=== PATIENT | female | born 1945 | race Caucasian/White ===

== ENCOUNTER → 2017-08-23 15:52 | Outpatient (CLI) | payer MEDICARE, OTHER, SELFPAY | PROVIDERS: Family Provider Family Medicine; PCP Family Medicine; Visit Provider Otolaryngology Otolaryngology/Facial Plastic Surgery | DX: J32.9 Chronic sinusitis, unspecified (principal) | CPT/HCPCS: 87070; 87077; 87205 ==

== ENCOUNTER 2017-10-02 17:39 | Emergency (ER) | payer MEDICARE, OTHER, SELFPAY ==
[2017-10-02 17:46] VITALS: BP 171/93; PULSE 80; RESP 12; TEMP 36.7; O2SAT 99; BMI 26.8
--- NOTE | 2017-10-02 18:01 | EKG12_ITS ---
Test Reason : DIZZINESS Blood Pressure : / mmHG Vent. Rate : 078 BPM Atrial Rate : 078 BPM P-R Int : 160 ms QRS Dur : 082 ms QT Int : 398 ms P-R-T Axes : 056 -35 041 degrees QTc Int : 453 ms Normal sinus rhythm Left axis deviation Abnormal ECG Confirmed by LUISITO MATHEW, ANUP ([id number]), metropolitan editor DEAN WHIPPLE ([id number]) on 10/05/2017 11:21:21 AM Referred By: Fuentes Zhang Confirmed By:ANUP JORGE MD
[2017-10-02 18:17] LABS: Absolute Lymphocyte Count 1.95 X10^3/ul (0.83-4.51); Absolute Neutrophil Count 3.6 X10^3/uL (2.0-7.7); Basophil# 0.05 X10^3/uL; Basophil% 0.8 % (0-1); Eosinophil# 0.18 X10^3/uL; Eosinophils% 2.9 % (0-5); Hematocrit 42.7 % (37-47); Hemoglobin 14.1 g/dl (12.0-15.0); Lymphocyte # 1.95 X10^3/ul (4.0); Lymphocyte % 31.2 % (19-41); Mean Corpuscular Hgb 30.3 pg (27.0-32.0); Mean Corpuscular Volume 91.8 fL (81-99); Mean Platelet Vol. 9.4 fl (6.2-12.0); Monocyte# 0.52 X10^3/uL; Monocyte% 8.3 % (0-10); Neutrophil # 3.55 X10^3/uL (2.7-7.7); Neutrophil % 56.6 % (47-70); Platelet Count 304 K/mm3 (150-450); RBC Distribution Width CV 14.3 % (11.6-14.6); RBC Distribution Width SD 46.8 fl (35.1-43.9); Red Blood Count 4.65 M/mm3 (4.2-5.4); White Blood Count 6.3 K/mm3 (4.4-11.0)
[2017-10-02 18:21] LABS: POSITIVE COUNT NO; POSITIVE DIFFERENTIAL NO; POSITIVE MORPHOLOGY NO
--- NOTE | 2017-10-02 18:30 | CT_ITS ---
STUDY: CT BRAIN WITHOUT CONTRAST REASON FOR EXAM: Female, 72 years old. Dizziness. RADIATION DOSAGE (If Supplied By Facility): CTDIvol = ( 44.99 ) mGy, DLP = ( 745.49 ) mGycm TECHNIQUE: Transaxial CT imaging of the brain was performed without administration of intravenous contrast material. Individualized dose optimization techniques were used for this CT. COMPARISON: MRI March 07, 2014 FINDINGS: Normal soft tissue structures. Normal calvarium. Normal size ventricles and extra-axial spaces for the patient's age. Normal white matter tracts of the cerebral hemispheres. Normal basal ganglia and thalami. Normal brainstem. Normal cerebellum. There is no intracranial hemorrhage. There are no findings of an acute ischemic infarction. Normal visualized paranasal sinuses. CT/Brain/Head without Contrast IMPRESSION: Normal unenhanced CT scan of the brain. Electronically Signed: Kenny Combs MD at 19:11 EDT , Service support ,
[2017-10-02 18:36] LABS: Anion Gap 7 (5-15); BUN 15 mg/dL (7-18); BUN/Creat Ratio 16.6 RATIO (10-20); Calcium,Total 9.6 mg/dL (8.5-10.1); Chloride 107 mmol/L (98-107); EST Glomerular Filtration Rate 65 mL/min (>60); Est Glom Filt Rate - Afr Amer 79 mL/min (>60); Estimated Creatinine Clearance 42.64 ml/min; Glucose 84 mg/dL (74-106); Potassium 3.7 mmol/L (3.5-5.1); Sodium Level 142 mmol/L (136-145)
[2017-10-02] MEDS: Meclizine 12.5 MG Tablet 25 MG PO (19:05)
[2017-10-02 19:08] VITALS: BP 142/72; PULSE 78; RESP 20; O2SAT 96
[2017-10-02 19:36] LABS: Bacteria 0 SEEN /hpf (None Seen); Mucous, Urine 0 SEEN /hpf (<or=2+); Red Blood Cells-Urine 0 SEEN /hpf (0-5); Squamous Epithelial Cells - UA 0 SEEN /hpf (5-10)
[2017-10-02 19:38] LABS: Color, Urine Yellow (Yellow); Glucose, Dipstick Normal (Normal); Ketone-Dipstick 5 mg/dl (Negative); Leukocyte Esterase-Dipstick 25 /ul (Negative); Nitrite-Dipstick Negative (Negative); Occult Blood-Urine Negative /ul (Negative); Protein-Dipstick Negative (Negative); Specific Gravity, Urine 1.015 (1.002-1.030); Urine Bilirubin Dipstick Negative (Negative); Urine Clarity Sl. Cloudy (Clear); Urine Urobilinogen Normal (Normal); Urine pH 6.5 (5.0 - 8.0)
[2017-10-02 19:46] LABS: White Blood Cells 0-5 SEEN /hpf (0-5)
--- NOTE | 2017-10-02 19:59 | ED.VISSUMM ---
- ER Visit Summary Date of Service: 10/02/17 Chief Complaint: Dizziness History of Present Illness: The patient is a 72 F who presents with dizziness that began approximately 5 hours prior to arrival. Patient states her dizziness feels like she is off balance. Patient states it is intermittent and lasts several minutes. Patient states it is worse with some movement of her head. Patient states there are times when she can move her head and feel off balance and other times she can move her head and feel normal. Patient denies any tinnitus. Patient denies any hearing changes. Patient denies any nausea or vomiting. Patient denies any fevers or chills. Patient denies any headaches. Patient denies any chest pain or shortness of breath. Physical Examination: Vital signs are stable. Patient is afebrile. Patient is in no acute distress. Pupils are equal, round, reactive to light bilateral. Extraocular muscles are intact. There is no nystagmus noted. Tympanic membranes are clear bilaterally. Oral mucosa is pink and moist. Oropharynx is clear. Neck is supple. Trachea is midline. There is no JVD or lymphadenopathy appreciated. Heart was regular rate and rhythm. Lungs are clear and equal bilaterally. There is good respiratory effort noted. Abdomen is soft. Bowel sounds are normal. There is no tenderness noted. Cranial nerves II through XII are intact. There are no focal motor or sensory deficits noted. The remaining physical exam is within normal limits. Test Results: CT scan of the brain was obtained and did not show any acute intracranial abnormality. Basic labs were within normal limits. There is no evidence of urinary tract infection. Treatment Plan: Patient felt better on reevaluation. Patient states her dizziness has resolved. Patient was given a prescription for meclizine to take as needed. She was instructed to follow-up with her primary care physician in 7-10 days. Patient understood and was agreeable with the plan. All questions were answered. Disposition: Discharge home Impression: Dizziness This note was generated with [employer] dictation software. It may contain incorrect words, spelling, and punctuation that were not noted in review of the chart prior to signing ED Disposition - Plan for ED Patient: Disposition: Home or Assisted Living Chief Complaint: Dizziness Diagnosis: Dizziness Instructions: ED Dizziness UKO Prescriptions: Meclizine HCl 25 mg PO Q8H PRN PRN #20 tab PRN Reason: Dizziness Referrals: Martínez Cruz MD [Primary Care Provider] -
[2017-10-02 20:13] VITALS: BP 160/80; PULSE 76; RESP 18; O2SAT 95
[2017-10-02 21:18] VITALS: BP 153/78; PULSE 81; RESP 16; O2SAT 96
== END 2017-10-02 21:44 | disposition home or self-care (01) ==
PROVIDERS: Emergency Provider Emergency Medicine; Family Provider Family Medicine; PCP Family Medicine
DX: R42 Dizziness and giddiness (principal); M06.9 Rheumatoid arthritis, unspecified; B15.9 Hepatitis A without hepatic coma; Z79.899 Other long term (current) drug therapy
CPT/HCPCS: 70450; 80048; 81001; 84484; 85025; 93005; 99285; A4216

== ENCOUNTER 2017-11-20 14:00 | Outpatient (RCR) | payer MEDICARE, OTHER, SELFPAY ==
--- NOTE | 2017-09-18 09:10 | HP.PTEVAL_ITS ---
Patient's Visit Information ROSALES BRAUN is a 72 year old F referred to Physical Therapy by Fuentes NEWSOME with a diagnosis of Spondylolithesis L4-L5, spndylolysis. Date of Evaluation: 09/18/17 Physical Therapist: Rebecca Ferrara - Visit Plan Frequency: 2x /Week Duration: 4 Weeks Plan: 2X/ week for 3-4 weeks to work on mat core stability and then progressing to gym exercises as pt does have Silver Sneakers. Work on tecnique with lifting , vaccumming etc. Also work on LE strengthening, stretching, posture with HEP - Subjective Subjective: Pt has been having LBP. They have DX her with spondylolithesis at L4-L5. She has back pain when she does too much (vaccumm, sweep and mop floor, up and down stairs with loas in arms and doesnt bother then but the next day, sitting too long in a chair it bothers her).. She wants to avoid sciatica. She is taking care of 99 year old dad and she is not lifting him just mostly house work and medical care. Pt has not trouble with stairs without a load. She sleeps ok.... She has occ some weakness in R leg and no N&T. In last 6-8 months she notices the weakness in the R leg. - Pain back pain Pain Intensity (Out of 10): 2 Pain Intensity Range: 10 - Objective Gait: walks with L leg out into abduction and decreased stance time on the L but otherwise normal gait pattern.. Trunk AROM: Flexion 75%, ext 25%. LE MMT: hip flex R 4-/5 and L 4/5, hip abd B 4/5, knee flex B 4/5, B knee ext 4/5. Patellar reflex R 0/3 and L 2+/3. -SLR. tight HS B and tight gastroc B with some discomfort on the L (ankle brace due to OA and synovitis of the L ankle) - Goals Goal 1:: I HEP Goal Time Frame: 4-6 Weeks Goal 2:: Decrease back pain to 1/10 with lifting and sitting in a chair. Goal Time Frame: 4-6 Weeks Goal 3:: Be able to demonstrate proper lifting techniques with ab brace with no back pain. Goal Time Frame: 4-6 Weeks Goal 4:: Be able to vaccumm without pain Goal Time Frame: 4-6 Weeks - Rehabilitation Potential Rehabilitation Potential: Good - Anticipated Interventions Patient/Client Instruction: Educate patient on: Plan of Care For the Purpose of:: To decrease pain, To decrease swelling/inflammation, To increase ROM, To improve nutrient delivery to tissue, To improve muscle performance and motor function, To improve ability to perform ADL's, To improve health of tissue, To increase flexibility/ROM Therapeutic Exercise to Include: Strength training, Postural training, Flexibilty training, Gait and locomotor training, Active ROM, Dynamic Lumbar Stabilization, Scapular Strength/Stabilization For the Purpose of:: To decrease pain, To decrease swelling/inflammation, To increase ROM, To improve nutrient delivery to tissue, To improve muscle performance and motor function, To improve ability to perform ADL's, To increase tolerance to activity/condition/position, To improve performance and independence with ADL's, To improve health of tissue, To increase flexibility/ ROM IF ES: Yes Cryotherapy (ice pack, ice massage): Yes Ultrasound (thermal/non thermal): Yes For the Purpose of:: To decrease pain, To increase ROM, To improve nutrient delivery to tissue Thank you for the opportunity to evaluate your patient. For Medicare and Medicare HMO plans, please review the plan of care and approve it. It will need to be FAXED BACK to us at [phone] for Medicare purposes. Please let me know if there are questions or concerns regarding this plan of care. Physician Signature: Date:
--- NOTE | 2017-10-19 14:18 | HP.PTEVAL_ITS ---
Patient's Visit Information ROSALES BRAUN is a 72 year old F referred to Physical Therapy by Fuentes Zhang with a diagnosis of Spondylolithesis L4-L5, spndylolysis. Date of Evaluation: 09/18/17 Physical Therapist: Rebecca Ferrara - Visit Plan Frequency: 2x /Week Duration: 4 Weeks Plan: Give gym routine next visit to be able to do during silver sneakers on her own independently. - Subjective Subjective: Pt has been having LBP. They have DX her with spondylolithesis at L4-L5. She has back pain when she does too much (vaccumm, sweep and mop floor, up and down stairs with loas in arms and doesnt bother then but the next day, sitting too long in a chair it bothers her).. She wants to avoid sciatica. She is taking care of 99 year old dad and she is not lifting him just mostly house work and medical care. Pt has not trouble with stairs without a load. She sleeps ok.... She has occ some weakness in R leg and no N&T. In last 6-8 months she notices the weakness in the R leg. - Pain back pain Pain Intensity (Out of 10): 0 Pain Intensity Range: 10 - Objective Gait: walks with L leg out into abduction and decreased stance time on the L but otherwise normal gait pattern.. Trunk AROM: Flexion 75%, ext 25%. LE MMT: hip flex R 4-/5 and L 4/5, hip abd B 4/5, knee flex B 4/5, B knee ext 4/5. Patellar reflex R 0/3 and L 2+/3. -SLR. tight HS B and tight gastroc B with some discomfort on the L (ankle brace due to OA and synovitis of the L ankle) - Goals Goal 1:: I HEP Goal Time Frame: 4-6 Weeks Goal 2:: Decrease back pain to 1/10 with lifting and sitting in a chair. Goal Time Frame: 4-6 Weeks Goal 3:: Be able to demonstrate proper lifting techniques with ab brace with no back pain. Goal Time Frame: 4-6 Weeks Goal 4:: Be able to vaccumm without pain Goal Time Frame: 4-6 Weeks - Rehabilitation Potential Rehabilitation Potential: Good - Anticipated Interventions Patient/Client Instruction: Educate patient on: Plan of Care For the Purpose of:: To decrease pain, To decrease swelling/inflammation, To increase ROM, To improve nutrient delivery to tissue, To improve muscle performance and motor function, To improve ability to perform ADL's, To improve health of tissue, To increase flexibility/ROM Therapeutic Exercise to Include: Strength training, Postural training, Flexibilty training, Gait and locomotor training, Active ROM, Dynamic Lumbar Stabilization, Scapular Strength/Stabilization For the Purpose of:: To decrease pain, To decrease swelling/inflammation, To increase ROM, To improve nutrient delivery to tissue, To improve muscle performance and motor function, To improve ability to perform ADL's, To increase tolerance to activity/condition/position, To improve performance and independence with ADL's, To improve health of tissue, To increase flexibility/ ROM IF ES: Yes Cryotherapy (ice pack, ice massage): Yes Ultrasound (thermal/non thermal): Yes For the Purpose of:: To decrease pain, To increase ROM, To improve nutrient delivery to tissue Thank you for the opportunity to evaluate your patient. For Medicare and Medicare HMO plans, please review the plan of care and approve it. It will need to be FAXED BACK to us at [phone] for Medicare purposes. Please let me know if there are questions or concerns regarding this plan of care. Physician Signature: Date:
--- NOTE | 2017-11-20 15:00 | HP.PTDCSUM ---
HP - PT D/C Summary It has been my pleasure to treat ROSALES BRAUN under orders from Fuentes Zhang, for the diagnosis of Spondylolithesis L4-L5, spndylolysis for a total of 10 visit(s). Discharge Date: 11/20/17 Please see the following information for a summary of their discharge status. - Subjective Subjective: She has not gotten much done last week as she wanted to do cause her had surgery and dad had some bad days. The previous week she was able to do 3X/ week here last week. Her back pain has been not bad... Pt feels comfortable with completeing exercises at home. - Pain back pain Pain Intensity (Out of 10): 0 - Objective Objective/Function: Pt still has some pain but is motiviated to continue with strengthening - Goals Goal 1:: I HEP Goal Progress: Goal Met Goal 2:: Decrease back pain to 1/10 with lifting and sitting in a chair. Goal Progress: Goal Met Goal 3:: Be able to demonstrate proper lifting techniques with ab brace with no back pain. Goal Progress: Goal Met Goal 4:: Be able to vaccumm without pain Goal Progress: Progressing - Plan Plan: dc pt TO hep - D/C Information Discharge Comments: dc pt If there are questions or concerns regarding this patient's physical therapy, please feel free to call me at [phone]. Thank you for the referral of this patient. Sincerely, Rebecca Ferrara
== END 2017-11-20 19:00 | disposition home or self-care (01) ==
LOC: PT 14:00
PROVIDERS: Family Provider Family Medicine; PCP Family Medicine; Visit Provider Internal Medicine Rheumatology
DX: M43.06 Spondylolysis, lumbar region (principal); R42 Dizziness and giddiness; M06.9 Rheumatoid arthritis, unspecified; B15.9 Hepatitis A without hepatic coma; Z79.899 Other long term (current) drug therapy
CPT/HCPCS: 70450; 80048; 81001; 84484; 85025; 93005; 97110; 97161; 97530; 99285; A4216

== ENCOUNTER → 2018-02-19 07:24 | Outpatient (CLI) | payer MEDICARE, OTHER, SELFPAY | PROVIDERS: Family Provider Family Medicine; PCP Family Medicine; Visit Provider Family Medicine | DX: Z12.31 Encounter for screening mammogram for malignant neoplasm of breast (principal) | CPT/HCPCS: 77063; 77067 ==

== ENCOUNTER → 2018-05-20 19:52 | Outpatient (CLI) | payer MEDICARE, OTHER, SELFPAY | PROVIDERS: Family Provider Family Medicine; PCP Family Medicine; Visit Provider Family Medicine | DX: G47.10 Hypersomnia, unspecified (principal) | CPT/HCPCS: 95810 ==

== ENCOUNTER → 2018-12-10 20:35 | Outpatient (CLI) | payer MEDICARE, OTHER, SELFPAY | PROVIDERS: Family Provider Family Medicine; PCP Family Medicine; Referring Provider Nurse Practitioner Primary Care; Visit Provider Nurse Practitioner Primary Care | DX: G47.33 Obstructive sleep apnea (adult) (pediatric) (principal) | CPT/HCPCS: 95811 ==

== ENCOUNTER → 2019-03-18 07:58 | Outpatient (CLI) | payer MEDICARE, OTHER, SELFPAY ==
--- NOTE | 2019-03-18 08:02 | BI_ITS ---
MAMMOGRAPHY - BILATERAL SCREENING REASON FOR EXAM: Female, 74 years old. Routine annual screening examination. PERTINENT HISTORY: Mother with breast cancer. Remote left stereotactic breast biopsy. TECHNIQUE: Digital bilateral breast ericka (3D mammographic acquisition) in the CC and MLO projections. 2-D mediolateral oblique (MLO) and craniocaudad (CC) views of both breasts were obtained. CAD: Full Field Digital Mammography with Computer Added Detection was performed. COMPARISON: Comparison is made with prior study dated February 19, 2018 and February 15, 2017. FINDINGS: Breast Composition: The breasts are heterogeneously dense, which may obscure small masses. There are no dominant masses or suspicious calcifications. Stable small benign-appearing bilateral axillary lymph nodes. No other significant abnormalities are identified. There has been no significant change since the prior study. BI/SCREEN MAMM (CAD) W/ERICKA BILAT IMPRESSION: Stable bilateral screening mammogram. Yearly follow-up mammogram recommended. (A) ASSESSMENT CATEGORY: BIRADS Category 2: Benign. A letter regarding these results will be sent to the patient by the facility within 30 days. Approximately 10% of breast cancers are not detected by mammography. A normal mammogram should not delay biopsy of a clinically suspicious abnormality. [id number] Electronically Signed: Fernando Mo, at 9:01 EDT , Service support ,
--- NOTE | 2019-03-18 08:20 | BD_ITS ---
STUDY: DUAL ENERGY X-RAY ABSORPTIOMETRY / DXA REASON FOR EXAM: Female, 74 years old. Early menopause. Loss of height. TECHNIQUE: Bone Mineral Density (BMD) measurements of lumbar spine and bilateral hips were obtained. COMPARISON: Comparison is made with prior examination dated March 14, 2017. FINDINGS: Lumbar Spine (L1-L4): g/cm2 (0.932) / T-score (-1.9) / Z-score (-0.2) Findings are suggestive of osteopenia with a moderate fracture risk. Left Femur Total: g/cm2 (0.846) / T-score (-1.3) / Z-score (0.4) Left Femoral Neck: g/cm2 (0.781) / T-score (-1.8) / Z-score (0.0) Right Femur Total: g/cm2 (0.845) / T-score (-1.3) / Z-score (0.4) Right Femoral Neck: g/cm2 (0.788) / T-score (-1.8) / Z-score (0.1) The T-Scores on the most recent prior examination were: Lumbar Spine (L1-L4): There has been worsening of bone density since the previous examination. Left Femur Total: which represents an improvement of 1.9%. Right Femur Total: which represents a worsening of 2%. BD/Dexa Bone Density Study IMPRESSION: The patient is considered osteopenic as outlined below according to World [place] Organization (WHO) criteria with a moderate fracture risk. There has been worsening of bone density since the previous examination. Reference Information: The T-score is the number of standard deviations above or below the standard which is normal for young adults at their peak bone mineral density. The World Health Organization (WHO) interprets the T-scores as follows: Above -1 Normal bone density Between -1 and -2.5 Osteopenia Equal to / or below -2.5 Osteoporosis As a practical clinical guideline, osteopenia may be graded as follows: Mild -1 through -1.5 Moderate -1.6 through -2.0 Severe -2.1 through -2.4 The Z-score is the number of standard deviations above or below age-matched controls. A Z-score of less than -1.5 would be considered abnormal. References: 1. NIH Osteoporosis and Related Bone Diseases http://www.osteo.org 2. International Society for Clinical Densitometry http://www.iscd.org 3. National Osteoporosis Foundation http://www.nof.org Electronically Signed: Fernando Mo, at 13:31 EDT , Service support ,
== END ==
PROVIDERS: Family Provider Family Medicine; PCP Family Medicine; Referring Provider Family Medicine; Visit Provider Family Medicine
DX: Z12.31 Encounter for screening mammogram for malignant neoplasm of breast (principal); Z80.3 Family history of malignant neoplasm of breast; M85.80 Other specified disorders of bone density and structure, unspecified site; Z78.0 Asymptomatic menopausal state
CPT/HCPCS: 77063; 77067; 77080

== ENCOUNTER 2019-05-18 19:11 | Emergency (ER) | payer MEDICARE, OTHER, SELFPAY ==
[2019-05-18 19:12] VITALS: BP 161/97; PULSE 115; RESP 16; TEMP 37.7; O2SAT 99; BMI 29.0
--- NOTE | 2019-05-18 20:52 | EKG12_ITS ---
Test Reason : GENERAL ILLNESS Blood Pressure : / mmHG Vent. Rate : 091 BPM Atrial Rate : 091 BPM P-R Int : 156 ms QRS Dur : 082 ms QT Int : 368 ms P-R-T Axes : 040 -35 032 degrees QTc Int : 452 ms Normal sinus rhythm Left axis deviation Possible Anterior infarct , age undetermined Abnormal ECG Confirmed by LUISITO MATHEW, ANUP ([id number]), website/blog editor MARTIN CANELA ([id number]) on 05/21/2019 11:33:30 AM Referred By: KAYLIN Confirmed By:ANUP JORGE MD
--- NOTE | 2019-05-18 20:59 | ED.VIS.GEN ---
History of Present Illness Chief Complaint: General Illness Informant: Patient Onset: Yesterday Context: Sudden Onset Timing: Intermittent Narrative: Patient is a 74-year-old female with a history of rheumatoid arthritis, on Rotuxin, Yeager and GERD presenting with fevers, chills and myalgias. Patient states her symptoms started yesterday and she felt like she is may be coming down with a cold. She notes she also has associated sore throat and sinus pressure. She checked her temperature tonight and it was 100.8 and an hour later it was 102. Patient did not take any medications prior to arrival. She denies any associated nausea or vomiting. She denies any abdominal pain or abnormal bowel movements. She denies any symptoms. She does she has a mild headache from the sinus pressure but denies any neck pain. She denies any rash. She denies any other complaints at this time. Past Medical History - Allergies and Home Meds Allergies/Adverse Reactions: Allergies tramadol Allergy (Mild, Verified 05/18/19 19:13) NAUSEA, VOMIT acetaminophen [From Tylenol] Adverse Reaction (Intermediate, Verified 05/18/19 19:13) LIVER ENZ UP ibuprofen Adverse Reaction (Intermediate, Verified 05/18/19 19:13) LIVER ENZ UP CORTISONE EYE DROPS Adverse Reaction (Uncoded 05/18/19 19:13) Other PUPILS DIDN'T DILATE OR CONTRACT. MIGRAINES Primary Care Physician: Martínez Cruz MD [Primary Care Provider] - Past Medical History: - - Rheumatoid arthritis, Yeager, GERD Surgical History: - - History of 3 previous colonoscopies Smoking Status: Never smoker - Family History Maternal Family History: Reports: - - Mother had colon cancer Review of Systems General: Reports: Chills, Fever, Malaise. Denies: Sweats Eyes: Denies: Visual changes - bilaterally, Diplopia ENT: Reports: Sore throat, - - Sinus pain. Denies: Rhinorrhea Cardiovascular: Denies: Chest pain, Palpitations Respiratory: Denies: Dyspnea, Cough, Dyspnea on exertion Gastrointestinal: Denies: Abdominal pain, Nausea, Vomiting, Diarrhea, Melena, Hematochezia Genitourinary: Denies: Dysuria, Hematuria, Frequency Musculoskeletal: Denies: Back pain, Extremity Pain Skin: Denies: Rash, Wounds Neurological: Reports: Headache. Denies: Weakness, Numbness Physical Exam Vital Signs/Narrative: Vital Signs Temp Pulse Resp BP Pulse Ox 05/18/19 19:12 99.8 F H 115 H 16 161/97 H 99 Inital Vital Signs reviewed: Yes General: Well nourished, Well developed, No Acute Distress Head: Normocephalic, Atraumatic Eyes: Perrl, EOMI ENT: Moist mucous membranes, No rhinorrhea, TM's clear - TM tube in left, dried blood present. Negative for: Dry mucous membranes, Nasal congestion, Sinus tenderness Neck: Supple, Nontender Cardiovascular: Regular rhythm, No murmurs, Tachycardia Respiratory: No distress, CTA bilaterally, Chest nontender Abdomen: Soft, Nontender, Nondistended, Normal bowel sounds Back: Nontender, Normal Inspection. Negative for: CVA tenderness Extremities: Nontender, No edema Skin: Normal color, No rash Neurological: Alert, Oriented x3, Cranial nerves II-XII grossly intact, Normal Strength, Normal Sensation Psychological: Normal affect, Normal Mood Diagnostic/Tx/Re-eval Chest X-Ray - ED: 2 View, Read by ED Physician, Read by Radiologist, No Acute Disease Clinical Impression(s) from Imaging Studies Chest X-Ray 05/18/19 21:50 IMPRESSION: Normal x-ray examination of the chest. Electronically Signed: Venancio Martínez MD at 22:34 EST , Service support , Laboratory Data 05/18/19 05/18/19 05/18/19 21:10 21:10 21:10 WBC 9.5 RBC 4.79 Hgb 13.6 Hct 41.6 MCV 86.8 MCH 28.4 MCHC 32.7 RDW Std Deviation 48.1 H RDW Coeff of Anthony 15.0 H Plt Count 338 MPV 8.8 Immature Gran % (Auto) 0.200 Neut % (Auto) 77.2 H Lymph % (Auto) 12.1 L [place] % (Auto) 9.7 Eos % (Auto) 0.4 Baso % (Auto) 0.4 Absolute Neuts (auto) 7.3 Absolute Lymphs (auto) 1.15 Nucleated RBC % 0 PT 13.4 INR 1.0 APTT 30.1 Sodium 140 Potassium 3.8 Chloride 108 H Carbon Dioxide 26.0 Anion Gap 6 BUN 12 Creatinine 0.88 Estim Creat Clear Calc 40.29 Est GFR (MDRD) Af Amer 80 Est GFR (MDRD) Non-Af 66 BUN/Creatinine Ratio 13.6 Glucose 125 H Lactic Acid Calcium 9.4 Total Bilirubin 0.30 AST 19 ALT 28 Alkaline Phosphatase 133 H Total Creatine Kinase 98 Troponin I < 0.015 Total Protein 6.7 Albumin 3.5 Globulin 3.2 Albumin/Globulin Ratio 1.1 Urine Color Urine Clarity Urine pH Ur Specific [place] Urine Protein Urine Glucose (UA) Urine Ketones Urine Occult Blood Urine Nitrite Urine Bilirubin Urine Urobilinogen Ur Leukocyte Esterase Urine RBC Urine WBC Ur Squamous Epith Cells Urine Bacteria Urine Mucus 05/18/19 05/18/19 21:10 21:15 WBC RBC Hgb Hct MCV MCH MCHC RDW Std Deviation RDW Coeff of Anthony Plt Count MPV Immature Gran % (Auto) Neut % (Auto) Lymph % (Auto) [place] % (Auto) Eos % (Auto) Baso % (Auto) Absolute Neuts (auto) Absolute Lymphs (auto) Nucleated RBC % PT INR APTT Sodium Potassium Chloride Carbon Dioxide Anion Gap BUN Creatinine Estim Creat Clear Calc Est GFR (MDRD) Af Amer Est GFR (MDRD) Non-Af BUN/Creatinine Ratio Glucose Lactic Acid 1.2 Calcium Total Bilirubin AST ALT Alkaline Phosphatase Total Creatine Kinase Troponin I Total Protein Albumin Globulin Albumin/Globulin Ratio Urine Color Yellow Urine Clarity Clear Urine pH 7.0 Ur Specific [place] 1.005 Urine Protein Negative Urine Glucose (UA) Normal Urine Ketones Negative Urine Occult Blood 10 H Urine Nitrite Negative Urine Bilirubin Negative Urine Urobilinogen Normal Ur Leukocyte Esterase 25 H Urine RBC 0-5 SEEN Urine WBC 0-5 SEEN Ur Squamous Epith Cells 0-5 SEEN Urine Bacteria 0 SEEN Urine Mucus 0 SEEN - Rhythm Strip Rhythm Strip: Sinus Rhythm Rate: 91 Ectopy: None - EKG Initial EKG Interpretation: Sinus Rhythm, - - Sinus rhythm at a rate of 91 Normal intervals Left axis deviation Normal ST segments Prior: Unchanged - 10/02/2017 - Medical Decision Making Patient is evaluated for fever, myalgias and sinus pressure. She appears febrile but no acute distress. Patient hemodynamically stable. She does spike a fever in the ER and is given Motrin. I suspect this is viral. Flu swab was negative. Patient does not have any meningeal signs. CBC is normal. Patient does not have signs of immunosuppression on this. Patient's last treatment of rituximab was almost 6 months ago. BMP is grossly normal. Lactate is normal. Troponin is normal. No dynamic EKG changes. I do not suspect pericarditis or myocarditis. Patient has a soft abdomen. I do not suspect an acute intra-abdominal infection at this time. Work-up is largely unremarkable. Cultures are pending. I did discuss with her PCP who states he will arrange short follow-up with her. Patient is instructed to call the office in the morning. Is feeling better with symptomatic treatment. She is agreeable to going home today. Patient is counseled on signs and symptoms requiring return to the emergency room. Patient verbalizes agreement and understand this plan. Patient discharged home in stable and improved condition. ED Disposition - Plan for ED Patient: Disposition: Home or Assisted Living Diagnosis: Febrile illness, acute Instructions: FEBRILE ILLNESS, Uncertain Cause (Adult) Referrals: Martínez Cruz MD [Primary Care Provider] - Additional Instructions: Call your doctor tomorrow morning to arrange follow-up in the next day or 2. It is safe for you to continue to take ibuprofen for your fever and pains. This will not affect your liver. Return to the emergency room if you have worsening symptoms. Drink plenty of fluids.
[2019-05-18 21:07] VITALS: TEMP 38.3
[2019-05-18] MEDS: Ibuprofen 200 MG Tablet 400 MG PO (21:11)
[2019-05-18 21:12] VITALS: O2SAT 100
[2019-05-18 21:17] VITALS: BP 118/59; PULSE 88; PULSE 92; RESP 18; TEMP 38.3; O2SAT 100; O2SAT 97
[2019-05-18 21:24] LABS: Bacteria 0 SEEN /hpf (None Seen); Mucous, Urine 0 SEEN /hpf (<or=2+)
[2019-05-18 21:24] LABS: Absolute Lymphocyte Count 1.15 X10^3/uL (0.83-4.51); Absolute Neutrophil Count 7.3 X10^3/uL (2.0-7.7); Basophil# 0.04 X10^3/uL; Basophil% 0.4 % (0-1); Eosinophil# 0.04 X10^3/uL; Eosinophils% 0.4 % (0-5); Hematocrit 41.6 % (37-47); Hemoglobin 13.6 g/dL (12.0-15.0); Lymphocyte # 1.15 X10^3/ul (4.0); Lymphocyte % 12.1 % (19-41); Mean Corp Hgb Conc 32.7 g/dL (32-36); Mean Corpuscular Hgb 28.4 pg (27.0-32.0); Mean Corpuscular Volume 86.8 fL (81-99); Mean Platelet Vol. 8.8 fl (6.2-12.0); Monocyte# 0.92 X10^3/uL; Monocyte% 9.7 % (0-10); NRBC Flagged by Analyzer 0 % (0-5); Neutrophil % 77.2 % (47-70); Platelet Count 338 K/mm3 (150-450); RBC Distribution Width SD 48.1 fl (35.1-43.9); Red Blood Count 4.79 M/mm3 (4.2-5.4); White Blood Count 9.5 K/mm3 (4.4-11.0)
[2019-05-18] MEDS: 0.9% Normal Saline 1,000 ML 999 ML IV (21:25)
[2019-05-18 21:33] LABS: Partial Thromboplast Time 30.1 Seconds (24.1-36.2); Prothrombin Time (Protime)PT. 13.4 SECONDS (11.7-14.9)
[2019-05-18 21:37] LABS: Color, Urine Yellow (Yellow); Glucose, Dipstick Normal (Normal); Ketone-Dipstick Negative (Negative); Leukocyte Esterase-Dipstick 25 /ul (Negative); Nitrite-Dipstick Negative (Negative); Occult Blood-Urine 10 /ul (Negative); Protein-Dipstick Negative (Negative); Specific Gravity, Urine 1.005 (1.002-1.030); Urine Bilirubin Dipstick Negative (Negative); Urine Clarity Clear (Clear); Urine Urobilinogen Normal (Normal)
[2019-05-18 21:43] LABS: Red Blood Cells-Urine 0-5 SEEN /hpf (0-5); Squamous Epithelial Cells - UA 0-5 SEEN /hpf (5-10); White Blood Cells 0-5 SEEN /hpf (0-5)
[2019-05-18 21:46] LABS: Lactic Acid 1.2 mmol/L (0.4-2.0)
--- NOTE | 2019-05-18 21:50 | RAD_ITS ---
STUDY: X-RAY CHEST REASON FOR EXAM: Female, 74 years old. Fever and cough TECHNIQUE: Frontal and lateral views of the chest. COMPARISON: Chest x-ray June 23, 2016 FINDINGS: The lungs are clear and expanded. There is no demonstrated pleural abnormality. Normal size heart. Normal mediastinum and gertrudis. Normal visualized pulmonary arteries. Normal visualized aortic arch and descending thoracic aorta. Normal visualized thoracic spine. Normal visualized ribs, clavicles, and shoulders. There is no demonstrated abnormality of the visualized soft tissue structures of the upper abdomen. RAD/Chest PA and Lateral IMPRESSION: Normal x-ray examination of the chest. Electronically Signed: Venancio Martínez MD at 22:34 EST , Service support ,
[2019-05-18 21:59] LABS: ALB/GLOB Ratio 1.1 RATIO (0.9-2.4); AST(SGOT) 19 U/L (15-37); Alanine Aminotransfer ALT/SGPT 28 U/L (13-56); Albumin, Serum 3.5 g/dL (3.2-5.0); Alkaline Phosphatase 133 U/L (45-117); Anion Gap 6 (5-15); BUN 12 mg/dL (7-18); BUN/Creat Ratio 13.6 RATIO (10-20); CPK Total, Creatine Kinase 98 U/L (26-192); Calcium,Total 9.4 mg/dL (8.5-10.1); Chloride 108 mmol/L (98-107); Creatinine, Serum 0.88 mg/dL (0.55-1.02); EST Glomerular Filtration Rate 66 mL/min (>60); Est Glom Filt Rate - Afr Amer 80 mL/min (>60); Estimated Creatinine Clearance 40.29 ml/min; Globulin 3.2 g/dL (2.2-4.2); Glucose 125 mg/dL (74-106); Potassium 3.8 mmol/L (3.5-5.1); Protein, Total 6.7 g/dL (6.4-8.2); Sodium Level 140 mmol/L (136-145)
[2019-05-18 22:13] VITALS: BP 101/56; PULSE 85; RESP 14; TEMP 37.6; O2SAT 95
[2019-05-18 22:56] VITALS: BP 120/54; PULSE 93; RESP 18; TEMP 36.9
== END 2019-05-18 23:24 | disposition home or self-care (01) ==
PROVIDERS: Emergency Provider Emergency Medicine; Family Provider Family Medicine; PCP Family Medicine
DX: R50.9 Fever, unspecified (principal); M06.9 Rheumatoid arthritis, unspecified; K21.9 Gastro-esophageal reflux disease without esophagitis; K75.81 Nonalcoholic steatohepatitis (NASH); Z79.899 Other long term (current) drug therapy
CPT/HCPCS: 36415; 71046; 80053; 81001; 82550; 83605; 84484; 85025; 85610; 85730; 87040; 87804; 93005; 96360; 96361; 99285; J7030; A4216

== ENCOUNTER → 2020-03-22 17:35 | Outpatient (CLI) | payer MEDICARE, OTHER, SELFPAY | PROVIDERS: PCP Family Medicine; Referring Provider Family Medicine; Visit Provider Family Medicine | DX: Z20.828 Contact with and (suspected) exposure to other viral communicable diseases (principal) | CPT/HCPCS: 87635; C9803; U0003 ==

== ENCOUNTER → 2020-04-09 07:10 | Outpatient (CLI) | payer MEDICARE, OTHER, SELFPAY ==
--- NOTE | 2020-04-09 07:16 | BI_ITS ---
MAMMOGRAPHY - BILATERAL SCREENING REASON FOR EXAM: Female, 75 years old. Routine annual screening examination. PERTINENT HISTORY: Mother with breast cancer. Remote left stereotactic breast biopsy. TECHNIQUE: Digital bilateral breast ericka (3D mammographic acquisition) in the CC and MLO projections. 2-D mediolateral oblique (MLO) and craniocaudad (CC) views of both breasts were obtained. CAD: Full Field Digital Mammography with Computer Added Detection was performed. COMPARISON: Comparison is made with prior examination is 03/18/2019 and 02/19/2018. FINDINGS: Breast Composition: The breasts are heterogeneously dense, which may obscure small masses. There are no dominant masses or suspicious calcifications. Stable small benign appearing bilateral axillary lymph nodes. No other significant abnormalities are identified. There has been no significant change since the prior study. BI/SCREEN MAMM (CAD) W/ERICKA BILAT IMPRESSION: Stable bilateral screening mammogram. Yearly follow-up mammogram recommended. (A) ASSESSMENT CATEGORY: BIRADS Category 2: Benign. A letter regarding these results will be sent to the patient by the facility within 30 days. Approximately 10% of breast cancers are not detected by mammography. A normal mammogram should not delay biopsy of a clinically suspicious abnormality. [id number] Electronically Signed: Fernando Mo, at 10:10 EDT , Service support ,
== END ==
PROVIDERS: PCP Family Medicine; Referring Provider Family Medicine; Visit Provider Family Medicine
DX: Z12.31 Encounter for screening mammogram for malignant neoplasm of breast (principal); Z80.3 Family history of malignant neoplasm of breast
CPT/HCPCS: 77063; 77067

== ENCOUNTER → 2021-04-12 15:15 | Outpatient (CLI) | payer MEDICARE, OTHER, SELFPAY ==
--- NOTE | 2021-04-12 15:19 | BI_ITS ---
MAMMOGRAPHY - BILATERAL SCREENING REASON FOR EXAM: Female, 76 years old. Routine annual screening examination. PERTINENT HISTORY: Mother with breast cancer. TECHNIQUE: Digital bilateral breast ericka (3D mammographic acquisition) in the CC and MLO projections. 2-D mediolateral oblique (MLO) and craniocaudad (CC) views of both breasts were obtained. CAD: Full Field Digital Mammography with Computer Added Detection was performed. COMPARISON: Comparison is made with prior study near 04/09/2020 03/18/2019. FINDINGS: Breast Composition: There are scattered areas of fibroglandular density. There are no dominant masses or suspicious calcifications. Stable small benign-appearing bilateral extremities. No other significant abnormalities are identified. There has been no significant change since the prior study. BI/SCRN MAMM (CAD)W/ERICKA BILAT IMPRESSION: Stable bilateral screening mammogram. Yearly follow-up mammogram recommended. (A) ASSESSMENT CATEGORY: BIRADS Category 2: Benign. A letter regarding these results will be sent to the patient by the facility within 30 days. Approximately 10% of breast cancers are not detected by mammography. A normal mammogram should not delay biopsy of a clinically suspicious abnormality. [id number] Electronically Signed: Fernando Mo MD at 8:32 EDT , Service support ,
--- NOTE | 2021-04-12 15:24 | BD_ITS ---
STUDY: DUAL ENERGY X-RAY ABSORPTIOMETRY / DXA REASON FOR EXAM: Female, 76 years old. [id number]. The patient is postmenopausal. TECHNIQUE: Bone Mineral Density (BMD) measurements of lumbar spine and bilateral hips were obtained. COMPARISON: Comparison is made with prior study 03/18/2019. FINDINGS: Lumbar Spine (L1-L4): g/cm2 (0.826) / T-score (-1.4) / Z-score (0.9) Findings are suggestive of osteopenia with a low fracture risk. Left Femur Total: g/cm2 (0.775) / T-score (-1.4) / Z-score (0.5) Left Femoral Neck: g/cm2 (0.614) / T-score (-2.1) / Z-score (0.0) Right Femur Total: g/cm2 (0.818) / T-score (-1.0) / Z-score (0.8) Right Femoral Neck: g/cm2 (0.6-2) / T-score (-2.0) / Z-score (0.1) The T-Scores on the most recent prior examination were: Lumbar Spine (L1-L4): There has been improvement of bone density since the previous examination. Left Femur Total: which represents a worsening of 1.3%. Right Femur Total: which represents an improvement of 4.5%. BD/Dexa Bone Density Study IMPRESSION: The patient is considered osteopenic as outlined below according to World [place] Organization (WHO) criteria with a moderate fracture risk. There has been improvement of bone density since the previous examination. Reference Information: The T-score is the number of standard deviations above or below the standard which is normal for young adults at their peak bone mineral density. The World Health Organization (WHO) interprets the T-scores as follows: Above -1 Normal bone density Between -1 and -2.5 Osteopenia Equal to / or below -2.5 Osteoporosis As a practical clinical guideline, osteopenia may be graded as follows: Mild -1 through -1.5 Moderate -1.6 through -2.0 Severe -2.1 through -2.4 The Z-score is the number of standard deviations above or below age-matched controls. A Z-score of less than -1.5 would be considered abnormal. References: 1. NIH Osteoporosis and Related Bone Diseases www osteo.org 2. International Society for Clinical Densitometry www iscd.org 3. National Osteoporosis Foundation www nof.org Electronically Signed: Fernando Mo MD at 14:36 EDT , Service support ,
== END ==
PROVIDERS: PCP Family Medicine; Referring Provider Family Medicine; Visit Provider Family Medicine
DX: Z13.820 Encounter for screening for osteoporosis (principal); Z78.0 Asymptomatic menopausal state; Z12.31 Encounter for screening mammogram for malignant neoplasm of breast; Z80.3 Family history of malignant neoplasm of breast
CPT/HCPCS: 77063; 77067; 77080

== ENCOUNTER 2021-10-03 10:02 | Emergency (ER) | payer MEDICARE, OTHER, SELFPAY ==
[2021-10-03] VITALS (12 sets, daily range): BP systolic 129–156; BP diastolic 70–78; PULSE 77–116; RESP 6–26; TEMP 36.2–38.2; O2SAT 84–98; BMI 27.1
--- NOTE | 2021-10-03 10:53 | EKG12_ITS ---
Test Reason : WEAKNESS Blood Pressure : / mmHG Vent. Rate : 088 BPM Atrial Rate : 088 BPM P-R Int : 146 ms QRS Dur : 086 ms QT Int : 382 ms P-R-T Axes : 036 -39 018 degrees QTc Int : 462 ms Normal sinus rhythm Left axis deviation Abnormal ECG Confirmed by YNES MATHEW, LAURIE ([id number]), design editor MARTIN CANELA ([id number]) on 10/05/2021 11:37:17 AM Referred By: AUDREY Confirmed By:LAURIE QUICK MD
--- NOTE | 2021-10-03 10:54 | EDS_ITS ---
HPI HPI - URI History of Present Illness Chief Complaint: Weakness Narrative Narrative: 76-year-old female presenting with history of fever, cough, shortness of breath since 20 September. Patient reports that she started to get body aches and chills as well as low-grade fevers on 20 September. She was tested for COVID-19 on the and tested positive. Since that time she continues to have intermittent fevers. Her last high fever was 103 2 days ago. She reports 100.66 temperature prior to coming into the ER. She states that her fever seemed to spike at night. She does have body aches. She reports generalized fatigue. She was watching her pulse oximeter and states that it was down to 95. She does have dyspnea with exertion. Patient does not have any lung disease that she knows of. No history of DVT/PE. No cardiac history that she reports. Patient states that she was initially placed on doxycycline and after full course of this was on a Z-Hector. She has already done dexamethasone 6 mg and had a full course of this. The patient reports previous on Rituxan in June. She has not had any since. ROS ROS ED Constitutional Constitutional ED: Reports chills and fever(s) Eyes Eyes: Denies blurry vision or diplopia ENT ENT ED: Denies rhinorrhea or sore throat Respiratory/Chest Respiratory/Chest: Reports cough, dyspnea and dyspnea on exertion Gastrointestinal Gastrointestinal: Denies abdominal pain, nausea or vomiting Genitourinary Genitourinary ED: Denies dysuria or hematuria Musculoskeletal Musculoskeletal: Reports myalgias; Denies arthralgias, back pain or neck pain Integumentary Denies abscess or rash Neurologic Neurologic: Denies headache(s) or weakness Psychiatric Psychiatric: Denies anxiety or depression [facility] Medical History (Updated 10/03/21 @ 12:20 by Janell Roy) History of concussion History of hepatitis A History of malaria History of rheumatic fever as a child Hyperlipidemia Rheumatoid arthritis Home Medications Fish Oil 1 ea PO BID 08/05/13 [History Last Taken Unknown] cholecalciferol (vitamin D3) [Vitamin D3] 2,000 unit PO DAILY 08/05/13 [History Last Taken Unknown] imipramine HCl [Tofranil] 10 mg PO QHS 08/05/13 [History Last Taken Unknown] pantoprazole 40 mg PO DAILY 08/05/13 [History Last Taken 05/08/17 06:00] calcium carbonate [Caltrate-600] 1,200 mg PO BIDCM 03/07/14 [History Last Taken Unknown] Rotuxin IV QMONTH 01/21/16 [History Last Taken Unknown] atorvastatin 5 mg PO QHS 01/21/16 [History Last Taken Unknown] biotin 5,000 mcg PO DAILY 05/07/17 [History Last Taken Unknown] zinc 50 mg PO DAILY 05/07/17 [History Last Taken Unknown] ferrous sulfate [iron] 325 mg PO DAILY 10/03/21 [History Last Taken Unknown] latanoprost 1 drp EACH EYE DAILY 10/03/21 [History Last Taken Unknown] Allergy/AdvReac Type Severity Reaction Status Date / Time tramadol Allergy Mild NAUSEA, Verified 10/03/21 10:06 VOMIT acetaminophen [From Tylenol] AdvReac Intermediate LIVER ENZ Verified 10/03/21 10:06 UP ibuprofen AdvReac Intermediate LIVER ENZ Verified 10/03/21 10:06 UP CORTISONE EYE DROPS AdvReac Other Uncoded 10/03/21 10:06 Social History Smoking Status: Never smoker EXAM Physical Exam Const Vital Signs: 10/03/21 10:03 10/03/21 10:53 10/03/21 11:39 Temperature 97.1 F L 98.3 F Temperature Source Temporal Oral Pulse Rate 100 90 Respiratory Rate 18 20 H Respiratory Effort Short of Breath Respiratory Pattern Normal Blood Pressure 140/70 H Blood Pressure Mean 93 Pulse Ox 97 96 Oxygen Delivery Method Room Air Room Air Oxygen Flow Rate (L/min) 10/03/21 12:08 10/03/21 12:09 10/03/21 12:17 Temperature 98.8 F Temperature Source Oral Pulse Rate 78 77 Respiratory Rate 6 L 18 Respiratory Effort Respiratory Pattern Blood Pressure 130/78 H 156/76 H Blood Pressure Mean 95 102 Pulse Ox 97 98 Oxygen Delivery Method Room Air Room Air Oxygen Flow Rate (L/min) 10/03/21 13:00 10/03/21 13:35 10/03/21 13:41 Temperature 99.9 F H Temperature Source Oral Pulse Rate 110 H 116 H Respiratory Rate 24 H 26 H Respiratory Effort Respiratory Pattern Blood Pressure Blood Pressure Mean Pulse Ox 84 95 Oxygen Delivery Method Nasal Cannula Room Air Oxygen Flow Rate (L/min) 2 10/03/21 14:19 10/03/21 15:42 Temperature 100.8 F H Temperature Source Oral Pulse Rate 110 H Respiratory Rate 20 H Respiratory Effort Respiratory Pattern Blood Pressure 129/78 H Blood Pressure Mean 95 Pulse Ox 94 Oxygen Delivery Method Nasal Cannula Oxygen Flow Rate (L/min) 2 Positive well nourished General Appearance ED: NAD; Negative for pallor HEENT normocephalic and atraumatic Eyes PERRL Neck no lymphadenopathy, supple and no meningeal signs Resp normal respiratory effort Auscultation: rales right base and mid Cardio Rate: regular rate Rhythm: regular rhythm Back/Spine no CVA tenderness Neuro oriented x3, CN's II-XII intact bilaterally and no sensory deficits noted Sensorium / Orientation: alert Motor Exam: strength 5/5 throughout Skin General Skin Exam: Negative for jaundice or pallor Rashes: no rashes MDM MDM MDM Narrative Medical decision making narrative: Patient day 14 after having Covid. She is having shortness of breath and hypoxia at home. She complains of continued fevers as well. Her fever prior to arrival was 100.6. Due to hypoxia and fever sepsis work-up was started. Patient had EKG which on my interpretation shows a normal sinus rhythm ventricular rate of 88 bpm without sign of ischemic change. Chest x-ray on my interpretation shows bilateral infiltrates in the radiologist agree. The radiologist does read these as early. I did obtain a CTA of the chest due to her history of Covid and the hypoxia. CTA chest is interpreted by radiologist does seem to be consistent with multifocal pneumonia such as COVID- 19. No PE or dissection. CBC within normal limits. PT/INR normal limits. Renal function electrolytes are normal. Slight bump in AST at 61 and ALT at 67 otherwise normal. High-sensitivity troponin is 3. Lactic acid normal at 1.3. Urinalysis normal. Given her relatively normal work-up I did ambulate her and she did drop to 86% with ambulation but with 2 L she maintains 93%. She feels comfortable going home with oxygen if it set up. She is already had dexamethasone. I do not believe she needs a third antibiotic. I discussed with her PCP Dr. Cruz and he will follow up with her. She was set up for home O2. Return precautions discussed. Impression: 1 hypoxic respiratory failure 2. COVID-19 pneumonitis 3. Generalized weakness Lab Data Attestation: I reviewed the patient's lab results. Labs: Laboratory Results - last 24 hr 10/03/21 10/03/21 10/03/21 11:50 11:50 11:50 WBC 8.4 RBC 4.86 Hgb 14.9 Hct 43.2 MCV 88.9 MCH 30.7 MCHC 34.5 RDW Std Deviation 44.2 H RDW Coeff of Anthony 13.4 Plt Count 303 MPV 8.7 Immature Gran % (Auto) 1.400 H Neut % (Auto) 80.1 H Lymph % (Auto) 12.9 L [place] % (Auto) 5.2 Eos % (Auto) 0.0 Baso % (Auto) 0.4 Absolute Neuts (auto) 6.7 Absolute Lymphs (auto) 1.08 Nucleated RBC % 0 PT 13.8 INR 1.1 APTT 27.5 Sodium 139 Potassium 3.5 Chloride 110 H Carbon Dioxide 26.0 Anion Gap 3 L BUN 15 Creatinine 0.76 Estim Creat Clear Calc 34.38 Est GFR (MDRD) Af Amer 94 Est GFR (MDRD) Non-Af 78 BUN/Creatinine Ratio 19.6 Glucose 95 Lactic Acid Calcium 8.3 L Total Bilirubin 0.40 AST 61 H ALT 67 H Alkaline Phosphatase 109 Troponin I High Sens < 3 L Total Protein 6.0 L Albumin 2.7 L Globulin 3.3 Albumin/Globulin Ratio 0.8 L Urine Color Urine Clarity Urine pH Ur Specific [place] Urine Protein Urine Glucose (UA) Urine Ketones Urine Occult Blood Urine Nitrite Urine Bilirubin Urine Urobilinogen Ur Leukocyte Esterase Urine RBC Urine WBC Ur Squamous Epith Cells Urine Bacteria Urine Mucus 10/03/21 10/03/21 11:50 13:20 WBC RBC Hgb Hct MCV MCH MCHC RDW Std Deviation RDW Coeff of Anthony Plt Count MPV Immature Gran % (Auto) Neut % (Auto) Lymph % (Auto) [place] % (Auto) Eos % (Auto) Baso % (Auto) Absolute Neuts (auto) Absolute Lymphs (auto) Nucleated RBC % PT INR APTT Sodium Potassium Chloride Carbon Dioxide Anion Gap BUN Creatinine Estim Creat Clear Calc Est GFR (MDRD) Af Amer Est GFR (MDRD) Non-Af BUN/Creatinine Ratio Glucose Lactic Acid 1.3 Calcium Total Bilirubin AST ALT Alkaline Phosphatase Troponin I High Sens Total Protein Albumin Globulin Albumin/Globulin Ratio Urine Color Yellow Urine Clarity Clear Urine pH 6.5 Ur Specific [place] 1.010 Urine Protein 15 H Urine Glucose (UA) Normal Urine Ketones Negative Urine Occult Blood 10 H Urine Nitrite Negative Urine Bilirubin Negative Urine Urobilinogen Normal Ur Leukocyte Esterase Negative Urine RBC 0 SEEN Urine WBC 0-5 SEEN Ur Squamous Epith Cells 0-5 SEEN Urine Bacteria 0 SEEN Urine Mucus 0 SEEN Radiography Diagnostic Testing: Clinical Impression(s) from Imaging Studies Chest X-Ray 10/03/21 11:20 IMPRESSION: Findings suggestive of early bilateral upper lobe infiltrates. Electronically Signed: Fernando Mo MD at 12:08 EDT , Chest CTA 10/03/21 12:40 IMPRESSION: Bilateral airspace disease in the left breast show peripheral distribution as described. Findings suggestive of pneumonitis associated with Covid. Electronically Signed: Fernando Mo MD at 13:38 EDT , Discharge Plan Triage Chief Complaint: Weakness ED Provider: Kobe Alston Dx/Rx/DC Orders Instructions: Coronavirus Disease 2019 (COVID-19): Caring for Yourself or Others Prescriptions: No Action pantoprazole 40 MG tablet 40 mg PO DAILY RF: 0 cholecalciferol (vitamin D3) [Vitamin D3] 1,000 UNIT capsule 2,000 unit PO DAILY RF: 0 Fish Oil 1 EACH capsule 1 ea PO BID RF: 0 imipramine HCl [Tofranil] 10 MG tablet 10 mg PO QHS RF: 0 calcium carbonate [Caltrate 600] 600 MG tablet 1,200 mg PO BIDCM RF: 0 atorvastatin 10 MG tablet 5 mg PO QHS RF: 0 Rotuxin IV QMONTH RF: 0 zinc 50 MG tablet 50 mg PO DAILY RF: 0 biotin 5,000 MCG tablet,disintegrating 5,000 mcg PO DAILY RF: 0 latanoprost 0.005 % Drops 1 drp EACH EYE DAILY RF: 0 ferrous sulfate [iron] 325 mg (65 mg iron) Tablet 325 mg PO DAILY RF: 0 Primary Care Provider: Martínez Cruz Referrals: Martínez Cruz MD [Primary Care Provider] - Disposition Disposition: Home, Self Care
--- NOTE | 2021-10-03 11:20 | RAD_ITS ---
STUDY: X-RAY CHEST REASON FOR EXAM: Female, 76 years old. Dyspnea. Recent diagnosis of Covid TECHNIQUE: Single AP portable view of the chest. COMPARISON: Comparison is made with prior study dated 05/18/2019. FINDINGS: EKG electrodes are seen. I suspect an early right upper lobe infiltrate as well as in the left upper lobe infiltrate. There is no demonstrated pleural abnormality. Normal size heart. Normal mediastinum and gertrudis. Normal visualized pulmonary arteries. Normal visualized aortic arch and descending thoracic aorta. Normal visualized thoracic spine. Normal visualized ribs, clavicles, and shoulders. There is no demonstrated abnormality of the visualized soft tissue structures of the upper abdomen. RAD/Chest 1 View (Portable) IMPRESSION: Findings suggestive of early bilateral upper lobe infiltrates. Electronically Signed: Fernando Mo MD at 12:08 EDT ,
[2021-10-03 12:12] LABS: Absolute Lymphocyte Count 1.08 X10^3/uL (0.83-4.51); Absolute Neutrophil Count 6.7 X10^3/uL (2.0-7.7); Basophil# 0.03 X10^3/uL; Basophil% 0.4 % (0-1); Hematocrit 43.2 % (37-47); Hemoglobin 14.9 g/dL (12.0-15.0); Lymphocyte # 1.08 X10^3/ul (0.83-4.51); Lymphocyte % 12.9 % (19-41); Mean Corp Hgb Conc 34.5 g/dL (32-36); Mean Corpuscular Hgb 30.7 pg (27.0-32.0); Mean Corpuscular Volume 88.9 fL (81-99); Mean Platelet Vol. 8.7 fl (6.2-12.0); Monocyte# 0.44 X10^3/uL; Monocyte% 5.2 % (0-10); NRBC Flagged by Analyzer 0 % (0-5); Neutrophil # 6.73 X10^3/uL (2.7-7.7); Neutrophil % 80.1 % (47-70); Platelet Count 303 K/mm3 (150-450); RBC Distribution Width CV 13.4 % (11.6-14.6); RBC Distribution Width SD 44.2 fl (35.1-43.9); Red Blood Count 4.86 M/mm3 (4.2-5.4); White Blood Count 8.4 K/mm3 (4.4-11.0)
[2021-10-03 12:20] LABS: International Normalized Ratio 1.1; Prothrombin Time (Protime)PT. 13.8 SECONDS (11.7-14.9)
[2021-10-03 12:26] LABS: ALB/GLOB Ratio 0.8 RATIO (0.9-2.4); AST(SGOT) 61 U/L (15-37); Alanine Aminotransfer ALT/SGPT 67 U/L (13-56); Albumin, Serum 2.7 g/dL (3.2-5.0); Alkaline Phosphatase 109 U/L (45-117); Anion Gap 3 (5-15); BUN 15 mg/dL (7-18); BUN/Creat Ratio 19.6 RATIO (10-20); Calcium,Total 8.3 mg/dL (8.5-10.1); Chloride 110 mmol/L (98-107); Creatinine, Serum 0.76 mg/dL (0.55-1.02); EST Glomerular Filtration Rate 78 mL/min (>60); Est Glom Filt Rate - Afr Amer 94 mL/min (>60); Estimated Creatinine Clearance 34.38 ml/min; Globulin 3.3 g/dL (2.2-4.2); Glucose 95 mg/dL (74-106); Potassium 3.5 mmol/L (3.5-5.1); Sodium Level 139 mmol/L (136-145); Troponin-I HS < 3 pg/mL (3.0-54.0)
[2021-10-03 12:29] LABS: Partial Thromboplast Time 27.5 Seconds (24.1-36.2)
[2021-10-03 12:32] LABS: Lactic Acid 1.3 mmol/L (0.4-1.9)
--- NOTE | 2021-10-03 12:40 | CT_ITS ---
STUDY: CTA CHEST REASON FOR EXAM: Female, 76 years old. Dyspnea RADIATION DOSAGE (If Supplied By Facility): CTDIvol = ( 6.36 ) mGy, DLP = ( 210.04 ) mGycm TECHNIQUE: The examination was performed with the intravenous administration of IV 100mL Isovue-370. Post-processing of the angiographic images was performed, with multiplanar reformation and 3D reconstruction. Individualized dose optimization techniques were used for this CT. COMPARISON: Comparison is made with prior chest radiograph done earlier today. FINDINGS: Normal enhancement of the main pulmonary artery and right and left pulmonary arteries. Normal enhancement of the bilateral peripheral pulmonary arteries. There is no demonstrated pulmonary embolism. There is atherosclerotic calcification of the aortic arch with tortuosity. There is no demonstrated aortic dissection. There are calcifications of the coronary arteries. Normal mediastinum. Normal hilar regions. Normal visualized trachea and bronchi. The lungs are well expanded. Diffuse bilateral patchy alveolar infiltrates in both upper and lower lobes in a preferential peripheral distribution. This may represent pneumonitis associated with Covid. Normal pleura. Normal chest wall structures. Normal osseous structures. Findings suggest lumbar sludge in the gallbladder lumen. CT/CTA Chest W/WO Contrast IMPRESSION: Bilateral airspace disease in the left breast show peripheral distribution as described. Findings suggestive of pneumonitis associated with Covid. Electronically Signed: Fernando Mo MD at 13:38 EDT ,
[2021-10-03 13:26] LABS: Bacteria 0 SEEN /hpf (None Seen); Mucous, Urine 0 SEEN /hpf (<or=2+); Red Blood Cells-Urine 0 SEEN /hpf (0-5)
[2021-10-03 13:43] LABS: Color, Urine Yellow (Yellow); Glucose, Dipstick Normal (Normal); Ketone-Dipstick Negative (Negative); Leukocyte Esterase-Dipstick Negative /ul (Negative); Nitrite-Dipstick Negative (Negative); Occult Blood-Urine 10 /ul (Negative); Protein-Dipstick 15 mg/dl (Negative); Urine Bilirubin Dipstick Negative (Negative); Urine Clarity Clear (Clear); Urine Urobilinogen Normal (Normal); Urine pH 6.5 (5.0 - 8.0)
[2021-10-03] MEDS: Ondansetron 4 MG/2 ML Vial IV (13:44)
[2021-10-03] MEDS: Acetaminophen 500 MG Tablet 1000 MG PO (13:45)
[2021-10-03 13:54] LABS: Squamous Epithelial Cells - UA 0-5 SEEN /hpf (5-10); White Blood Cells 0-5 SEEN /hpf (0-5)
--- NOTE | 2021-10-03 14:35 | CM.ED ---
Social Work Consult: Home Oxygen Referral source: Dr. Alston Met with patient in room. Introduced self and social sciences professor role. Patient agreeable to speak with this social sciences professor. Patient aware of recommendation for home oxygen. Patient agreeable to home oxygen being set up through [employer]. Patient with Medicare as insurance. Patient denies any further needs/concerns. This social sciences professor communicating that a portable tank will be provided to patient for going home, when patient gets home patient will need to call [facility] [place], number can be found on oxygen tank. Patient and patient spouse voiced understanding. Telephone call to Idania Meredith. This social sciences professor updated Idania that patient is being discharged to home with oxygen. Order faxed. Medical team updated. PLAN: Home with oxygen. Don TRAN, WENDIE-S
--- NOTE | 2021-10-05 15:45 | CASEMGMT ---
COVID F/U call: Pt dx'd with COVID 09/22/21 and presented to [facility] ED on 10/03/21, for increased weakness, SOB w/ exertion. Pt d/c'd home from ED on 2L continuous home oxygen. Pt states her sats have been staying 92-93% but is still having fevers/malaise. Pt speaks in full sentences on phone in no distress. Pt states had f/u with Dr. Cruz today and he ordered another CXR today, which she just had completed at [facility]. Pt aware that Dr. Cruz should f/u with her regarding same. Pt is aware of neg blood cultures and to call Dr. Collado for any worsening of sx's. SStrizwana WALTERS CM
== END 2021-10-03 16:09 | disposition home or self-care (01) ==
PROVIDERS: Emergency Provider Student in an Organized Health Care Education/Training Program; PCP Family Medicine; Visit Provider Student in an Organized Health Care Education/Training Program
DX: U07.1 COVID-19 (principal); M06.9 Rheumatoid arthritis, unspecified; J12.82 Pneumonia due to coronavirus disease 2019; R06.02 Shortness of breath; R09.02 Hypoxemia; E78.5 Hyperlipidemia, unspecified; Z79.899 Other long term (current) drug therapy
CPT/HCPCS: 99285; 96374; 96361; 71045; 71275; 80053; 81001; 83605; 84484; 85025; 85610; 85730; 87040; 87086; 87088; 93005; J7040; Q9967; A4216; J2405

== ENCOUNTER 2021-10-06 14:45 | Inpatient (IN) | payer MEDICARE, OTHER, SELFPAY ==
[2021-10-06] VITALS (9 sets, daily range): BP systolic 108–168; BP diastolic 69–76; PULSE 72–93; RESP 16–22; TEMP 36.8–37.1; O2SAT 90–99; BMI 27.1; BMI 27.6
--- NOTE | 2021-10-06 15:07 | EX.ED.DYSGE1 ---
HPI <AVI Barfield - Last Filed: 10/06/21 18:40> History of Present Illness Chief Complaint: Shortness of Breath Narrative Narrative: 76-year-old female with history of rheumatoid arthritis that gets Rituxan injections monthly, hyperlipidemia presents to the emergency department for worsening shortness of breath. Patient was diagnosed with COVID-19 on September 22, she had symptoms beginning 2 days earlier. Patient was recently seen here 4 days ago, given oxygen around 2 L. Patient states that overall she has been feeling generally worse, she is having more oxygen demands, states that her pulse oxygenation is dropping into the mid to low 80s with any sort of physical exertion. Patient states continued to have fevers over 103 and is needing to take Tylenol every 6 hours. Patient states that she cannot care for self at home and is here for evaluation. PFS <AVI Barfield - Last Filed: 10/06/21 18:40> [facility] Medical History (Updated 10/06/21 @ 19:[address] Levar Miller MD) CPAP (continuous positive airway pressure) dependence GERD (gastroesophageal reflux disease) History of concussion History of hepatitis A History of malaria History of rheumatic fever as a child Hyperlipidemia Rheumatoid arthritis Sleep apnea Home Medications Fish Oil 1 ea PO BID 08/05/13 [History Last Taken Unknown] cholecalciferol (vitamin D3) [Vitamin D3] 2,000 unit PO DAILY 08/05/13 [History Last Taken Unknown] imipramine HCl [Tofranil] 10 mg PO QHS 08/05/13 [History Last Taken 10/05/21] pantoprazole 40 mg PO DAILY 08/05/13 [History Last Taken 10/06/21] calcium carbonate [Caltrate-600] 1,200 mg PO BIDCM 03/07/14 [History Last Taken Unknown] Rotuxin IV .[id number] 01/21/16 [History Last Taken 07/21/21] atorvastatin 5 mg PO QHS 01/21/16 [History Last Taken 10/05/21] biotin 5,000 mcg PO DAILY 05/07/17 [History Last Taken Unknown] zinc 50 mg PO DAILY 05/07/17 [History Last Taken Unknown] ferrous sulfate [iron] 325 mg PO DAILY 10/03/21 [History Last Taken Unknown] latanoprost 1 drp EACH EYE DAILY 10/03/21 [History Last Taken 10/05/21] ipratropium bromide [Atrovent] 2 spray INTRANASAL BID 10/06/21 [History Last Taken 10/05/21] Allergy/AdvReac Type Severity Reaction Status Date / Time tramadol Allergy Mild NAUSEA, Verified 10/06/21 14:49 VOMIT acetaminophen [From Tylenol] AdvReac Intermediate LIVER ENZ Verified 10/06/21 14:49 UP ibuprofen AdvReac Intermediate LIVER ENZ Verified 10/06/21 14:49 UP CORTISONE EYE DROPS AdvReac Other Uncoded 10/06/21 14:49 Family History (Updated 10/06/21 @ 18:[address] Isai Caruso MD) Other Cancer Heart disease Surgical History Status post spigelian hernia repair, follow-up exam Social History Smoking Status: Never smoker ROS <AVI Barfield - Last Filed: 10/06/21 18:40> ROS ED ROS Narrative Constitutional: Negative for weight loss. Positive fever and chills, positive for weakness Eyes: Negative for vision loss, vision change, double vision ENT: Negative for any sore throat, ear pain, congestion Cardiovascular: Negative for any chest pain, tightness, palpitations, racing heartbeat Respiratory: Negative for any sputum production, hemoptysis, orthopnea. Positive for cough, shortness of breath, shortness of breath on exertion Gastrointestinal: Negative for any abdominal pain, nausea, vomiting, diarrhea, constipation, blood in stool, blood in vomit : Negative for any urinary frequency, incontinence, dysuria, retention, blood in urine Muscle skeletal: Negative for any muscle joint pain, stiffness, myalgias, arthralgias, neck pain, back pain Neurological: Negative for any headache, dizziness, syncope, numbness or tingling Skin: Negative for any rashes, lumps, itching, abrasions, lacerations Psychiatric: Negative for any depression, anxiety, stress, suicidal ideation, homicidal ideation Hematologic: Negative for any easy bruising, excessive bruising, easy bleeding Allergies: Negative for any eczema, hives, rash EXAM <AVI Barfield - Last Filed: 10/06/21 18:40> Physical Exam Narrative Exam Narrative: Vital signs reviewed. Patient is 94% on 3 L nasal cannula. HEET: Head normocephalic atraumatic, TMs clear bilaterally. Posterior pharynx is clear, moist mucous membranes. Nares clear bilaterally. Neck: Supple with no lymphadenopathy or tenderness. No signs of meningismus, negative jolt sign. Cardiac: Regular rate and rhythm no murmurs gallops or rubs, equal peripheral pulses bilaterally. Respiratory: Patient has crackles to the right and left upper lobes, diminished lung sounds in the bases. No chest tenderness. Abdomen: Soft, nontender, nondistended. No abdominal bruit or pulsatile masses. No hepatosplenomegaly Extremities: No peripheral edema, no signs of gross trauma or deformity. Active full range of motion of all extremities. Neuro: Cranial nerves II through XII intact, no focal neurological deficits. Skin: Clean dry and intact with no rash, purpura, petechiae, vesicles or pustules. Backslash flank: No CVA tenderness, no midline spinal tenderness, no deformity. Psych: Normal mood and affect. No SI, HI or acute psychosis. Const Vital Signs: 10/06/21 14:45 10/06/21 14:57 10/06/21 17:45 Temperature 98.4 F 98.4 F 98.2 F Temperature Source Oral Oral Oral Pulse Rate 93 93 76 Respiratory Rate 22 H 22 H 16 Respiratory Effort Short of Breath Respiratory Depth Normal Respiratory Pattern Normal Blood Pressure 159/75 H 159/75 H 108/69 Blood Pressure Mean 103 103 82 Pulse Ox 90 90 99 Oxygen Delivery Method Nasal Cannula Nasal Cannula Room Air Oxygen Flow Rate (L/min) 2 2 10/06/21 17:49 Temperature 98.2 F Temperature Source Oral Pulse Rate 76 Respiratory Rate 16 Respiratory Effort Respiratory Depth Respiratory Pattern Blood Pressure 108/69 Blood Pressure Mean 82 Pulse Ox 99 Oxygen Delivery Method Nasal Cannula Oxygen Flow Rate (L/min) 2 Positive well nourished and well developed General Appearance ED: well developed <Dr. Levar Miller MD - Last Filed: 10/06/21 19:10> Physical Exam Const Vital Signs: 10/06/21 14:45 10/06/21 14:57 10/06/21 17:45 Temperature 98.4 F 98.4 F 98.2 F Temperature Source Oral Oral Oral Pulse Rate 93 93 76 Respiratory Rate 22 H 22 H 16 Respiratory Effort Short of Breath Respiratory Depth Normal Respiratory Pattern Normal Blood Pressure 159/75 H 159/75 H 108/69 Blood Pressure Mean 103 103 82 Pulse Ox 90 90 99 Oxygen Delivery Method Nasal Cannula Nasal Cannula Room Air Oxygen Flow Rate (L/min) 2 2 10/06/21 17:49 Temperature 98.2 F Temperature Source Oral Pulse Rate 76 Respiratory Rate 16 Respiratory Effort Respiratory Depth Respiratory Pattern Blood Pressure 108/69 Blood Pressure Mean 82 Pulse Ox 99 Oxygen Delivery Method Nasal Cannula Oxygen Flow Rate (L/min) 2 [facility] <Alex Morris NP-C - Last Filed: 10/06/21 18:40> [facility] Narrative Medical decision making narrative: Patient appears to be in mild distress secondary lethargy, feeling of shortness of breath however vital signs are stable on 4 L nasal cannula. Patient presents the emergency department with continued COVID, fever, chills since September 22. Patient did receive a full work-up, patient CBC was unremarkable, patient's chemistries were unremarkable, patient's procalcitonin was elevated 0.44. Patient who has been on oxygen since 4 days ago, was ambulated around the department, she did drop to 92% on 4 L, she originally was only on 2. Patient's chest x-ray shows continued infiltrates. Due to the elevated procalcitonin, consistent infiltrates, consistent fever and chills, patient was started on Levaquin IV. I did speak with the hospitalist about admitting the patient, we did discuss the fact that the patient might need to go to a group home for rehab, patient was given Decadron here. Patient has already finished a Decadron, azithromycin course in early September. Patient did receive a D-dimer which was elevated 2.99, this requires a CTA of the chest. Patient will be admitted to the hospital for bilateral pneumonia. Lab Data Attestation: I reviewed the patient's lab results. Labs: Laboratory Results - last 24 hr 10/06/21 10/06/21 10/06/21 15:15 15:15 15:15 WBC 8.3 RBC 4.74 Hgb 14.6 Hct 43.9 MCV 92.6 MCH 30.8 MCHC 33.3 RDW Std Deviation 48.2 H RDW Coeff of Anthony 14.1 Plt Count 301 MPV 8.6 Immature Gran % (Auto) 1.100 H Neut % (Auto) 81.9 H Lymph % (Auto) 13.3 L Sawyer % (Auto) 3.6 Eos % (Auto) 0.0 Baso % (Auto) 0.1 Absolute Neuts (auto) 6.8 Absolute Lymphs (auto) 1.11 Nucleated RBC % 0 D-Dimer Quant (PE/DVT) Sodium 141 Potassium 3.4 L Chloride 109 H Carbon Dioxide 26.0 Anion Gap 6 BUN 12 Creatinine 0.77 Estim Creat Clear Calc 34.38 Est GFR (MDRD) Af Amer 93 Est GFR (MDRD) Non-Af 77 BUN/Creatinine Ratio 15.5 Glucose 121 H Calcium 9.0 Procalcitonin 0.44 H 10/06/21 15:15 WBC RBC Hgb Hct MCV MCH MCHC RDW Std Deviation RDW Coeff of Anthony Plt Count MPV Immature Gran % (Auto) Neut % (Auto) Lymph % (Auto) Sawyer % (Auto) Eos % (Auto) Baso % (Auto) Absolute Neuts (auto) Absolute Lymphs (auto) Nucleated RBC % D-Dimer Quant (PE/DVT) 2.99 H* Sodium Potassium Chloride Carbon Dioxide Anion Gap BUN Creatinine Estim Creat Clear Calc Est GFR (MDRD) Af Amer Est GFR (MDRD) Non-Af BUN/Creatinine Ratio Glucose Calcium Procalcitonin Radiography Diagnostic Testing: Clinical Impression(s) from Imaging Studies Chest X-Ray 10/06/21 15:22 IMPRESSION: Persistent bilateral pulmonary infiltrates. Further follow-up recommended. Electronically Signed: Fernando Mo MD at 15:36 EDT , <Dr. Levar Miller MD - Last Filed: 10/06/21 19:10> [facility] Narrative Medical decision making narrative: I have personally performed a face to face assessment of the patient and have reviewed the BRENDAN Note. I performed a substantive portion of the visit including all aspects of the following. My tarango findings include: History is is remarkable for COVID-19 infection. Symptoms started on September 19. Test was September 21. She was recently seen and discharged home on oxygen. She presents because she cannot walk across the room becomes dyspneic with labored breathing and rapid heart rate and feels as if she is going to collapse. She has had persistent fevers documented to as high as 103.0 ?F. She denies vomiting or diarrhea. She did denies dysuria or hematuria. She does report increased urination. She denies rash. She complains of aches. She complains of intermittent headache. She denies visual, ocular auditory symptoms. She denies swelling of any of your joints. Exam is remarkable for patient appearing ill. At rest she is not hypoxic. She is not tachycardic at rest either. H EENT exam is unremarkable. Trachea is midline. There is no inspiratory stridor. Heart is regular without murmur, gallop or rub. Lungs reveal by lateral lower lobe rales. There is questionable egophony on the right. There is increased vocal fremitus bilaterally. Abdomen is soft nontender. Is no palp pulsatile mass or abdominal bruit. There is no CVA tenderness noted. There is no rash noted. Neuro exam is nonfocal. Medical Decision Making with persistent rales and greater than 2 weeks since onset need to consider bacterial infection. This could be long COVID as well. Work-up included chest x-ray, blood work and ambulatory pulse ox. The chest x-ray was independently reviewed and interpreted by me as positive for bilateral interstitial infiltrates that were noted on prior. There may be slight improvement. Other additions or changes: [None] Lab Data Labs: Laboratory Results - last 24 hr 10/06/21 10/06/21 10/06/21 15:15 15:15 15:15 WBC 8.3 RBC 4.74 Hgb 14.6 Hct 43.9 MCV 92.6 MCH 30.8 MCHC 33.3 RDW Std Deviation 48.2 H RDW Coeff of Anthony 14.1 Plt Count 301 MPV 8.6 Immature Gran % (Auto) 1.100 H Neut % (Auto) 81.9 H Lymph % (Auto) 13.3 L Sawyer % (Auto) 3.6 Eos % (Auto) 0.0 Baso % (Auto) 0.1 Absolute Neuts (auto) 6.8 Absolute Lymphs (auto) 1.11 Nucleated RBC % 0 D-Dimer Quant (PE/DVT) Sodium 141 Potassium 3.4 L Chloride 109 H Carbon Dioxide 26.0 Anion Gap 6 BUN 12 Creatinine 0.77 Estim Creat Clear Calc 34.38 Est GFR (MDRD) Af Amer 93 Est GFR (MDRD) Non-Af 77 BUN/Creatinine Ratio 15.5 Glucose 121 H Calcium 9.0 Procalcitonin 0.44 H 10/06/21 15:15 WBC RBC Hgb Hct MCV MCH MCHC RDW Std Deviation RDW Coeff of Anthony Plt Count MPV Immature Gran % (Auto) Neut % (Auto) Lymph % (Auto) Sawyer % (Auto) Eos % (Auto) Baso % (Auto) Absolute Neuts (auto) Absolute Lymphs (auto) Nucleated RBC % D-Dimer Quant (PE/DVT) 2.99 H* Sodium Potassium Chloride Carbon Dioxide Anion Gap BUN Creatinine Estim Creat Clear Calc Est GFR (MDRD) Af Amer Est GFR (MDRD) Non-Af BUN/Creatinine Ratio Glucose Calcium Procalcitonin Radiography Chest X-Ray - ED: 1 View and Read by ED Physician (View chest x-ray reveals bilateral interstitial peripheral infiltrates that were noted on prior. X-ray was interpreted by me at 1531. Cardiac silhouette and size normal. Mediastinum unremarkable. Osseous structures are unremarkable.) Diagnostic Testing: Clinical Impression(s) from Imaging Studies Chest X-Ray 10/06/21 15:22 IMPRESSION: Persistent bilateral pulmonary infiltrates. Further follow-up recommended. Electronically Signed: Fernando Mo MD at 15:36 EDT Reading Location ID and State: [facility] / [place] , Service support , Discharge Plan Dx/Rx/DC Orders Clinical Impression: Bilateral pneumonia, Acute on chronic respiratory failure with hypoxia Disposition Disposition: Acute Care Hospital [facility] Discharge Date/Time: 10/06/21 19:03
--- NOTE | 2021-10-06 15:22 | RAD_ITS ---
STUDY: X-RAY CHEST REASON FOR EXAM: Female, 76 years old. Shortness of breath TECHNIQUE: Single AP portable view of the chest. COMPARISON: Comparison is made with prior study dated 10/03/2021. FINDINGS: EKG electrodes are seen. Persistent bilateral mild increased markings in the upper lobes slightly worse on the left side. Further follow-up is recommended. There is no demonstrated pleural abnormality. Normal size heart. Normal mediastinum and gertrudis. Normal visualized pulmonary arteries. Normal visualized aortic arch and descending thoracic aorta. Normal visualized thoracic spine. Normal visualized ribs, clavicles, and shoulders. There is no demonstrated abnormality of the visualized soft tissue structures of the upper abdomen. RAD/Chest 1 View (Portable) IMPRESSION: Persistent bilateral pulmonary infiltrates. Further follow-up recommended. Electronically Signed: Fernando Mo MD at 15:36 EDT ,
[2021-10-06] MEDS: dexAMETHasone 4 MG Tablet 6 MG PO (15:24)
[2021-10-06] MEDS: 0.9% Normal Saline 1,000 ML 1000 ML IV (15:24)
[2021-10-06 15:25] LABS: Absolute Lymphocyte Count 1.11 X10^3/uL (0.83-4.51); Absolute Neutrophil Count 6.8 X10^3/uL (2.0-7.7); Basophil# 0.01 X10^3/uL; Basophil% 0.1 % (0-1); Hematocrit 43.9 % (37-47); Hemoglobin 14.6 g/dL (12.0-15.0); Lymphocyte # 1.11 X10^3/ul (0.83-4.51); Lymphocyte % 13.3 % (19-41); Mean Corp Hgb Conc 33.3 g/dL (32-36); Mean Corpuscular Hgb 30.8 pg (27.0-32.0); Mean Corpuscular Volume 92.6 fL (81-99); Mean Platelet Vol. 8.6 fl (6.2-12.0); Monocyte% 3.6 % (0-10); NRBC Flagged by Analyzer 0 % (0-5); Neutrophil # 6.82 X10^3/uL (2.7-7.7); Neutrophil % 81.9 % (47-70); Platelet Count 301 K/mm3 (150-450); RBC Distribution Width CV 14.1 % (11.6-14.6); RBC Distribution Width SD 48.2 fl (35.1-43.9); Red Blood Count 4.74 M/mm3 (4.2-5.4); White Blood Count 8.3 K/mm3 (4.4-11.0)
[2021-10-06 15:38] LABS: Anion Gap 6 (5-15); BUN 12 mg/dL (7-18); BUN/Creat Ratio 15.5 RATIO (10-20); Chloride 109 mmol/L (98-107); Creatinine, Serum 0.77 mg/dL (0.55-1.02); EST Glomerular Filtration Rate 77 mL/min (>60); Est Glom Filt Rate - Afr Amer 93 mL/min (>60); Estimated Creatinine Clearance 34.38 ml/min; Glucose 121 mg/dL (74-106); Potassium 3.4 mmol/L (3.5-5.1); Sodium Level 141 mmol/L (136-145)
[2021-10-06 16:02] LABS: Procalcitonin 0.44 ng/mL (0.00-0.09)
--- NOTE | 2021-10-06 16:18 | ED.RN ---
PT UP TO AMB TO [facility] THEN TO AMB IN [facility]. O2 TANK FROM HOME USED ON 2L. AT START WAS 95% ON 2.5L THEN ONLY DROPPED TO 92 WITH HR STAYING IN THE 70'S WHEN UP. INCREASED SOB NOTED AND REPORTED AND PT REMAINED STEADY WITH SBA. UPON RETURN WHILE SAT ON EDGE OF BED WENT TO 88% BUT FOR LESS THAN 30SEC NEEDED TO RECOVER .
[2021-10-06] MEDS: levoFLOXacin IV 750 MG/150 ML BAG 100 MG IV (16:36)
[2021-10-06 17:46] LABS: D-Dimer Quantitative (DVT/PE) 2.99 FEU/ug/m (0.27-0.49)
--- NOTE | 2021-10-06 17:55 | HP.PCM.HOS_ITS ---
HPI - General HPI Narrative ROSALES BRAUN, is a 76 F who presents to the hospital with increasing oxygen requirements and weakness and fatigue. She started coming down with shortness of breath on the or 20 September and on 22 September she tested positive for Covid. She has been vaccinated and boosted however she does take Rituxan for rheumatoid arthritis. On the she was in the hospital secondary to shortness of breath, at that time a CT of the chest was negative for PEs but did show typical Covid findings. At that time she was also found to be hypoxic so she was started on oxygen and discharged home. At that time she was not started on any Decadron. She presents now with increased weakness and fatigue and whenever she gets up and ambulates on her 2 L of oxygen at home she was dropping down into the 84 to 87% oxygen range on her pulse oximetry. Here in the ER repeat D-dimer was elevated 2.99 so CTA is currently pending. [facility] Medical History (Updated 10/06/21 @ 18:[address] Isai Caruso MD) History of concussion History of hepatitis A History of malaria History of rheumatic fever as a child Hyperlipidemia Rheumatoid arthritis Home Medications Fish Oil 1 ea PO BID 08/05/13 [History Last Taken Unknown] cholecalciferol (vitamin D3) [Vitamin D3] 2,000 unit PO DAILY 08/05/13 [History Last Taken Unknown] imipramine HCl [Tofranil] 10 mg PO QHS 08/05/13 [History Last Taken 10/05/21] pantoprazole 40 mg PO DAILY 08/05/13 [History Last Taken 10/06/21] calcium carbonate [Caltrate-600] 1,200 mg PO BIDCM 03/07/14 [History Last Taken Unknown] Rotuxin IV .[id number] 01/21/16 [History Last Taken 07/21/21] atorvastatin 5 mg PO QHS 01/21/16 [History Last Taken 10/05/21] biotin 5,000 mcg PO DAILY 05/07/17 [History Last Taken Unknown] zinc 50 mg PO DAILY 05/07/17 [History Last Taken Unknown] ferrous sulfate [iron] 325 mg PO DAILY 10/03/21 [History Last Taken Unknown] latanoprost 1 drp EACH EYE DAILY 10/03/21 [History Last Taken 10/05/21] ipratropium bromide [Atrovent] 2 spray INTRANASAL BID 10/06/21 [History Last Taken 10/05/21] Allergy/AdvReac Type Severity Reaction Status Date / Time tramadol Allergy Mild NAUSEA, Verified 10/06/21 14:49 VOMIT acetaminophen [From Tylenol] AdvReac Intermediate LIVER ENZ Verified 10/06/21 14:49 UP ibuprofen AdvReac Intermediate LIVER ENZ Verified 10/06/21 14:49 UP CORTISONE EYE DROPS AdvReac Other Uncoded 10/06/21 14:49 Family History (Updated 10/06/21 @ 18:[address] Isia Caruso MD) Other Cancer Heart disease Surgical History (Updated 10/06/21 @ 18:[address] Isai Caruso MD) Status post spigelian hernia repair, follow-up exam Social History Smoking Status: Never smoker ROS Constitutional Constitutional: Reports fatigue and fever(s); Denies chills or malaise Eyes Eyes: Denies blurry vision ENT HEENT: Denies headache(s) or nasal discharge Cardiovascular Cardiovascular: Denies chest pain, dyspnea on exertion or syncope Respiratory/Chest Respiratory/Chest: Reports cough, shortness of breath at rest and shortness of breath with exertion Gastrointestinal Gastrointestinal: Denies constipation, diarrhea, nausea or vomiting Genitourinary Genitourinary: Denies dysuria Neurologic Neurologic: Denies focal weakness, numbness or tremor(s) Psychiatric Psychiatric: Denies anxiety or depression Vital Signs Vital Signs Vital Signs: 10/06/21 14:45 10/06/21 14:57 10/06/21 17:45 Temperature 98.4 F 98.4 F 98.2 F Temperature Source Oral Oral Oral Pulse Rate 93 93 76 Respiratory Rate 22 H 22 H 16 Respiratory Effort Short of Breath Respiratory Depth Normal Respiratory Pattern Normal Blood Pressure 159/75 H 159/75 H 108/69 Blood Pressure Mean 103 103 82 Pulse Ox 90 90 99 Oxygen Delivery Method Nasal Cannula Nasal Cannula Room Air Oxygen Flow Rate (L/min) 2 2 10/06/21 17:49 Temperature 98.2 F Temperature Source Oral Pulse Rate 76 Respiratory Rate 16 Respiratory Effort Respiratory Depth Respiratory Pattern Blood Pressure 108/69 Blood Pressure Mean 82 Pulse Ox 99 Oxygen Delivery Method Nasal Cannula Oxygen Flow Rate (L/min) 2 Weight Weight: 139 lb Body Mass Index (BMI) 27.1 Physical Exam Const alert and oriented x3 General Appearance: cooperative HEENT normocephalic and moist oral mucous membranes Eyes PERRL, EOMs intact bilaterally and conjunctivae normal Neck supple and no JVD Resp normal respiratory effort, no retractions and no use of accessory muscles Auscultation: crackles bilateral; Negative for rales, rhonchi or wheezes Cardio regular rate, regular rhythm, S1 normal heart sound, S2 normal heart sound and no murmurs GI soft to palpation, non-tender and non-distended; Negative for hepatosplenomegaly Extremity no clubbing, cyanosis or edema Skin no rashes or lesions noted Neuro no focal motor deficits and no sensory deficits noted Psych affect normal Appearance: appropriate Results Lab / Micro Data Result Diagrams: 10/06/21 15:15 10/06/21 15:15 Labs: Laboratory Results - last 24 hr 10/06/21 15:15: WBC 8.3, RBC 4.74, Hgb 14.6, Hct 43.9, MCV 92.6, MCH 30.8, MCHC 33.3, RDW Std Deviation 48.2 H, RDW Coeff of Anthony 14.1, Plt Count 301, MPV 8.6, Immature Gran % (Auto) 1.100 H, Neut % (Auto) 81.9 H, Lymph % (Auto) 13.3 L, [place] % (Auto) 3.6, Eos % (Auto) 0.0, Baso % (Auto) 0.1, Absolute Neuts (auto) 6.8, Absolute Lymphs (auto) 1.11, Nucleated RBC % 0 10/06/21 15:15: Sodium 141, Potassium 3.4 L, Chloride 109 H, Carbon Dioxide 26.0, Anion Gap 6, BUN 12, Creatinine 0.77, Estim Creat Clear Calc 34.38, Est GFR (MDRD) Af Amer 93, Est GFR (MDRD) Non-Af 77, BUN/Creatinine Ratio 15.5, Glucose 121 H, Calcium 9.0 10/06/21 15:15: Procalcitonin 0.44 H 10/06/21 15:15: D-Dimer Quant (PE/DVT) 2.99 H* Radiology Impression Chest X-Ray 10/06/21 15:22 IMPRESSION: Persistent bilateral pulmonary infiltrates. Further follow-up recommended. Electronically Signed: Fernando Mo MD at 15:36 EDT , Assessment & Plan Assessment/Plan (1) Acute respiratory failure with hypoxia: (2) COVID-19: PLAN: 1. Acute hypoxic respiratory failure secondary to COVID-19 pneumonia ?Tested positive on 22 September and symptoms started 2 to 3 days prior to the positive test, she is outside of the window for isolation and remdesivir ?Continue with p.o. Decadron for 10 days, she did receive her first dose today ?Given her fevers and crackles on exam we will also start her on empiric Levaquin and obtain a sputum culture ?She did receive a CTA on 10/03/21 and she is getting another CTA of her chest today secondary to elevated D-dimer so hold off on any Lasix at this time ?PT/OT for evaluation, she is okay with SNF placement if necessary ?She is fully vaccinated and boosted ?Given how high her D-dimer is we will also put her on twice daily Lovenox dosing 2. HLD ?Blood pressure stable ?Continue with home Lipitor 3. GERD ?Stable ?Continue with PPI 4. RFA ?Stable ?She is on Rituxan every 6 months DVT: Lovenox Charges/Coding Visit Charges Inpatient E&M: 96168 Init Hosp L3
--- NOTE | 2021-10-06 19:18 | ED.RN ---
PT HAD ALREADY BEEN ADMITTED WITH SPOUSE BROUGHT C-PAP BACK. SCREENER EXPLAINED THAT VISITING HOURS WERE OVER. PT INSISTED ON TAKING CPAP TO PT. THIS RN ATTEMPTED TO EXPLAIN THAT WE ARE NOT TRYING TO BE DIFFICULT BUT THOSE ARE THE RULES AND WE DO TRY TO FOLLOW THEM. THE PTS SPOUSE STATED IM SURE YOU HAVE NO PROBLEM BREAKING THE RULES. THIS RN SAID EXCUSE ME, SPOUSE STATED I SAID I'M SURE YOU HAVE NO PROBLEM BREAKING THE RULES. AT THAT POINT SECURITY WAS WALKING THROUGH, (THIS RN DID NOT CALL SECURITY HE WAS JUST WALKING THROUGH). SPOUSE UPON SEEING SECURITY STATED THAT HE WAS JUST TRYING TO MAKE A JOKE, THIS RN APOLOGIZED STATED THAT THIS HAS BEEN A DIFFICULT WEEK AND DID NOT REALIZE THAT HE WAS JOKING.
[2021-10-06] MEDS: Enoxaparin 40 MG/0.4 ML Syringe SC (21:21)
[2021-10-06] MEDS: Atorvastatin Calcium 10 MG Tablet 5 MG PO (21:21)
[2021-10-06] MEDS: Latanoprost 0.005% 1 Bottle 1 DRP EACH EYE (21:24)
[2021-10-07] VITALS (9 sets, daily range): BP systolic 117–145; BP diastolic 64–86; PULSE 84–103; RESP 18–20; TEMP 37.2–37.7; O2SAT 2–97
--- NOTE | 2021-10-07 03:30 | NURSING ---
pt states that she has been taking tylenol regardless of the adverse reaction listed on allergy summary at home
[2021-10-07] MEDS: Acetaminophen 325 MG Tablet 650 MG PO (03:36)
[2021-10-07 06:37] LABS: Absolute Lymphocyte Count 1.23 X10^3/uL (0.83-4.51); Basophil# 0.01 X10^3/uL; Basophil% 0.1 % (0-1); Hematocrit 36.7 % (37-47); Hemoglobin 12.5 g/dL (12.0-15.0); Lymphocyte # 1.23 X10^3/ul (0.83-4.51); Lymphocyte % 16.1 % (19-41); Mean Corp Hgb Conc 34.1 g/dL (32-36); Mean Corpuscular Hgb 30.6 pg (27.0-32.0); Mean Platelet Vol. 8.5 fl (6.2-12.0); Monocyte# 0.38 X10^3/uL; NRBC Flagged by Analyzer 0 % (0-5); Neutrophil # 5.97 X10^3/uL (2.7-7.7); Platelet Count 262 K/mm3 (150-450); RBC Distribution Width CV 14.2 % (11.6-14.6); RBC Distribution Width SD 47.3 fl (35.1-43.9); Red Blood Count 4.08 M/mm3 (4.2-5.4); White Blood Count 7.7 K/mm3 (4.4-11.0)
[2021-10-07 07:03] LABS: Anion Gap 7 (5-15); BUN 10 mg/dL (7-18); BUN/Creat Ratio 16.1 RATIO (10-20); Chloride 110 mmol/L (98-107); Creatinine, Serum 0.62 mg/dL (0.55-1.02); EST Glomerular Filtration Rate 99 mL/min (>60); Est Glom Filt Rate - Afr Amer 120 mL/min (>60); Estimated Creatinine Clearance 34.38 ml/min; Glucose 104 mg/dL (74-106); Potassium 3.6 mmol/L (3.5-5.1); Sodium Level 140 mmol/L (136-145)
[2021-10-07] MEDS: Enoxaparin 40 MG/0.4 ML Syringe SC ×2 (09:04→21:38)
[2021-10-07] MEDS: Pantoprazole Sodium 40 MG Tablet PO (09:05)
[2021-10-07] MEDS: dexAMETHasone 4 MG Tablet 6 MG PO (09:05)
--- NOTE | 2021-10-07 12:07 | CHAPLAIN ---
Type of Pastoral Visit _x__ Initial Visit ___ Follow-up Visit ___ On-call Visit ___ General Patient Visit ___ Spiritual Assessment ___ Family Conference ___ Bereavement ___ Rapid Response ___ Code Blue ___ Other (describe below) Pastoral Care Referral From _x__ Patient ___ Family ___ Nurse ___ Physician ___ Printed Circuit Board Reworker ___ Certified Caregiver ___ Other (describe below) Sacrament/Intervention _x__ Active listening ___ Anointing ___ Restorationist ___ Bereavement ___ Communion ___ Gavi exploration ___ ___ Life review _x__ Prayer ___ Reconciliation ___ Sacrament of Sick _x__ Supportive presence ___ Wedding ___ Other (describe below) Pastoral Comments patient identifies as believer and welcomes spiritual care support; gave presence and prayer; pt given opportunity to talk briefly; noticed how pt was weak so let pt rest
--- NOTE | 2021-10-07 13:45 | CASEMGMT ---
Addendum entered by Anabel Ma 10/07/21 16:05: Walker from [employer] has been delivered to pt's room. Original Note: SELENA PEGUERO NOTE: PT/OT evals have been reviewed. Pt ambulated 200 ft w/CGA. SELENA CM to room to talk w/pt. Pt states she wishes to return home and would like WW. Pt given list of local DME companies, has no preference, and okay w/[employer]. Pt states is also interested in RTS. She was made aware this is not covered by insurance and made aware of local companies that sell these or on-line/[employer]. She voices understanding. Script for FWW obtained from Dr Joaquin and faxed to [employer]. Per Dr Joaquin, pt will stay overnight for further pain mgmt and anticipates d/c home tomorrow. Pt states her friend can take her home tomorrow, but will not be available until 5 PM. SELENA PEGUERO informed this is okay. Pt denies need for HHC and no needs identified. Pt aware to ask for CM if any further home-going/discharge needs arise. Ila FARRN SELENA PEGUERO
--- NOTE | 2021-10-07 16:07 | CASEMGMT ---
Addendum entered by Anabel Ma 10/07/21 16:21: Portable O2 tank is not @ [facility], but pt states her would be able to bring in @ d/c. Pt will need home amb pulse ox testing done, starting w/2 l/m O2 (pt's baseline). If pt requires more than 2l/m O2 @ rest or w/exertion, new O2 script will need faxed to [facility] [place]. Green sheet placed on chart w/instructions for HHC and O2. Original Note: RN CM SUMMER ANALYST CM to room to meet with patient for initial transition planning/care coordination assessment. RN MARIELENA introduced self and role at [facility]. Pt voices understanding and consents to assessment at this time. Pt sitting up in chair in no distress at this time. Pt is A/O at this time and answers all questions appropriately. Care providers, pharmacy, and demographics verified/updated at this time. PCP: Dr Cruz Specialists: [facility] in [place] for RA Preferred Pharmacy: [facility] Insurance: [facility], MMO Prescription Benefit: Yes, [employer] Living Will/HPOA: Does not have LW or HPOA. Has paperwork @ home but they have not been completed. Denies wishing to talk w/SW to complete while @ [facility]. Aware can call SW as an OP, if so desires at a later time. Has Support Assistant Rac card w/contact info. LNOK: [place] Living Arrangements: Lives w/ in one-story home w/2 steps to enter. Was independent w/ADL's and IADL's prior to getting COVID @ end of August. Has been having weakness since then. able to assist. Transportation: Pt and . DME: States has the following DME: O2 @ 2l/m continuous through [employer] and bleeds into CPAP @ [facility]. CPAP from [facility]. Has grab bars in shower and has pulse ox. Has/but does not use: cane, walker, rollator. Pt states no need for further DME at this time. HHC/SNF: No hx of either. Pt states would like HHC. Pt was provided with list of HHC providers including quality and resource use data and consistent with the patient's preferred geographic region, medical needs, and insurance network. The pt's preferred provider is [facility]. Pt states would like an aide also. Made aware aides come in 2-3 x's/week for bathing and dressing only--they do not stay for household tasks, meals, etc. Pt voices understanding. Call placed to Aditi @ [facility] and referral made. Made aware anticipate discharge Sat or Sun. They are able to accept pt. Pt made aware. SOC slated for 10/10. Pt wishes to return home and states has no concerns with going home at time of discharge. CM to follow for home oxygen needs and any further discharge planning/needs. Pt voices no further concerns/needs at this time. Advised pt to ask for CM if any further questions/concerns/needs arise. Voices understanding. [facility], PT/OT, and aide. Ila GARCÍA RN CM
[2021-10-07] MEDS: Atorvastatin Calcium 10 MG Tablet 5 MG PO (21:37)
[2021-10-07] MEDS: Latanoprost 0.005% 1 Bottle 1 DRP EACH EYE (21:38)
[2021-10-08] VITALS (10 sets, daily range): BP systolic 114–144; BP diastolic 57–74; PULSE 74–104; RESP 18–20; TEMP 36.6–38.9; O2SAT 88–98
[2021-10-08] MEDS: Enoxaparin 40 MG/0.4 ML Syringe SC ×2 (09:08→21:39)
[2021-10-08] MEDS: dexAMETHasone 4 MG Tablet 6 MG PO (09:09)
[2021-10-08] MEDS: Pantoprazole Sodium 40 MG Tablet PO (09:10)
[2021-10-08] MEDS: 0.9% Saline Lock 10 ML Syringe IV ×2 (09:18→11:48)
[2021-10-08] MEDS: levoFLOXacin IV 750 MG/150 ML BAG 100 MG IV (11:48)
[2021-10-08] MEDS: Acetaminophen 325 MG Tablet 650 MG PO ×2 (11:53→17:59)
--- NOTE | 2021-10-08 12:08 | PCM.PN.HOSP ---
Subjective Subjective Patient states that she is overall feeling better today however she is still fairly fatigued and low on energy. No fevers overnight however after I saw her this morning she developed a temperature of 102. Objective Data Objective Data Vital Signs: Vital Signs Temp Pulse Resp BP Pulse Ox 102.0 F H 104 H 20 H 135/72 H 94 10/08/21 11:30 10/08/21 11:30 10/08/21 11:30 10/08/21 11:30 10/08/21 11:30 Oxygen Flow Rate (L/min) [ 2 AMBULATING with Oxygen #1] Oxygen Flow Rate (L/min) [At 92 REST with Oxygen] Oxygen Flow Rate (L/min) 2 Oxygen Delivery Method Nasal Cannula Weight: 64.1 kg Body Mass Index (BMI) 27.6 Intake & Output: Intake and Output for Last 24 Hours 10/06/21 10/07/21 10/08/21 23:59 23:59 23:59 Intake Total 1150 / 1150 220 / 220 250 / 250 Output Total 300 / 300 300 / 300 Balance 1150 / 1150 -80 / -80 -50 / -50 Medical Nutrition Assessment Dietitian: Malnutrition Criteria Met Start: 10/07/21 15:25 Freq: Status: Active Protocol: Document 10/07/21 15:25 RMA (Rec: 10/07/21 15:31 RMA [id number]) Nutrition Malnutrition Evidence of Malnutrition Exists Yes Malnutrition (severe): Acute Illness/Injury Evidenced By Suboptimal Energy Intake ( Severe),Weight Loss (Severe) Clinical Problem Acute Disease or Injury Related Malnutrition Etiology Severe protein-calorie malnutrition in the context of acute illness related to inadequate oral intake Signs/Symptoms as evidenced by unintentional weight loss ~4% decrease x past 2 weeks, ongoing poor appetite and inadequate oral intake meeting less than 50% estimated nutrition needs x 2 weeks prior to admission Status Active Problem Recommendation Dietitian Recommendations/Changes Will continue liberalized regular diet; strongly encouraged improved PO as able at meals especially since patient is refusing all oral nutrition supplements. Will d/c ensure compact with medpass due to patient refusal . Will monitor PO and weight closely. Suggest considering a possible appetite stimulant in light of refusing all PO nutrition supplements. Lab / Micro Data Result Diagrams: 10/07/21 06:20 10/07/21 06:20 Micro: Microbiology 10/08/21 06:43 Urine, Clean Catch Legionella Antigen - Final 10/08/21 06:43 Urine, Clean Catch Streptococcus pneumoniae Antigen (M - Final Physical Exam Const alert, oriented x3 and no apparent distress Constitutional Narrative: Older white female sitting up in a chair at the bedside, remains on supplemental oxygen, appears less tired today however energy still appears to be limited, nontoxic, very pleasant General Appearance: cooperative HEENT normocephalic, head/scalp atraumatic and moist oral mucous membranes HEENT Narrative: Mallampati 2, no thrush Head and Scalp: normocephalic Resp normal respiratory effort, no retractions, no use of accessory muscles and clear to auscultation bilaterally Resp Narrative: No crackles noted on exam today and lungs were clear bilaterally Auscultation: Negative for crackles, rales, rhonchi or wheezes Cardio regular rate, regular rhythm, S1 normal heart sound, S2 normal heart sound, no murmurs, no rub, no gallops, no clicks and no JVD GI normal to inspection, nondistended, normoactive bowel sounds, soft to palpation, non-tender and non-distended; Negative for hepatosplenomegaly Extremity no clubbing, cyanosis or edema Peripheral Pulses: Yes pulses 2+ throughout Neuro oriented x3, moves all extremities and no focal motor deficits Sensorium / Orientation: awake and alert Speech: speech normal Psych affect normal Appearance: appropriate Assessment & Plan Assessment/Plan (1) Acute respiratory failure with hypoxia: (2) COVID-19: PLAN: Acute hypoxic respiratory failure secondary to COVID-19 pneumonia/? Superimposed bacterial pneumonia -Symptoms started on September 19, 2021 -Positive tests September 22, 2021 -Currently out of the window for needing isolation -Patient is fully vaccinated and boosted however is on Rituxan for rheumatoid arthritis and therefore is immunosuppressed -CT on 10/03/2021 - for PE however did show mild typical Covid findings -Patient remains on 2 L of nasal cannula at this time -Strep pneumo and Legionella antigens negative -Decadron day 3 of -Patient was out of the window for remdesivir -SpO2 on 2 L is 94 to 98% and wean oxygen as able -Continue incentive spirometer/Acapella -Encourage out of bed and mobility D-dimer elevation -Patient had negative CTA of her chest on 10/03/2021 -Low suspicion for PE even with representation -Patient did have increasing shortness of breath with a CT that was performed on the secondary to the contrast -Continue to monitor clinically -Continue Lovenox 30 mg subcu twice daily Mild transaminitis -Suspect related to viral illness -Will reassess tomorrow -She does have history of acute hep a remotely Fevers -I would anticipate her to have ongoing fevers as high as she has been this far out from her initial Covid diagnosis -Blood cultures are negative at 48 hours -Urine culture is negative and UA was unimpressive -Patient has been unable to produce a sputum however has been covered with empiric antibiotics -Continue empiric Levaquin -We will check for influenza she could have concomitant influenza -No white count elevation -Check a.m. procalcitonin -As needed Tylenol Hyperlipidemia -Continue home atorvastatin GERD -Continue Protonix Rheumatoid arthritis -Patient on Rituxan every 6 months -Refer for outpatient follow-up after discharge DVT prophylaxis -SCDs -Lovenox 30 mg subcu twice daily CODE STATUS -Full code Charges/Coding Visit Charges Inpatient E&M: 29940 Subs Hosp L2
[2021-10-08] MEDS: Furosemide 40 MG/4 ML Vial IV (13:42)
[2021-10-08] MEDS: Vancomycin IV 1,000 MG/200 ML BAG 200 MG IV (13:43)
--- NOTE | 2021-10-08 15:41 | PCM.RX.CS ---
Consult Pharmacy has been consulted to manage selected antiobiotic: Vancomycin Type of Consult: New start Suspected Infection: Pneumonia, Other Labs: Sodium 140 mmol/L (136-145) 10/07/21 06:20 Potassium 3.6 mmol/L (3.5-5.1) 10/07/21 06:20 Chloride 110 mmol/L (98-107) H 10/07/21 06:20 Carbon Dioxide 23.0 mmol/L (21.0-32.0) 10/07/21 06:20 Anion Gap 7 (5-15) 10/07/21 06:20 BUN 10 mg/dL (7-18) 10/07/21 06:20 Creatinine 0.62 mg/dL (0.55-1.02) 10/07/21 06:20 Est GFR (MDRD) Af Amer 120 mL/min (>60) 10/07/21 06:20 Est GFR (MDRD) Non-Af 99 mL/min (>60) 10/07/21 06:20 BUN/Creatinine Ratio 16.1 RATIO (10-20) 10/07/21 06:20 Glucose 104 mg/dL (74-106) 10/07/21 06:20 Microbiology: Microbiology 10/08/21 12:20 Mucosa - Nasopharyngeal Influenza Types A,B Direct FA (IMELDA) - Final 10/08/21 06:43 Urine, Clean Catch Legionella Antigen - Final 10/08/21 06:43 Urine, Clean Catch Streptococcus pneumoniae Antigen (M - Final Goal Trough: 15-20 mcg/mL Pharmacy Plan for Drug Dosing: NEW START IV VANCOMYCIN Consulting Physician: Dr. Jessica Marx Indication: Pneumonia/ fevers Goal Trough: 15-20 SrCr: 0.62 CrCl: 34 mL/min Comments: Initial dose of vancomycin 1g IV x1 ordered and administered 10/08/21 @1343 Vancomcyin Dose: 750mg IV Q24hr to start 10/09/21 @1300 Pending Level: 10/10/21 @1230, prior to 3rd total dose per protocol Pharmacy Service will continue to monitor and adjust dosing as required.
[2021-10-08] MEDS: Atorvastatin Calcium 10 MG Tablet 5 MG PO (21:39)
[2021-10-08] MEDS: Latanoprost 0.005% 1 Bottle 1 DRP EACH EYE (21:40)
[2021-10-09] VITALS (8 sets, daily range): BP systolic 118–149; BP diastolic 54–83; PULSE 72–92; RESP 18–20; TEMP 36.4–37.2; O2SAT 89–97
[2021-10-09 06:19] LABS: Absolute Lymphocyte Count 1.12 X10^3/uL (0.83-4.51); Absolute Neutrophil Count 4.7 X10^3/uL (2.0-7.7); Basophil# 0.01 X10^3/uL; Basophil% 0.2 % (0-1); Hematocrit 40.9 % (37-47); Hemoglobin 13.7 g/dL (12.0-15.0); Lymphocyte # 1.12 X10^3/ul (0.83-4.51); Lymphocyte % 17.9 % (19-41); Mean Corp Hgb Conc 33.5 g/dL (32-36); Mean Corpuscular Hgb 30.2 pg (27.0-32.0); Mean Corpuscular Volume 90.1 fL (81-99); Mean Platelet Vol. 8.3 fl (6.2-12.0); Monocyte# 0.43 X10^3/uL; Monocyte% 6.9 % (0-10); NRBC Flagged by Analyzer 0 % (0-5); Neutrophil # 4.66 X10^3/uL (2.7-7.7); Neutrophil % 74.2 % (47-70); Platelet Count 277 K/mm3 (150-450); RBC Distribution Width CV 14.3 % (11.6-14.6); Red Blood Count 4.54 M/mm3 (4.2-5.4); White Blood Count 6.3 K/mm3 (4.4-11.0)
[2021-10-09 06:50] LABS: ALB/GLOB Ratio 0.6 RATIO (0.9-2.4); AST(SGOT) 58 U/L (15-37); Alanine Aminotransfer ALT/SGPT 60 U/L (13-56); Albumin, Serum 2.1 g/dL (3.2-5.0); Alkaline Phosphatase 92 U/L (45-117); Anion Gap 6 (5-15); BUN 18 mg/dL (7-18); BUN/Creat Ratio 23.9 RATIO (10-20); Calcium,Total 8.4 mg/dL (8.5-10.1); Chloride 108 mmol/L (98-107); Creatinine, Serum 0.75 mg/dL (0.55-1.02); EST Glomerular Filtration Rate 80 mL/min (>60); Est Glom Filt Rate - Afr Amer 96 mL/min (>60); Estimated Creatinine Clearance 34.38 ml/min; Globulin 3.7 g/dL (2.2-4.2); Glucose 104 mg/dL (74-106); Potassium 3.8 mmol/L (3.5-5.1); Protein, Total 5.8 g/dL (6.4-8.2); Sodium Level 138 mmol/L (136-145)
[2021-10-09 08:06] LABS: Procalcitonin 0.21 ng/mL (0.00-0.09)
[2021-10-09] MEDS: Pantoprazole Sodium 40 MG Tablet PO (08:37)
[2021-10-09] MEDS: dexAMETHasone 4 MG Tablet 6 MG PO (08:37)
[2021-10-09] MEDS: Enoxaparin 40 MG/0.4 ML Syringe SC ×2 (10:37→21:22)
[2021-10-09] MEDS: Furosemide 40 MG/4 ML Vial IV (10:44)
--- NOTE | 2021-10-09 11:25 | PCM.PN.HOSP ---
Subjective Subjective Afebrile overnight with last temperature being at 1240 yesterday afternoon. T-max in last 24 hours was 102. She states she still fairly fatigued. Cough seems to be better. Still requiring 2 L of oxygen however oxygen saturations are currently at 97 to 98% on 2 L and therefore I decreased her to 1 L nasal cannula. She is not on oxygen at baseline however presented to the emergency department and was placed on 2 L on 10/03/2021. Objective Data Objective Data Vital Signs: Vital Signs Temp Pulse Resp BP Pulse Ox 97.8 F 91 20 H 138/54 H 92 10/09/21 10:32 10/09/21 10:32 10/09/21 10:32 10/09/21 10:32 10/09/21 10:32 Oxygen Flow Rate (L/min) [ 2 AMBULATING with Oxygen #1] Oxygen Flow Rate (L/min) [At 92 REST with Oxygen] Oxygen Flow Rate (L/min) 1 Oxygen Delivery Method Nasal Cannula Weight: 64.1 kg Body Mass Index (BMI) 27.6 Intake & Output: Intake and Output for Last 24 Hours 10/07/21 10/08/21 10/09/21 23:59 23:59 23:59 Intake Total 220 / 220 1000 / 1000 100 / 100 Output Total 300 / 300 2150 / 2150 Balance -80 / -80 -1150 / -1150 100 / 100 Medical Nutrition Assessment Dietitian: Malnutrition Criteria Met Start: 10/07/21 15:25 Freq: Status: Active Protocol: Document 10/07/21 15:25 RMA (Rec: 10/07/21 15:31 RMA [id number]) Nutrition Malnutrition Evidence of Malnutrition Exists Yes Malnutrition (severe): Acute Illness/Injury Evidenced By Suboptimal Energy Intake ( Severe),Weight Loss (Severe) Clinical Problem Acute Disease or Injury Related Malnutrition Etiology Severe protein-calorie malnutrition in the context of acute illness related to inadequate oral intake Signs/Symptoms as evidenced by unintentional weight loss ~4% decrease x past 2 weeks, ongoing poor appetite and inadequate oral intake meeting less than 50% estimated nutrition needs x 2 weeks prior to admission Status Active Problem Recommendation Dietitian Recommendations/Changes Will continue liberalized regular diet; strongly encouraged improved PO as able at meals especially since patient is refusing all oral nutrition supplements. Will d/c ensure compact with medpass due to patient refusal . Will monitor PO and weight closely. Suggest considering a possible appetite stimulant in light of refusing all PO nutrition supplements. Lab / Micro Data Result Diagrams: 10/09/21 06:11 10/09/21 06:11 Labs: Laboratory Results - last 24 hr 10/09/21 06:11: WBC 6.3, RBC 4.54, Hgb 13.7, Hct 40.9, MCV 90.1, MCH 30.2, MCHC 33.5, RDW Std Deviation 47.0 H, RDW Coeff of Anthony 14.3, Plt Count 277, MPV 8.3, Immature Gran % (Auto) 0.800, Neut % (Auto) 74.2 H, Lymph % (Auto) 17.9 L, [place] % (Auto) 6.9, Eos % (Auto) 0.0, Baso % (Auto) 0.2, Absolute Neuts (auto) 4.7, Absolute Lymphs (auto) 1.12, Nucleated RBC % 0 10/09/21 06:11: Sodium 138, Potassium 3.8, Chloride 108 H, Carbon Dioxide 24.0, Anion Gap 6, BUN 18, Creatinine 0.75, Estim Creat Clear Calc 34.38, Est GFR (MDRD) Af Amer 96, Est GFR (MDRD) Non-Af 80, BUN/Creatinine Ratio 23.9 H, Glucose 104, Calcium 8.4 L, Total Bilirubin 0.50, AST 58 H, ALT 60 H, Alkaline Phosphatase 92, Total Protein 5.8 L, Albumin 2.1 L, Globulin 3.7, Albumin/Globulin Ratio 0.6 L 10/09/21 06:11: Procalcitonin 0.21 H Micro: Microbiology 10/09/21 07:53 Mucosa - Nasopharyngeal Respiratory Panel (PCR) - Final 10/08/21 12:20 Mucosa - Nasopharyngeal Influenza Types A,B Direct FA (IMELDA) - Final 10/08/21 06:43 Urine, Clean Catch Legionella Antigen - Final 10/08/21 06:43 Urine, Clean Catch Streptococcus pneumoniae Antigen (M - Final Physical Exam Const alert, oriented x3, no apparent distress, average body habitus and well nourished Constitutional Narrative: Older white female sitting up in a chair at the bedside, remains on supplemental oxygen, still remains to appear fatigued, nontoxic General Appearance: cooperative Exam Limitations: no limitations HEENT normocephalic, head/scalp atraumatic and moist oral mucous membranes HEENT Narrative: Mallampati 2, dentures in place, no thrush Head and Scalp: normocephalic Resp normal respiratory effort, no retractions, no use of accessory muscles and clear to auscultation bilaterally Resp Narrative: Scattered bilateral crackles worse at the bases Auscultation: Negative for crackles, rales, rhonchi or wheezes Cardio regular rate, regular rhythm, S1 normal heart sound, S2 normal heart sound, no murmurs, no rub, no gallops, no clicks and no JVD GI normal to inspection, nondistended, normoactive bowel sounds, soft to palpation, non-tender and non-distended; Negative for hepatosplenomegaly Extremity no clubbing, cyanosis or edema Peripheral Pulses: Yes pulses 2+ throughout Neuro oriented x3, moves all extremities and no focal motor deficits Sensorium / Orientation: awake and alert Speech: speech normal Psych affect normal Appearance: appropriate Assessment & Plan Assessment/Plan (1) Acute respiratory failure with hypoxia: (2) COVID-19: PLAN: Acute hypoxic respiratory failure secondary to COVID-19 pneumonia/? Superimposed bacterial pneumonia -Symptoms started on September 19, 2021 -Positive tests September 22, 2021 -Currently out of the window for needing isolation -Patient is fully vaccinated and boosted however is on Rituxan for rheumatoid arthritis and therefore is immunosuppressed -CT on 10/03/2021 - for PE however did show mild typical Covid findings -Strep pneumo and Legionella antigens negative -Rapid flu negative -Viral PCR is negative and this was tested secondary to persistent fevers -Decadron day 4 of 10 -Lasix 40 mg IV push daily -Diuresed well yesterday being -1150 -Is fairly euvolemic for the hospitalization with the balance that +20 -Repeat BMP in a.m. -Patient was out of the window for remdesivir -SpO2 on 1 L is 92% and wean oxygen as able -Continue incentive spirometer/Acapella -Encourage out of bed and mobility D-dimer elevation -Patient had negative CTA of her chest on 10/03/2021 -Low suspicion for PE even with representation -Patient did have increasing shortness of breath with a CT that was performed on the secondary to the contrast -Continue to monitor clinically -Continue Lovenox 30 mg subcu twice daily Mild transaminitis -Suspect related to viral illness -Slowly trending down -She does have history of acute hep A remotely Fevers -I would anticipate her to have ongoing fevers as high as she has been this far out from her initial Covid diagnosis -No fevers in about 24 hours now -Blood cultures are negative at 48 hours -Urine culture is negative and UA was unimpressive -Patient has been unable to produce a sputum however has been covered with empiric antibiotics -Continue empiric vanc/zosyn -Influenza rapid and PCR negative -Viral panel is negative -White count remains normal -Procalcitonin admission was 0.44 with repeat procalcitonin on 10/09/2021 at 0.21 -As needed Tylenol Hyperlipidemia -Continue home atorvastatin GERD -Continue Protonix Rheumatoid arthritis -Patient on Rituxan every 6 months -Refer for outpatient follow-up after discharge DVT prophylaxis -SCDs -Lovenox 30 mg subcu twice daily CODE STATUS -Full code *If patient remains afebrile and stable with regards to her oxygen in the next 24 hours would consider discharge home on 10/10/2021 patient has set up for 2 L oxygen at rest and exertion at home already anticipate home health care services will be needed at discharge* Charges/Coding Visit Charges Inpatient E&M: 11945 Subs Hosp L2
[2021-10-09] MEDS: Calcium (Elemental) 500 MG Tablet 1000 MG PO (17:57)
[2021-10-09] MEDS: Atorvastatin Calcium 10 MG Tablet 5 MG PO (21:21)
[2021-10-09] MEDS: Latanoprost 0.005% 1 Bottle 1 DRP EACH EYE (21:22)
[2021-10-10 05:55] LABS: Absolute Neutrophil Count 6.9 X10^3/uL (2.0-7.7); Hematocrit 39.6 % (37-47); Hemoglobin 13.4 g/dL (12.0-15.0); Lymphocyte % 16.6 % (19-41); Mean Corp Hgb Conc 33.8 g/dL (32-36); Mean Corpuscular Hgb 30.5 pg (27.0-32.0); Mean Corpuscular Volume 90.2 fL (81-99); Mean Platelet Vol. 8.5 fl (6.2-12.0); Monocyte# 0.61 X10^3/uL; Monocyte% 6.8 % (0-10); NRBC Flagged by Analyzer 0 % (0-5); Neutrophil # 6.87 X10^3/uL (2.7-7.7); Platelet Count 299 K/mm3 (150-450); RBC Distribution Width CV 14.4 % (11.6-14.6); RBC Distribution Width SD 47.4 fl (35.1-43.9); Red Blood Count 4.39 M/mm3 (4.2-5.4)
[2021-10-10 06:19] LABS: Anion Gap 7 (5-15); BUN 23 mg/dL (7-18); BUN/Creat Ratio 25.6 RATIO (10-20); Chloride 108 mmol/L (98-107); EST Glomerular Filtration Rate 65 mL/min (>60); Est Glom Filt Rate - Afr Amer 79 mL/min (>60); Glucose 88 mg/dL (74-106); Potassium 3.6 mmol/L (3.5-5.1); Sodium Level 142 mmol/L (136-145)
--- NOTE | 2021-10-10 07:34 | PCM.PN.HOSP ---
Subjective Subjective Patient is a 76-year-old lady on Rituxan for rheumatoid arthritis who presented with shortness of breath. Patient symptoms had apparently started on 320 02/11/2022. Patient tested positive for COVID on admission she was however outside the window for isolation. Chest x-ray obtained on admission demonstrated persistent bilateral pulmonary infiltrates admitted to regular nursing floor for further management Objective Data Objective Data Vital Signs: Vital Signs Temp Pulse Resp BP Pulse Ox 97.8 F 73 18 147/83 H 95 10/09/21 21:09 10/09/21 21:09 10/09/21 21:09 10/09/21 21:09 10/09/21 21:09 Oxygen Flow Rate (L/min) [ 2 AMBULATING with Oxygen #1] Oxygen Flow Rate (L/min) [At 92 REST with Oxygen] Oxygen Flow Rate (L/min) 2 Oxygen Delivery Method Nasal Cannula Weight: 64.1 kg Body Mass Index (BMI) 27.6 Intake & Output: Intake and Output for Last 24 Hours 10/08/21 10/09/21 10/10/21 23:59 23:59 23:59 Intake Total 1000 / 1000 1415 / 1415 50 / 50 Output Total 2150 / 2150 850 / 850 Balance -1150 / -1150 565 / 565 50 / 50 Medical Nutrition Assessment Dietitian: Malnutrition Criteria Met Start: 10/07/21 15:25 Freq: Status: Active Protocol: Document 10/07/21 15:25 RMA (Rec: 10/07/21 15:31 RMA [id number]) Nutrition Malnutrition Evidence of Malnutrition Exists Yes Malnutrition (severe): Acute Illness/Injury Evidenced By Suboptimal Energy Intake ( Severe),Weight Loss (Severe) Clinical Problem Acute Disease or Injury Related Malnutrition Etiology Severe protein-calorie malnutrition in the context of acute illness related to inadequate oral intake Signs/Symptoms as evidenced by unintentional weight loss ~4% decrease x past 2 weeks, ongoing poor appetite and inadequate oral intake meeting less than 50% estimated nutrition needs x 2 weeks prior to admission Status Active Problem Recommendation Dietitian Recommendations/Changes Will continue liberalized regular diet; strongly encouraged improved PO as able at meals especially since patient is refusing all oral nutrition supplements. Will d/c ensure compact with medpass due to patient refusal . Will monitor PO and weight closely. Suggest considering a possible appetite stimulant in light of refusing all PO nutrition supplements. Lab / Micro Data Result Diagrams: 10/10/21 05:20 10/10/21 05:20 Labs: Laboratory Results - last 24 hr 10/09/21 06:11: Procalcitonin 0.21 H 10/10/21 05:20: WBC 9.0, RBC 4.39, Hgb 13.4, Hct 39.6, MCV 90.2, MCH 30.5, MCHC 33.8, RDW Std Deviation 47.4 H, RDW Coeff of Anthony 14.4, Plt Count 299, MPV 8.5, Immature Gran % (Auto) 0.600, Neut % (Auto) 76.0 H, Lymph % (Auto) 16.6 L, [place] % (Auto) 6.8, Eos % (Auto) 0.0, Baso % (Auto) 0.0, Absolute Neuts (auto) 6.9, Absolute Lymphs (auto) 1.50, Nucleated RBC % 0 10/10/21 05:20: Sodium 142, Potassium 3.6, Chloride 108 H, Carbon Dioxide 27.0, Anion Gap 7, BUN 23 H, Creatinine 0.90, Estim Creat Clear Calc 38.20, Est GFR (MDRD) Af Amer 79, Est GFR (MDRD) Non-Af 65, BUN/Creatinine Ratio 25.6 H, Glucose 88, Calcium 9.0 Micro: Microbiology 10/09/21 07:53 Mucosa - Nasopharyngeal Respiratory Panel (PCR) - Final 10/08/21 12:20 Mucosa - Nasopharyngeal Influenza Types A,B Direct FA (IMELDA) - Final 10/08/21 06:43 Urine, Clean Catch Legionella Antigen - Final 10/08/21 06:43 Urine, Clean Catch Streptococcus pneumoniae Antigen (M - Final Physical Exam Narrative GENERAL: cooperative but slightly dyspneic at rest HEENT: Atraumatic; EYES; Anicteric, Normal Conjunctiva NECK; supple, normal thyroid, RESPIRATORY: Diminished to auscultation CARDIOVASCULAR: Regular S1 S2, GI: soft, normoactive bowel sounds, : No Renal angle tenderness; EXTREMITIES: No edema, no clubbing, MUSCULOSKELETAL: no muscle wasting NEURO: Awake; no lateralizing signs. SKIN: No Rash PSYCH; Flat affect Assessment & Plan Assessment/Plan (1) Acute respiratory failure with hypoxia: (2) COVID-19: PLAN: Patient is a 76-year-old lady on Rituxan for rheumatoid arthritis who presented with shortness of breath. Patient symptoms had apparently started on 320 02/11/2022. Patient tested positive for COVID on admission she was however outside the window for isolation. Chest x-ray obtained on admission demonstrated persistent bilateral pulmonary infiltrates admitted to regular nursing floor for further management 1. Acute hypoxic respiratory failure ? Secondary to COVID-19 pneumonia with suspected superimposed bacterial pneumonia admitted to regular nursing floor where patient is currently being managed per protocol in addition to supplemental oxygen. 2. COVID-19 pneumonia ? Patient started on Decadron and was deemed to be outside the window for remdesivir 3. Suspected superimposed bacterial pneumonia ? Culture sent, patient placed on Zosyn as well as oxygen titrated to keep saturation greater than 90 4. Acute congestive heart failure with preserved ejection fraction ? Patient managed with Lasix. Patient has no recent echo on file echo was therefore ordered. Currently on fluid restriction strict input and output in addition to daily with 5. Acute transaminitis ? Attributed to patient COVID-19 infection 6. Dyslipidemia -Patient is on statin therapy, continued at home dose 7. Rheumatoid arthritis ? Patient is on Rituxan every 6 months 8. Severe protein calorie malnutrition -as evidenced by weight loss and suboptimal energy level this is due to patient acute illness. Consult was placed to dietitian for dietary recommendations 9. GERD ? On PPI 10. DVT prophylaxis ? Enoxaparin 40 mg SC twice daily Charges/Coding Visit Charges Inpatient E&M: 47065 Subs Hosp L2
--- NOTE | 2021-10-10 09:10 | ECHOCS_ITS ---
Reason For Study: CHF Procedure This was a 2D Doppler, Color Flow transthoracic echocardiogram. The study was technically difficult. Contrast injection was performed. Exam performed portable in patient room. Left Ventricle Normal LV size. Left ventricular systolic function is normal. The estimated ejection fraction is 65 %. Diastolic function is indeterminate. No regional wall motion abnormalities noted. Right Ventricle Normal RV size. Normal systolic function. Atria Normal left atrium. Normal right atrium. No doppler evidence for ASD. Mitral Valve There is no mitral annular calcification. Normal mitral valve. Trivial mitral valve insufficiency. Tricuspid Valve Normal tricuspid valve. Trivial tricuspid valve insufficiency. Unable to estimate RV systolic pressure/pulmonary artery pressure due to technically difficult study. Aortic Valve Trisinus/trileaflet aortic valve. Normal aortic valve. Pulmonic Valve The pulmonic valve is not well visualized. Great Vessels Normal sized aortic root. Pericardium/Pleural No pericardial effusion. Medication 22 gauge I.V. with prn adaptor inserted into left arm. Diluted definity 4ml given slow IV push to enhance endocardial definition. MMode/2D Measurements & Calculations LVIDd: 2.9 cm IVSd: 1.4 cm Ao root diam: 3.1 cm LVIDs: 1.6 cm LVPWd: 0.94 cm FS: 44.4 % LVAd ap4: 22.5 cm2 LVAd ap2: 18.7 cm2 SV(MOD-sp4): 35.7 ml LVLd ap4: 6.7 cm LVLd ap2: 6.8 cm EDV(MOD-sp4): 60.1 ml EDV(MOD-sp2): 41.7 ml EDV(sp4-el): 63.5 ml EDV(sp2-el): 43.5 ml LVAs ap4: 13.0 cm2 LVAs ap2: 10.0 cm2 LVLs ap4: 5.7 cm LVLs ap2: 5.7 cm ESV(MOD-sp4): 24.5 ml ESV(MOD-sp2): 14.8 ml ESV(sp4-el): 25.2 ml ESV(sp2-el): 14.9 ml EF(MOD-sp4): 59.3 % EF(MOD-sp2): 64.5 % EF(sp4-el): 60.3 % SV(MOD-sp2): 26.9 ml SV(sp4-el): 38.3 ml LA dimension(2D): 2.7 cm Doppler Measurements & Calculations MV E max ray: 75.3 cm/sec Lat Peak E' Ray: 6.1 cm/sec Med Peak E' Ray: 8.2 cm/sec MV A max ray: 121.1 cm/sec E/E' lat: 12.3 E/E' med: 9.2 MV E/A: 0.62 Ao V2 max: 131.8 cm/sec LV V1 max: 122.4 cm/sec PA V2 max: 94.2 cm/sec Ao max P.9 mmHg LV V1 max P.0 mmHg ECHO/Echo Complete W/ Contrast Interpretation Summary The study was technically difficult. Contrast injection was performed. Left ventricular systolic function is normal. The estimated ejection fraction is 65 %. Trivial mitral valve insufficiency. Trivial tricuspid valve insufficiency. Unable to estimate RV systolic pressure/pulmonary artery pressure due to techni chucky difficult study. Diastolic function is indeterminate. Ordering Physician: Fuentes Cortez Performed By: Virginia Arguello RCS
[2021-10-10 09:11] VITALS: BP 135/67; PULSE 88; RESP 18; TEMP 36.3; O2SAT 97
[2021-10-10] MEDS: 0.9% Saline Lock 10 ML Syringe IV (09:22)
[2021-10-10] MEDS: dexAMETHasone 4 MG Tablet 6 MG PO (09:23)
[2021-10-10] MEDS: Pantoprazole Sodium 40 MG Tablet PO (09:23)
[2021-10-10] MEDS: Enoxaparin 40 MG/0.4 ML Syringe SC ×2 (09:23→21:52)
[2021-10-10] MEDS: Calcium (Elemental) 500 MG Tablet 1000 MG PO ×2 (09:23→17:12)
[2021-10-10] MEDS: Furosemide 40 MG/4 ML Vial IV (09:23)
[2021-10-10 09:30] VITALS: O2SAT 92
[2021-10-10 13:54] VITALS: O2SAT 91; O2SAT 96
[2021-10-10 14:41] VITALS: BP 113/61; PULSE 86; RESP 18; TEMP 36.8; O2SAT 98
--- NOTE | 2021-10-10 15:14 | CHAPLAIN ---
Type of Pastoral Visit ___ Initial Visit _x__ Follow-up Visit ___ On-call Visit ___ General Patient Visit ___ Spiritual Assessment ___ Family Conference ___ Bereavement ___ Rapid Response ___ Code Blue ___ Other (describe below) Pastoral Care Referral From _x__ Patient _x__ Family ___ Nurse ___ Physician ___ [employer] ___ Apparatus Repair Mechanic ___ Other (describe below) Sacrament/Intervention _x__ Active listening ___ Anointing ___ Anglican ___ Bereavement ___ Communion _x__ Gavi exploration ___ ___ Life review _x__ Prayer ___ Reconciliation ___ Sacrament of Sick _x__ Supportive presence ___ Wedding ___ Other (describe below) Pastoral Comments patient and spouse request spiritual care and prayer; presence and prayer given for both
[2021-10-10 15:47] VITALS: O2SAT 96
[2021-10-10 20:02] VITALS: BP 116/70; PULSE 89; RESP 18; TEMP 36.6; O2SAT 95
[2021-10-10] MEDS: Latanoprost 0.005% 1 Bottle 1 DRP EACH EYE (21:52)
[2021-10-10] MEDS: Atorvastatin Calcium 10 MG Tablet 5 MG PO (21:52)
[2021-10-11 02:28] VITALS: BP 124/67; PULSE 77; RESP 18; TEMP 36.6; O2SAT 98
[2021-10-11 06:08] LABS: Basophil# 0.01 X10^3/uL; Basophil% 0.1 % (0-1); Hematocrit 41.3 % (37-47); Hemoglobin 13.8 g/dL (12.0-15.0); Lymphocyte % 17.6 % (19-41); Mean Corp Hgb Conc 33.4 g/dL (32-36); Mean Corpuscular Hgb 30.1 pg (27.0-32.0); Mean Platelet Vol. 8.8 fl (6.2-12.0); Monocyte% 6.3 % (0-10); NRBC Flagged by Analyzer 0 % (0-5); Neutrophil # 6.02 X10^3/uL (2.7-7.7); Neutrophil % 75.5 % (47-70); Platelet Count 340 K/mm3 (150-450); RBC Distribution Width SD 46.3 fl (35.1-43.9); Red Blood Count 4.59 M/mm3 (4.2-5.4)
[2021-10-11 06:40] LABS: ALB/GLOB Ratio 0.6 RATIO (0.9-2.4); AST(SGOT) 66 U/L (15-37); Alanine Aminotransfer ALT/SGPT 95 U/L (13-56); Albumin, Serum 2.2 g/dL (3.2-5.0); Alkaline Phosphatase 101 U/L (45-117); Anion Gap 8 (5-15); BUN 25 mg/dL (7-18); BUN/Creat Ratio 27.7 RATIO (10-20); Bilirubin, Direct 0.18 mg/dL (0.00-0.30); Calcium,Total 8.8 mg/dL (8.5-10.1); Chloride 103 mmol/L (98-107); EST Glomerular Filtration Rate 65 mL/min (>60); Est Glom Filt Rate - Afr Amer 78 mL/min (>60); Globulin 3.5 g/dL (2.2-4.2); Glucose 88 mg/dL (74-106); Potassium 3.2 mmol/L (3.5-5.1); Protein, Total 5.7 g/dL (6.4-8.2); Sodium Level 139 mmol/L (136-145)
--- NOTE | 2021-10-11 08:22 | DS.PCM_ITS ---
Providers Date of Admission: 10/06/21 Primary Care Physician: Dr. Martínez Cruz MD Reason For Visit: COVID WITH HYPOXIA Diagnosis Discharge Diagnosis (1) Acute respiratory failure with hypoxia: Status: Acute Code(s): J96.01 - Acute respiratory failure with hypoxia (2) COVID-19: Status: Acute Code(s): U07.1 - COVID-19 Medications at Discharge Home Medications Fish Oil 1 ea PO BID 08/05/13 cholecalciferol (vitamin D3) [Vitamin D3] 2,000 unit PO DAILY 08/05/13 imipramine HCl [Tofranil] 10 mg PO QHS 08/05/13 pantoprazole 40 mg PO DAILY 08/05/13 calcium carbonate [Caltrate 600] 1,200 mg PO BIDCM 03/07/14 Rotuxin IV .[id number] 01/21/16 atorvastatin 5 mg PO QHS 01/21/16 biotin 5,000 mcg PO DAILY 05/07/17 zinc 50 mg PO DAILY 05/07/17 ferrous sulfate [iron] 325 mg PO DAILY 10/03/21 latanoprost 1 drp EACH EYE DAILY 10/03/21 ipratropium bromide 2 spray INTRANASAL BID 10/06/21 cefdinir 300 mg PO BID #10 cap 10/11/21 dexamethasone 6 mg PO DAILY #5 tab 10/11/21 furosemide [Lasix] 20 mg PO DAILY #60 tab 10/11/21 guaifenesin [Mucinex] 1,200 mg PO BID #14 tab 10/11/21 potassium chloride [Klor-Con M20] 20 meq PO BIDCM #14 tab 10/11/21 Hospital Course Procedures 2-D Echocardiogram Summary of Care Provided Minutes Spent on Discharge: 40 Hospital Course: Patient is a 76-year-old lady on Rituxan for rheumatoid arthritis who presented with shortness of breath. Patient symptoms had apparently started on 320 02/11/2022. Patient tested positive for COVID on admission she was however outside the window for isolation. Chest x-ray obtained on admission demonstrated persistent bilateral pulmonary infiltrates admitted to regular nursing floor for further management 1. Acute hypoxic respiratory failure ? Secondary to COVID-19 pneumonia with suspected superimposed bacterial pneumonia admitted to regular nursing floor where patient is currently being managed per protocol in addition to supplemental oxygen. 2. COVID-19 pneumonia ? Patient started on Decadron and was deemed to be outside the window for remdesivir - Discharged home with decafrom 3. Suspected superimposed bacterial pneumonia ? Culture sent, patient placed on Zosyn as well as oxygen titrated to keep saturation greater than 90 - discharged on cefdinir 4. Acute congestive heart failure with preserved ejection fraction ? Patient managed with Lasix. Patient has no recent echo on file echo was therefore ordered. Currently on fluid restriction strict input and output in addition to daily with - Echo results as below 5. Acute transaminitis ? Attributed to patient COVID-19 infection 6. Dyslipidemia -Patient is on statin therapy, continued at home dose 7. Rheumatoid arthritis ? Patient is on Rituxan every 6 months 8. Severe protein calorie malnutrition -as evidenced by weight loss and suboptimal energy level this is due to patient acute illness. Consult was placed to dietitian for dietary recommendations 9. GERD ? On PPI 10. DVT prophylaxis ? Enoxaparin 40 mg SC twice daily Physical Exam Narrative GENERAL: cooperative HEENT: Atraumatic; EYES; Anicteric, Normal Conjunctiva NECK; supple, normal thyroid, RESPIRATORY: Diminished to auscultation CARDIOVASCULAR: Regular S1 S2, GI: soft, normoactive bowel sounds, : No Renal angle tenderness; EXTREMITIES: No edema, no clubbing, MUSCULOSKELETAL: no muscle wasting NEURO: Awake; no lateralizing signs. SKIN: No Rash PSYCH; Flat affect Medical Records Data Medical Nutrition Assessment Dietitian: Malnutrition Criteria Met Start: 10/07/21 15: 25 Freq: Status: Active Protocol: Document 10/07/21 15:25 RMA (Rec: 10/07/21 15:31 RMA [id number]) Nutrition Malnutrition Evidence of Malnutrition Exists Yes Malnutrition (severe): Acute Illness/Injury Evidenced By Suboptimal Energy Intake ( Severe),Weight Loss (Severe) Clinical Problem Acute Disease or Injury Related Malnutrition Etiology Severe protein-calorie malnutrition in the context of acute illness related to inadequate oral intake Signs/Symptoms as evidenced by unintentional weight loss ~4% decrease x past 2 weeks, ongoing poor appetite and inadequate oral intake meeting less than 50% estimated nutrition needs x 2 weeks prior to admission Status Active Problem Recommendation Dietitian Recommendations/Changes Will continue liberalized regular diet; strongly encouraged improved PO as able at meals especially since patient is refusing all oral nutrition supplements. Will d/c ensure compact with medpass due to patient refusal . Will monitor PO and weight closely. Suggest considering a possible appetite stimulant in light of refusing all PO nutrition supplements. Weight / BMI Weight Weight: 64.1 kg Body Mass Index (BMI) 27.6 ABG / Lab / Microbiology Data Result Diagrams: 10/11/21 05:22 10/11/21 05:22 Laboratory: Laboratory Results - last 24 hr 10/11/21 05:22: WBC 8.0, RBC 4.59, Hgb 13.8, Hct 41.3, MCV 90.0, MCH 30.1, MCHC 33.4, RDW Std Deviation 46.3 H, RDW Coeff of Anthony 14.0, Plt Count 340, MPV 8.8, Immature Gran % (Auto) 0.500, Neut % (Auto) 75.5 H, Lymph % (Auto) 17.6 L, [place] % (Auto) 6.3, Eos % (Auto) 0.0, Baso % (Auto) 0.1, Absolute Neuts (auto) 6.0, Absolute Lymphs (auto) 1.40, Nucleated RBC % 0 10/11/21 05:22: Sodium 139, Potassium 3.2 L, Chloride 103, Carbon Dioxide 28.0, Anion Gap 8, BUN 25 H, Creatinine 0.90, Estim Creat Clear Calc 38.20, Est GFR (MDRD) Af Amer 78, Est GFR (MDRD) Non-Af 65, BUN/Creatinine Ratio 27.7 H, Glucose 88, Calcium 8.8, Total Bilirubin 0.50, Direct Bilirubin 0.18, AST 66 H, ALT 95 H, Alkaline Phosphatase 101, Total Protein 5.7 L, Albumin 2.2 L, Globulin 3.5, Albumin/Globulin Ratio 0.6 L Microbiology: Microbiology 10/09/21 07:53 Mucosa - Nasopharyngeal Respiratory Panel (PCR) - Final 10/08/21 12:20 Mucosa - Nasopharyngeal Influenza Types A,B Direct FA (IMELDA) - Final 10/08/21 06:43 Urine, Clean Catch Legionella Antigen - Final 10/08/21 06:43 Urine, Clean Catch Streptococcus pneumoniae Antigen (M - Final Radiography Diagnostic Testing: Radiology Impression Echocardiogram 10/10/21 09:10 Interpretation Summary The study was technically difficult. Contrast injection was performed. Left ventricular systolic function is normal. The estimated ejection fraction is 65 %. Trivial mitral valve insufficiency. Trivial tricuspid valve insufficiency. Unable to estimate RV systolic pressure/pulmonary artery pressure due to technically difficult study. Diastolic function is indeterminate. Ordering Physician: Fuentes Cortez Performed By: Virginia Arguello RCS D/C Instructions Discharge Diet: No restrictions Discharge Activity: Return to Normal Activity Call your doctor if you observe: Fever of 101 or Higher, Shortness of breath, Fainting spells and Chest pain Meaningful Use Info Meaningful Use Diagnoses (Choose all that apply): CHF CHF SABA/ARB ordered at discharge?: No Reason SABA/ARB not ordered?: Not indicated Documented LVEF (%): 60 Discharge Plan Admission Admit Date/Time: 10/06/21 17:55 Attending Provider: Fuentes Cortez Primary Care Provider: Martínez Cruz Discharge Orders/Prescriptions Prescriptions: New potassium chloride [Klor-Con M20] 20 mEq Tablet,Er Particles/Crystals 20 meq PO BIDCM Qty: 14 RF: 0 dexamethasone 4 mg Tablet 6 mg PO DAILY Qty: 5 RF: 0 furosemide [Lasix] 20 mg tablet 20 mg PO DAILY Qty: 60 RF: 0 cefdinir 300 mg capsule 300 mg PO BID Qty: 10 RF: 0 Mucinex 1,200 mg tablet extended release 12hr 1,200 mg PO BID Qty: 14 RF: 0 Continued pantoprazole 40 MG tablet 40 mg PO DAILY RF: 0 cholecalciferol (vitamin D3) [Vitamin D3] 1,000 UNIT capsule 2,000 unit PO DAILY RF: 0 Fish Oil 1 EACH capsule 1 ea PO BID RF: 0 imipramine HCl [Tofranil] 10 MG tablet 10 mg PO QHS RF: 0 calcium carbonate [Caltrate 600] 600 MG tablet 1,200 mg PO BIDCM RF: 0 atorvastatin 10 MG tablet 5 mg PO QHS RF: 0 Rotuxin IV .[id number] RF: 0 zinc 50 MG tablet 50 mg PO DAILY RF: 0 biotin 5,000 MCG tablet,disintegrating 5,000 mcg PO DAILY RF: 0 latanoprost 0.005 % Drops 1 drp EACH EYE DAILY RF: 0 ferrous sulfate [iron] 325 mg (65 mg iron) Tablet 325 mg PO DAILY RF: 0 ipratropium bromide 21 mcg (0.03 %) [place],Non-Aerosol 2 spray INTRANASAL BID RF: 0 Referrals / Follow Up: Martínez Cruz MD [Primary Care Provider] - In 1 Week Disposition Disposition (needs filled in before D/C Order can be placed): Home, Self Care Charges/Coding Visit Charges Inpatient E&M: 20354 Disch Hosp
--- NOTE | 2021-10-11 09:03 | CASEMGMT ---
Pt did not qualify for increased O2. Notified Aditi at [facility] that pt will be dc'd today. Pt aware that her O2 rx did not change. Her family is bringing in her portable O2 tank. Pt is aware that C will start tomorrow. Pt denies further needs.
[2021-10-11 09:10] VITALS: O2SAT 97
[2021-10-11 10:00] VITALS: O2SAT 87; O2SAT 92
[2021-10-11 10:04] VITALS: BP 107/58; PULSE 86; RESP 18; TEMP 36.5; O2SAT 96
[2021-10-11] MEDS: dexAMETHasone 4 MG Tablet 6 MG PO (10:10)
[2021-10-11] MEDS: Calcium (Elemental) 500 MG Tablet 1000 MG PO ×2 (10:10→16:39)
[2021-10-11] MEDS: Enoxaparin 40 MG/0.4 ML Syringe SC (10:11)
[2021-10-11] MEDS: Pantoprazole Sodium 40 MG Tablet PO (10:11)
[2021-10-11] MEDS: Furosemide 40 MG/4 ML Vial IV (10:11)
[2021-10-11] MEDS: 0.9% Saline Lock 10 ML Syringe IV (10:11)
[2021-10-11] MEDS: Potassium Chloride Oral Tablet 20 MEQ PO ×2 (10:15→17:40)
[2021-10-11 14:04] VITALS: BP 120/62; PULSE 91; RESP 18; TEMP 36.4; O2SAT 97
== END 2021-10-11 18:19 | disposition home health service (06) | DRG 177 ==
LOC: ED 18:30 → MS3 18:32
PROVIDERS: Internal Medicine; Nurse Practitioner; Admitting Provider Family Medicine; Emergency Provider Emergency Medicine; PCP Family Medicine; Visit Provider Internal Medicine
DX: U07.1 COVID-19 (principal); J12.82 Pneumonia due to coronavirus disease 2019; J96.01 Acute respiratory failure with hypoxia; E43 Unspecified severe protein-calorie malnutrition; I50.31 Acute diastolic (congestive) heart failure; J15.9 Unspecified bacterial pneumonia; Z99.81 Dependence on supplemental oxygen; M06.9 Rheumatoid arthritis, unspecified; K21.9 Gastro-esophageal reflux disease without esophagitis; E78.5 Hyperlipidemia, unspecified; Z68.27 Body mass index [BMI] 27.0-27.9, adult; Z79.01 Long term (current) use of anticoagulants; Z79.899 Other long term (current) drug therapy
CPT/HCPCS: 36415; 71045; 71275; 80048; 80053; 80076; 81001; 83605; 84145; 84484; 85025; 85379; 85610; 85730; 87040; 87086; 87088; 87449; 87633; 87804; 93005; 93306; 93356; 94667; 94762; 96361; 96374; 97110; 97162; 97166; 97530; 97802; 99251; 99285; J7040; J7050; Q9957; Q9967; A4216; C8929; G0463; J1940; J2405

== ENCOUNTER 2021-10-14 15:38 | Emergency (ER) | payer MEDICARE, OTHER, SELFPAY ==
[2021-10-14 15:40] VITALS: BP 125/73; PULSE 84; RESP 15; TEMP 36.4; O2SAT 97; BMI 23.7
[2021-10-14] MEDS: 0.9% Normal Saline 1,000 ML 1000 ML IV (16:27)
[2021-10-14 16:30] VITALS: BP 115/70; PULSE 71; RESP 18
[2021-10-14 16:33] LABS: Absolute Lymphocyte Count 0.91 X10^3/uL (0.83-4.51); Absolute Neutrophil Count 9.1 X10^3/uL (2.0-7.7); Basophil# 0.01 X10^3/uL; Basophil% 0.1 % (0-1); Eosinophil# 0.01 X10^3/uL; Eosinophils% 0.1 % (0-5); Hemoglobin 14.5 g/dL (12.0-15.0); Lymphocyte # 0.91 X10^3/ul (0.83-4.51); Lymphocyte % 8.7 % (19-41); Mean Corp Hgb Conc 33.7 g/dL (32-36); Mean Corpuscular Hgb 30.7 pg (27.0-32.0); Mean Corpuscular Volume 91.1 fL (81-99); Mean Platelet Vol. 8.8 fl (6.2-12.0); Monocyte# 0.37 X10^3/uL; Monocyte% 3.5 % (0-10); NRBC Flagged by Analyzer 0 % (0-5); Platelet Count 413 K/mm3 (150-450); RBC Distribution Width CV 13.5 % (11.6-14.6); RBC Distribution Width SD 45.6 fl (35.1-43.9); Red Blood Count 4.72 M/mm3 (4.2-5.4); White Blood Count 10.5 K/mm3 (4.4-11.0)
[2021-10-14 17:02] LABS: ALB/GLOB Ratio 0.6 RATIO (0.9-2.4); AST(SGOT) 136 U/L (15-37); Alanine Aminotransfer ALT/SGPT 228 U/L (13-56); Albumin, Serum 2.5 g/dL (3.2-5.0); Alkaline Phosphatase 141 U/L (45-117); Anion Gap 5 (5-15); BUN 27 mg/dL (7-18); BUN/Creat Ratio 21.3 RATIO (10-20); Calcium,Total 9.9 mg/dL (8.5-10.1); Chloride 104 mmol/L (98-107); Creatinine, Serum 1.27 mg/dL (0.55-1.02); EST Glomerular Filtration Rate 43 mL/min (>60); Est Glom Filt Rate - Afr Amer 53 mL/min (>60); Estimated Creatinine Clearance 31.17 ml/min; Glucose 133 mg/dL (74-106); Potassium 5.7 mmol/L (3.5-5.1); Protein, Total 6.5 g/dL (6.4-8.2); Sodium Level 133 mmol/L (136-145)
[2021-10-14 17:13] VITALS: BP 121/66; PULSE 68; RESP 21
[2021-10-14 18:41] VITALS: BP 123/69; PULSE 67; RESP 18
--- NOTE | 2021-10-14 20:07 | EX.ED.DYSGE1 ---
HPI History of Present Illness Chief Complaint: Weakness Detail of Chief Complaint: Generalized weakness concern for dehydration Informant: patient, spouse/S.O. and PCP Onset/Context/Timing Onset: Days Context: Gradual Onset Timing: Continuous Quality: Placed on Lasix for congestive heart failure Location: Not applicable Current Severity: Mild Maximum Severity: Moderate Worsened by: Suspect Lasix Relieved by: Nothing Associated Symptoms Associated Symptoms: Thirst, dry mouth, lightheadedness and generalized weakness Narrative Narrative: Patient is a 76-year-old woman who was recently admitted for COVID. She had bilateral infiltrates. There is also evidence of heart failure. She had preserved ejection fraction. She was placed on 20 mg of Lasix. She denied orthopnea, PND or pedal edema. She complains of feeling weak and not well. She denies fever, chills night sweats. She denies weight gain or weight loss. She denies ocular, visual auditory symptoms. She denies cardiac or respiratory symptoms. She denies dysuria, frequency, urgency or hematuria. Prior similar symptoms: No Recent Illness/Hospital[facility]: [facility] Medical History CPAP (continuous positive airway pressure) dependence GERD (gastroesophageal reflux disease) History of concussion History of COVID-19 History of hepatitis A History of malaria History of rheumatic fever as a child Hyperlipidemia Rheumatoid arthritis Sleep apnea Home Medications Fish Oil 1 ea PO BID 08/05/13 [History Last Taken Unknown] cholecalciferol (vitamin D3) [Vitamin D3] 2,000 unit PO DAILY 08/05/13 [History Last Taken Unknown] imipramine HCl [Tofranil] 10 mg PO QHS 08/05/13 [History Last Taken 10/05/21] pantoprazole 40 mg PO DAILY 08/05/13 [History Last Taken 10/06/21] calcium carbonate [Caltrate 600] 1,200 mg PO BIDCM 03/07/14 [History Last Taken Unknown] Rotuxin IV .[id number] 01/21/16 [History Last Taken 07/21/21] atorvastatin 5 mg PO QHS 01/21/16 [History Last Taken 10/05/21] biotin 5,000 mcg PO DAILY 05/07/17 [History Last Taken Unknown] zinc 50 mg PO DAILY 05/07/17 [History Last Taken Unknown] latanoprost 1 drp EACH EYE DAILY 10/03/21 [History Last Taken 10/05/21] ipratropium bromide 2 spray INTRANASAL BID 10/06/21 [History Last Taken 10/05/21] cefdinir 300 mg PO BID #10 cap 10/11/21 [Rx Last Taken Unknown] furosemide [Lasix] 20 mg PO DAILY #60 tab 10/11/21 [Rx Last Taken Unknown] guaifenesin [Mucinex] 1,200 mg PO BID #14 tab 10/11/21 [Rx Last Taken Unknown] potassium chloride [Klor-Con M20] 20 meq PO BIDCM #14 tab 10/11/21 [Rx Last Taken Unknown] Allergy/AdvReac Type Severity Reaction Status Date / Time tramadol Allergy Mild NAUSEA, Verified 10/14/21 15:39 VOMIT acetaminophen [From Tylenol] AdvReac Intermediate LIVER ENZ Verified 10/14/21 15:39 UP ibuprofen AdvReac Intermediate LIVER ENZ Verified 10/14/21 15:39 UP CORTISONE EYE DROPS AdvReac Other Uncoded 10/14/21 15:39 Family History Other Cancer Heart disease Surgical History Status post spigelian hernia repair, follow-up exam Social History (Updated 10/14/21 @ 20:[address] Levar Miller MD) household members: spouse Smoking Status: Never smoker substance use type: does not use ROS ROS ED Constitutional Constitutional ED: Denies chills, fever(s), subjective, sweats or weight loss Eyes Eyes: Denies blurry vision, change in vision or diplopia ENT ENT ED: Denies ear pain, rhinorrhea or sore throat Cardiovascular Cardiovascular: Denies chest pain, palpitations or racing heartbeat Respiratory/Chest Respiratory/Chest: Reports dyspnea, dyspnea on exertion and other Details: Respiratory symptoms are chronic since diagnosis of COVID-19 bilateral pneumonia ; Denies cough Gastrointestinal Gastrointestinal: Reports nausea; Denies abdominal pain, constipation, diarrhea or vomiting Genitourinary Genitourinary ED: Reports urinary frequency; Denies dysuria or hematuria Musculoskeletal Musculoskeletal: Denies arthralgias, back pain, myalgias or neck pain Integumentary Denies rash Neurologic Neurologic: Reports weakness; Denies headache(s) or paresthesias Endocrine Endocrinology: Denies polydipsia, polyphagia or polyuria EXAM Physical Exam Const Vital Signs: 10/14/21 15:40 10/14/21 16:28 10/14/21 16:30 Temperature 97.6 F L Temperature Source Temporal Pulse Rate 84 71 Respiratory Rate 15 18 Respiratory Effort Normal Non-Labored Blood Pressure 125/73 H 115/70 Blood Pressure Mean 90 85 Pulse Ox 97 Oxygen Delivery Method Nasal Cannula Oxygen Flow Rate (L/min) 2 10/14/21 17:13 10/14/21 18:41 Temperature Temperature Source Pulse Rate 68 67 Respiratory Rate 21 H 18 Respiratory Effort Blood Pressure 121/66 H 123/69 H Blood Pressure Mean 84 87 Pulse Ox Oxygen Delivery Method Oxygen Flow Rate (L/min) Positive well nourished and well developed General Appearance ED: well developed and NAD; Negative for cyanotic, diaphoretic or pallor HEENT Reports TM's clear and dry mucous membranes Negative for trauma or tenderness Tympanic Membrane ED: Yes TM's clear Mouth ED: Yes dry mucous membranes Mouth: dry mucous membranes Eyes PERRL and EOMs intact bilaterally General Eye ED: Negative for pale conjunctiva or scleral icterus Neck no lymphadenopathy, supple and no JVD Chest Wall inspection of chest normal and palpation of chest normal Resp normal respiratory effort and clear to auscultation bilaterally Cardio regular rate, regular rhythm, S1 normal heart sound, S2 normal heart sound and no murmurs GI normal to inspection, nondistended, normoactive bowel sounds, non-tender and non-distended Palpation: soft Back/Spine no CVA tenderness Cervical Spine: Negative for cervical spine tenderness Thoracic Spine / Upper Back: Negative for thoracic spinal tenderness or paraspinal muscle tenderness Extremity normal to inspection General Extremety ED: Negative for edema or tenderness General Extremity: Negative for edema Neuro oriented x3 and CN's II-XII intact bilaterally Sensorium / Orientation: alert Motor Exam: strength 5/5 throughout Psych mental status grossly normal Skin no rashes or lesions noted, no wounds and No skin turgor normal General Skin Exam: Negative for elasticity normal, jaundice or pallor MDM MDM MDM Narrative Medical decision making narrative: Clinically patient is dehydrated. There is concern that patient may have renal dysfunction. 1 L of normal saline was ordered. Blood work was ordered to assess for anemia, renal function, hypokalemia. Patient was reassessed at 2006. She reports feeling better. Patient was placed on Lasix because of fluid overload from the COVID. Since she has a preserved ejection fraction will discontinue the Lasix. Patient was placed on Lasix because of fluid congestion due to COVID. Since she is now dehydrated with a bump in creatinine and elevated potassium is due to potassium supplement she was instructed to discontinue the furosemide and discontinue the potassium supplement. Lab Data Lab results narrative: CBC is unremarkable. Comprehensive metabolic panel is remarkable for a potassium of 5.7. BUN is 27 with a creatinine 1.27. Prior creatinine was 0.9. GFR is below 60, 43. Glucose is slightly evaded 133. Transaminases are elevated. Suspect this to be due to COVID. Labs: Laboratory Results - last 24 hr 10/14/21 10/14/21 16:20 16:20 WBC 10.5 RBC 4.72 Hgb 14.5 Hct 43.0 MCV 91.1 MCH 30.7 MCHC 33.7 RDW Std Deviation 45.6 H RDW Coeff of Anthony 13.5 Plt Count 413 MPV 8.8 Immature Gran % (Auto) 0.600 Neut % (Auto) 87.0 H Lymph % (Auto) 8.7 L [place] % (Auto) 3.5 Eos % (Auto) 0.1 Baso % (Auto) 0.1 Absolute Neuts (auto) 9.1 H Absolute Lymphs (auto) 0.91 Nucleated RBC % 0 Sodium 133 L Potassium 5.7 H Chloride 104 Carbon Dioxide 24.0 Anion Gap 5 BUN 27 H Creatinine 1.27 H Estim Creat Clear Calc 31.17 Est GFR (MDRD) Af Amer 53 L Est GFR (MDRD) Non-Af 43 L BUN/Creatinine Ratio 21.3 H Glucose 133 H Calcium 9.9 Total Bilirubin 0.50 AST 136 H ALT 228 H Alkaline Phosphatase 141 H Total Protein 6.5 Albumin 2.5 L Globulin 4.0 Albumin/Globulin Ratio 0.6 L Discharge Plan Triage Chief Complaint: Weakness ED Provider: Levar Miller Dx/Rx/DC Orders Clinical Impression: Acute kidney insufficiency, Dehydration, moderate, Acute hyperkalemia Instructions: ED Dehydration (Adult), ED Hyperkalemia, ED Renal Insufficiency Prescriptions: No Action pantoprazole 40 MG tablet 40 mg PO DAILY RF: 0 cholecalciferol (vitamin D3) [Vitamin D3] 1,000 UNIT capsule 2,000 unit PO DAILY RF: 0 Fish Oil 1 EACH capsule 1 ea PO BID RF: 0 imipramine HCl [Tofranil] 10 MG tablet 10 mg PO QHS RF: 0 calcium carbonate [Caltrate 600] 600 MG tablet 1,200 mg PO BIDCM RF: 0 atorvastatin 10 MG tablet 5 mg PO QHS RF: 0 Rotuxin IV .[id number] RF: 0 zinc 50 MG tablet 50 mg PO DAILY RF: 0 biotin 5,000 MCG tablet,disintegrating 5,000 mcg PO DAILY RF: 0 latanoprost 0.005 % Drops 1 drp EACH EYE DAILY RF: 0 ipratropium bromide 21 mcg (0.03 %) [place],Non-Aerosol 2 spray INTRANASAL BID RF: 0 potassium chloride [Klor-Con M20] 20 mEq Tablet,Er Particles/Crystals 20 meq PO BIDCM Qty: 14 RF: 0 furosemide [Lasix] 20 mg tablet 20 mg PO DAILY Qty: 60 RF: 0 cefdinir 300 mg capsule 300 mg PO BID Qty: 10 RF: 0 Mucinex 1,200 mg tablet extended release 12hr 1,200 mg PO BID Qty: 14 RF: 0 Primary Care Provider: Martínez Cruz Referrals: Martínez Cruz MD [Primary Care Provider] - Keep Hilda appointment Activity Restrictions/Additional Instructions: 1 discontinue taking furosemide 2. Discontinue taking the potassium supplement 3. When you see your doctor you will need repeat blood work Disposition Disposition: Home, Self Care
[2021-10-14 20:32] VITALS: BP 125/80; PULSE 73; RESP 20
[2021-10-14 20:51] VITALS: BP 128/80; PULSE 68; RESP 15; O2SAT 97
== END 2021-10-14 20:56 | disposition home or self-care (01) ==
PROVIDERS: Emergency Provider Emergency Medicine; PCP Family Medicine; Visit Provider Emergency Medicine
DX: E86.0 Dehydration (principal); M06.9 Rheumatoid arthritis, unspecified; I50.30 Unspecified diastolic (congestive) heart failure; N28.9 Disorder of kidney and ureter, unspecified; E78.5 Hyperlipidemia, unspecified; E87.5 Hyperkalemia; Z86.16 Personal history of COVID-19; G47.30 Sleep apnea, unspecified; K21.9 Gastro-esophageal reflux disease without esophagitis; Z79.899 Other long term (current) drug therapy
CPT/HCPCS: 80053; 85025; 96360; 99284; J7030; A4216

== ENCOUNTER → 2022-01-12 | Outpatient (CLI) | payer MEDICARE, OTHER, SELFPAY ==
[2022-01-12] MEDS: Methacholine Chloride 18 ml neb kit INHALATION (07:03)
--- NOTE | 2022-01-12 13:01 | BRONCHALL ---
Bronchoprovocation Challenge Bronchoprovocation Challenge Bronchoprovocation Challenge: BRONCHOPROVOCATION STUDY INTERPRETATION Brief HPI: Patient is a 76 year old female, currently under the care of Dr. Coates, who presents to [facility] for a bronchoprovocation study secondary to diagnosis of. Respiratory therapist reports good effort and reproducible results. Interpretation: Initial spirometry showed no large airways obstructive ventilatory defect. The patient was then given increasingly concentrated doses of methacholine in a stepwise/standardized fashion, using a modified ATS protocol. The patient?s maximum reduction in FEV1 was 13 percent predicted. Impression: Negative Bronchoprovocation study. This is NOT consistent with the diagnosis of asthma.
== END | disposition home or self-care (01) ==
LOC: PSN 06:52
PROVIDERS: PCP Family Medicine
DX: R06.09 Other forms of dyspnea (principal)
CPT/HCPCS: 94070; 95070

== ENCOUNTER → 2022-02-10 | Outpatient (CLI) | payer MEDICARE, OTHER, SELFPAY ==
[2022-02-10 13:03] VITALS: BP 133/71; PULSE 85; RESP 16; O2SAT 98; BMI 27.3
[2022-02-10 14:25] VITALS: BP 119/68; PULSE 79
== END | disposition home or self-care (01) ==
PROVIDERS: PCP Family Medicine
DX: M05.79 Rheumatoid arthritis with rheumatoid factor of multiple sites without organ or systems involvement (principal); Z79.899 Other long term (current) drug therapy
CPT/HCPCS: 96372; Q0220

== ENCOUNTER → 2022-04-17 | Outpatient (CLI) | payer MEDICARE, OTHER, SELFPAY ==
--- NOTE | 2022-04-17 14:40 | BI_ITS ---
MAMMOGRAPHY - BILATERAL SCREENING REASON FOR EXAM: Female, 77 years old. Routine annual screening examination. PERTINENT HISTORY: Mother with breast cancer. Remote left stereotactic breast biopsy. TECHNIQUE: Digital bilateral breast ericka (3D mammographic acquisition) in the CC and MLO projections. 2-D mediolateral oblique (MLO) and craniocaudad (CC) views of both breasts were obtained. CAD: Full Field Digital Mammography with Computer Added Detection was performed. COMPARISON: Comparison is made with prior examination 04/12/2021 and 04/09/2020. FINDINGS: Breast Composition: There are scattered areas of fibroglandular density. There are no dominant masses or suspicious calcifications. Stable small benign-appearing bilateral axillary lymph nodes. No other significant abnormalities are identified. There has been no significant change since the prior study. BI/SCRN MAMM (CAD)W/ERICKA BILAT IMPRESSION: Stable bilateral screening mammogram. Yearly follow-up mammogram recommended. (A) ASSESSMENT CATEGORY: BIRADS Category 2: Benign. A letter regarding these results will be sent to the patient by the facility within 30 days. Approximately 10% of breast cancers are not detected by mammography. A normal mammogram should not delay biopsy of a clinically suspicious abnormality. [id number] Electronically Signed: Fernando Mo MD at 15:32 EDT ,
== END | disposition home or self-care (01) ==
LOC: OPBI 14:39
PROVIDERS: PCP Family Medicine; Visit Provider Family Medicine
DX: Z12.31 Encounter for screening mammogram for malignant neoplasm of breast (principal)
CPT/HCPCS: 77063; 77067

== ENCOUNTER → 2023-04-18 | Outpatient (CLI) | payer MEDICARE, OTHER, SELFPAY ==
--- NOTE | 2023-04-18 10:01 | BI_ITS ---
MAMMOGRAPHY - BILATERAL SCREENING REASON FOR EXAM: Female, 78 years old. Routine annual screening examination. PERTINENT HISTORY: Mother with breast cancer. Remote left stereotactic breast biopsy. TECHNIQUE: Digital bilateral breast ericka (3D mammographic acquisition) in the CC and MLO projections. 2-D mediolateral oblique (MLO) and craniocaudad (CC) views of both breasts were obtained. CAD: Full Field Digital Mammography with Computer Added Detection was performed. COMPARISON: Comparison is made with prior study dated April 17, 2022 and April 12, 2021. FINDINGS: Breast Composition: There are scattered areas of fibroglandular density. There are no dominant masses or suspicious calcifications. Stable small benign-appearing bilateral axillary lymph nodes. No other significant abnormalities are identified. There has been no significant change since the prior study. BI/SCRN MAMM (CAD)W/ERICKA BILAT IMPRESSION: Stable bilateral screening mammogram. Yearly follow-up mammogram recommended. (A) ASSESSMENT CATEGORY: BIRADS Category 2: Benign. A letter regarding these results will be sent to the patient by the facility within 30 days. Approximately 10% of breast cancers are not detected by mammography. A normal mammogram should not delay biopsy of a clinically suspicious abnormality. [id number] Electronically Signed: Fernando Mo MD at 10:53 EDT ,
--- NOTE | 2023-04-18 10:19 | BD_ITS ---
STUDY: DUAL ENERGY X-RAY ABSORPTIOMETRY / DXA REASON FOR EXAM: Female, 78 years old. M810 TECHNIQUE: Bone Mineral Density (BMD) measurements of lumbar spine and bilateral hips were obtained. COMPARISON: Comparison is made with prior study April 14, 2021. FINDINGS: Lumbar Spine (L1-L4): g/cm2 (0.870) / T-score (-1.0) / Z-score (1.4) Findings are suggestive of normal bone density with a low fracture risk. Left Femur Total: g/cm2 (0.762) / T-score (-1.5) / Z-score (0.5) Left Femoral Neck: g/cm2 (0.577) / T-score (-2.5) / Z-score (-0.2) Right Femur Total: g/cm2 (0.798) / T-score (-1.2) / Z-score (0.8) Right Femoral Neck: g/cm2 (0.609) / T-score (-2.2) / Z-score (0.1) The T-Scores on the most recent prior examination were: Lumbar Spine (L1-L4): There has been improvement of bone density since the previous examination. Left Femur Total: which represents a worsening of 1.7%. Right Femur Total: which represents a worsening of 2.5%. BD/Dexa Bone Density Study IMPRESSION: The patient is considered osteopenic as outlined below according to World [place] Organization (WHO) criteria with a high fracture risk. There has been worsening of bone density since the previous examination. Reference Information: The T-score is the number of standard deviations above or below the standard which is normal for young adults at their peak bone mineral density. The World Health Organization (WHO) interprets the T-scores as follows: Above -1 Normal bone density Between -1 and -2.5 Osteopenia Equal to / or below -2.5 Osteoporosis As a practical clinical guideline, osteopenia may be graded as follows: Mild -1 through -1.5 Moderate -1.6 through -2.0 Severe -2.1 through -2.4 The Z-score is the number of standard deviations above or below age-matched controls. A Z-score of less than -1.5 would be considered abnormal. References: 1. NIH Osteoporosis and Related Bone Diseases www osteo.org 2. International Society for Clinical Densitometry www iscd.org 3. National Osteoporosis Foundation www nof.org Electronically Signed: Fernando Mo MD at 14:04 EDT ,
== END | disposition home or self-care (01) ==
PROVIDERS: PCP Family Medicine; Referring Provider Family Medicine; Visit Provider Internal Medicine Rheumatology
DX: Z12.31 Encounter for screening mammogram for malignant neoplasm of breast (principal); Z80.3 Family history of malignant neoplasm of breast; M81.0 Age-related osteoporosis without current pathological fracture
CPT/HCPCS: 77063; 77067; 77080

== ENCOUNTER 2023-04-27 10:30 | Emergency (ER) | payer MEDICARE, OTHER, SELFPAY ==
[2023-04-27 10:33] VITALS: BP 158/76; PULSE 115; RESP 18; TEMP 36.6; O2SAT 94
--- NOTE | 2023-04-27 11:04 | EKG12_ITS ---
Test Reason : CP Blood Pressure : / mmHG Vent. Rate : 096 BPM Atrial Rate : 096 BPM P-R Int : 158 ms QRS Dur : 080 ms QT Int : 368 ms P-R-T Axes : 045 -37 027 degrees QTc Int : 464 ms Normal sinus rhythm Left axis deviation Abnormal ECG Confirmed by JESSICA MATHEW, MILAGRO ([id number]), business editor SADE FONTENOT ([id number]) on 05/07/2023 7:44:04 AM Referred By: AR/PL Confirmed By:NIEVES LOPEZ MD
--- NOTE | 2023-04-27 11:09 | RAD_ITS ---
STUDY: X-RAY CHEST REASON FOR EXAM: Female, 78 years old. Chest pain TECHNIQUE: Single AP portable view of the chest. COMPARISON: Comparison is made with prior study October 06, 2021. FINDINGS: EKG electrodes are seen. The lungs are clear and expanded. There is no demonstrated pleural abnormality. Normal size heart. Normal mediastinum and gertrudis. Normal visualized pulmonary arteries. There is atherosclerotic tortuosity of the aortic arch and descending thoracic aorta. There are diffuse degenerative changes of the visualized thoracic spine. Normal visualized ribs, clavicles, and shoulders. There is no demonstrated abnormality of the visualized soft tissue structures of the upper abdomen. RAD/Chest 1 View (Portable) IMPRESSION: Normal x-ray examination of the chest. Electronically Signed: Fernando Mo MD at 11:22 EDT ,
[2023-04-27 11:11] VITALS: O2SAT 100
[2023-04-27] MEDS: 0.9% Normal Saline (1000mL) 500 ML 1000 ML IV (11:14)
[2023-04-27 11:21] LABS: Absolute Lymphocyte Count 2.01 X10^3/uL (0.83-4.51); Absolute Neutrophil Count 4.5 X10^3/uL (2.0-7.7); Basophil# 0.06 X10^3/uL; Basophil% 0.8 % (0-1); Eosinophil# 0.11 X10^3/uL; Eosinophils% 1.5 % (0-5); Hematocrit 45.6 % (37-47); Hemoglobin 15.1 g/dL (12.0-15.0); Lymphocyte # 2.01 X10^3/ul (0.83-4.51); Lymphocyte % 27.9 % (19-41); Mean Corp Hgb Conc 33.1 g/dL (32-36); Mean Corpuscular Hgb 30.7 pg (27.0-32.0); Mean Corpuscular Volume 92.7 fL (81-99); Mean Platelet Vol. 9.2 fl (6.2-12.0); Monocyte% 6.9 % (0-10); NRBC Flagged by Analyzer 0 % (0-5); Neutrophil # 4.49 X10^3/uL (2.7-7.7); Neutrophil % 62.5 % (47-70); Platelet Count 373 K/mm3 (150-450); RBC Distribution Width CV 13.6 % (11.6-14.6); RBC Distribution Width SD 46.1 fl (35.1-43.9); Red Blood Count 4.92 M/mm3 (4.2-5.4); White Blood Count 7.2 K/mm3 (4.4-11.0)
--- NOTE | 2023-04-27 11:21 | ED.VIS.CHEST ---
HPI History of Present Illness Chief Complaint: Palpitations Informant: patient Narrative Narrative: Patient presents with episodes of palpitations. She had one Christo. She had one today and she had a couple in between. She describes it as a fluttering feeling when she is checked sometimes her heart rates only in the high 90s but other times its been up to about 120. She had a friend check and it was about 140 or 145 earlier today. Patient does feel a little bit dyspneic with this. She states she does not have pain but she has just a little bit of pressure. In between she feels fine. She is not having symptoms now. She has never had this before. No recent travel surgery immobilization personal or family history of DVT or PE. She does not have a history of high blood pressure or diabetes. She had a stress test or echo years ago. She was told in the past she could have had a heart attack but never been officially diagnosed with that and does not recall any symptoms that would have matched it. No history of atrial fibrillation or flutter. She has not been sick recently. [facility] Medical History CPAP (continuous positive airway pressure) dependence GERD (gastroesophageal reflux disease) History of concussion History of COVID-19 History of hepatitis A History of malaria History of rheumatic fever as a child Hyperlipidemia Rheumatoid arthritis Sleep apnea Home Medications cholecalciferol (vitamin D3) 25 mcg (1,000 unit) capsule (Vitamin D3) 2,000 unit PO DAILY 08/05/13 [History Last Taken Unknown] imipramine HCl 10 mg tablet (Tofranil) 10 mg PO QHS 08/05/13 [History Last Taken 10/05/21] omega-3 fatty acids-fish oil 340 mg-1,000 mg capsule (Fish Oil) 1 ea PO BID 08/05/13 [History Last Taken Unknown] pantoprazole 40 mg tablet,delayed release 40 mg PO DAILY 08/05/13 [History Last Taken 10/06/21] calcium carbonate 600 mg calcium (1,500 mg) tablet (Caltrate 600) 1,200 mg PO BIDCM 03/07/14 [History Last Taken Unknown] Rotuxin IV .R1AHEODF RA 01/21/16 [History Last Taken 07/21/21] atorvastatin 10 mg tablet 5 mg PO QHS 01/21/16 [History Last Taken 10/05/21] biotin 5,000 mcg disintegrating tablet 5,000 mcg PO DAILY 05/07/17 [History Last Taken Unknown] zinc 50 mg tablet 50 mg PO DAILY 05/07/17 [History Last Taken Unknown] latanoprost 0.005 % eye drops 1 drp EACH EYE DAILY 10/03/21 [History Last Taken 10/05/21] ipratropium bromide 21 mcg (0.03 %) nasal spray 2 spray intranasal BID SINUS 10/06/21 [History Last Taken 10/05/21] cefdinir 300 mg capsule 300 mg PO BID #10 caps 10/11/21 [Rx Last Taken Unknown] furosemide 20 mg tablet (Lasix) 20 mg PO DAILY #60 tabs 10/11/21 [Rx Last Taken Unknown] guaifenesin 1,200 mg tablet, extended release 12 hr (Mucinex) 1,200 mg PO BID #14 tabs 10/11/21 [Rx Last Taken Unknown] potassium chloride 20 mEq tablet,extended release(part/cryst) (Klor-Con M) 20 meq PO BIDCM #14 tabs 10/11/21 [Rx Last Taken Unknown] Allergy/AdvReac Type Severity Reaction Status Date / Time tramadol Allergy Mild NAUSEA, Verified 04/27/23 10:32 VOMIT acetaminophen [From Tylenol] AdvReac Intermediate LIVER ENZ Verified 04/27/23 10:32 UP ibuprofen AdvReac Intermediate LIVER ENZ Verified 04/27/23 10:32 UP cortisone AdvReac Unknown Other Verified 04/27/23 10:32 Family History Other Cancer Heart disease Surgical History Status post spigelian hernia repair, follow-up exam Social History household members: spouse Smoking Status: Never smoker substance use type: does not use ROS ROS ED ROS Narrative A complete review of systems was performed and is negative except as documented in the history of present illness. Some specific details below. Constitutional: No recent fevers or chills. No malaise. EYE: No visual changes. ENT: No difficulty swallowing. No swelling. No pain. No reflux symptoms. CV: See history of present illness. No fluttering or palpitations now. She feels normal. Respiratory: See history of present illness. No dyspnea now. GI: No abdominal pain. No nausea vomiting diarrhea. No blood in stool. : No frequency dysuria or hematuria. Musculoskeletal: No recent trauma. No pains. No swelling. No history of DVT. Skin: No rash. Nondiaphoretic. Neuro: No weakness or numbness. Endocrine: No polyuria or polydipsia. EXAM Physical Exam Narrative Exam Narrative: CONSTITUTIONAL: Patient is nontoxic in appearance. The patient looks comfortable. Work of breathing looks normal. HEENT: No notable trauma. Mucous membranes moist. EYES: No conjunctival injection. No proptosis. NECK:No JVD. No stridor. CARDIOVASCULAR: Regular rate. Regular rhythm. No notable murmur. No JVD. On the monitor she appears to be in a normal sinus rhythm with a rate about 95. I see a rare PVC but these do not seem to cause her symptoms. This does not look like flutter or fibrillation. But she is also not having symptoms now. RESPIRATORY: No respiratory distress. Breathing is unlabored. No wheezes. No rhonchi. No rales. No pain with a deep breath. No chest wall tenderness. Saturations are normal at 100% on room air showing no hypoxia. GASTROINTESTINAL: Not distended. Bowel sounds are normal. No tenderness. No guarding. No rebound. No palpable mass. No bruit is heard. GENITOURINARY: No tenderness over the bladder. No CVA tenderness. MUSCULOSKELETAL: Atraumatic. No peripheral edema. No cord. No tenderness along the deep venous system. No asymmetry. No distended veins. Peripheral pulses are normal x4. NEUROLOGICAL: Patient is alert and appropriate. No focal deficit noted. SKIN: No noted rashes. No diaphoresis. PSYCHIATRIC: Patient is calm. Mood is appropriate. Const Vital Signs: 04/27/23 10:33 04/27/23 11:01 04/27/23 11:11 Temperature 98 F Temperature Source Temporal Pulse Rate 115 H Respiratory Rate 18 Respiratory Effort Normal Non-Labored Blood Pressure 158/76 H Blood Pressure Mean 103 Pulse Ox 94 100 Oxygen Delivery Method Room Air Room Air MDM MDM MDM Narrative Medical decision making narrative: My independent interpretation the patient's single view AP chest x-ray shows no acute process and final reading is similar. Patient CBC is overall normal. Patient's electrolytes show no marked abnormalities. Minimal elevation of the BUN and creatinine and chloride. She was given some IV fluids here. Glucose is also just lightly and 149. This can be rechecked. This does not need acute treatment. Patient's troponin is negative at 8 despite having episodes for the last week. I rechecked the patient. She is not having symptoms. I went to her monitor and checked over her rhythm since she got here. She has been normal sinus at about 85. I do not even see any PVCs on her record and monitor. I think with her overall health, symptoms, negative work-up we are safe to get her home. I Amber see if we get a Holter monitor placed on her though. She has seen Dr. Michele Jimenez before and we recommend follow-up. Lab Data Attestation: I reviewed the patient's lab results. Labs: Laboratory Results - last 24 hr 04/27/23 10:57 WBC 7.2 RBC 4.92 Hgb 15.1 H Hct 45.6 MCV 92.7 MCH 30.7 MCHC 33.1 RDW Std Deviation 46.1 H RDW Coeff of Anthony 13.6 Plt Count 373 MPV 9.2 Immature Gran % (Auto) 0.400 Neut % (Auto) 62.5 Lymph % (Auto) 27.9 Harmon % (Auto) 6.9 Eos % (Auto) 1.5 Baso % (Auto) 0.8 Absolute Neuts (auto) 4.5 Absolute Lymphs (auto) 2.01 Nucleated RBC % 0 Sodium 141 Potassium 3.8 Chloride 110 H Carbon Dioxide 25.0 Anion Gap 6 BUN 20 H Creatinine 1.10 H Est GFR (MDRD) Af Amer 62 Est GFR (MDRD) Non-Af 51 L BUN/Creatinine Ratio 18.2 Glucose 149 H Calcium 9.8 Troponin I High Sens 8 Radiography Diagnostic Testing: Clinical Impression(s) from Imaging Studies Chest X-Ray 04/27/23 11:09 IMPRESSION: Normal x-ray examination of the chest. Electronically Signed: Fernando Mo MD at 11:22 EDT , EKG Initial EKG: Comments: My independent interpretation the patient's EKG shows sinus rhythm with overall rate of 96. No ectopy. No acute ST elevation or depression. Mild nonspecific changes. Slight left axis deviation. NM interval, QRS duration and QTc are normal. Discharge Plan Triage Chief Complaint: Palpitations ED Provider: Danny Plascencia Dx/Rx/DC Orders Clinical Impression: Heart palpitations Instructions: ED Palpitations Prescriptions: No Action pantoprazole 40 MG tablet 40 mg PO DAILY Patient Comments: REFLUX cholecalciferol (vitamin D3) [Vitamin D3] 1,000 UNIT capsule 2,000 unit PO DAILY Patient Comments: SUPPLEMENT Fish Oil 1 EACH capsule 1 ea PO BID Patient Comments: SUPPLEMENT imipramine HCl [Tofranil] 10 MG tablet 10 mg PO QHS Patient Comments: BLADDER calcium carbonate [Caltrate 600] 600 MG tablet 1,200 mg PO BIDCM atorvastatin 10 MG tablet 5 mg PO QHS Rotuxin IV .[id number] Patient Comments: EVERY 6 MONTHS. DOSAGE UNKNOWN. ALSO RECIEVES SOLUMEDROL AND TYLENOL WITH INFUSION zinc 50 MG tablet 50 mg PO DAILY biotin 5,000 MCG tablet,disintegrating 5,000 mcg PO DAILY latanoprost 0.005 % Drops 1 drp EACH EYE DAILY ipratropium bromide 21 mcg (0.03 %) [place],Non-Aerosol 2 spray INTRANASAL BID potassium chloride [Klor-Con M20] 20 mEq Tablet,Er Particles/Crystals 20 meq PO BIDCM Qty: 14 0RF furosemide [Lasix] 20 mg tablet 20 mg PO DAILY Qty: 60 0RF cefdinir 300 mg capsule 300 mg PO BID Qty: 10 0RF Mucinex 1,200 mg tablet extended release 12hr 1,200 mg PO BID Qty: 14 0RF Primary Care Provider: Martínez Cruz Referrals: Martínez Cruz MD [Primary Care Provider] - Jairo Alexander MD [Med Staff - Active Staff] - As soon as possible (Call Sunday for an appointment as soon as possible.) Disposition Disposition: Home, Self Care
[2023-04-27 11:39] LABS: Anion Gap 6 (5-15); BUN 20 mg/dL (7-18); BUN/Creat Ratio 18.2 RATIO (10-20); Calcium,Total 9.8 mg/dL (8.5-10.1); Chloride 110 mmol/L (98-107); EST Glomerular Filtration Rate 51 mL/min (>60); Est Glom Filt Rate - Afr Amer 62 mL/min (>60); Glucose 149 mg/dL (74-106); Potassium 3.8 mmol/L (3.5-5.1); Sodium Level 141 mmol/L (136-145); Troponin-I HS 8 pg/mL (3.0-54.0)
[2023-04-27 13:22] VITALS: BP 124/79; PULSE 86; RESP 18; O2SAT 100; BMI 28.5
[2023-04-27 13:47] LABS: Bedside Glucose 57 mg/dL (74-106)
== END 2023-04-27 14:11 | disposition home or self-care (01) ==
PROVIDERS: Emergency Provider Emergency Medicine; PCP Family Medicine; Visit Provider Emergency Medicine
DX: R00.2 Palpitations (principal); E78.5 Hyperlipidemia, unspecified; Z79.899 Other long term (current) drug therapy; Z86.16 Personal history of COVID-19
CPT/HCPCS: 96360; 99284; 71045; 80048; 82962; 84484; 85025; 93005; J7030; A4216

== ENCOUNTER → 2023-04-27 | Outpatient (CLI) | payer MEDICARE, OTHER, SELFPAY | END | disposition home or self-care (01) | LOC: CVS 13:08 | PROVIDERS: PCP Family Medicine; Visit Provider Internal Medicine Cardiovascular Disease | DX: R00.2 Palpitations (principal); E78.5 Hyperlipidemia, unspecified; Z79.899 Other long term (current) drug therapy; Z86.16 Personal history of COVID-19 | CPT/HCPCS: 71045; 80048; 82962; 84484; 85025; 93005; 93225; 93226; 96360; 99284; J7030; A4216 ==

== ENCOUNTER → 2023-05-24 | Outpatient (CLI) | payer MEDICARE, OTHER, SELFPAY ==
[2023-05-24 13:49] LABS: Hemoglobin A1c 5.3 % (3.8-5.6)
[2023-05-24 14:21] LABS: ALB/GLOB Ratio 1.2 RATIO (0.9-2.4); AST(SGOT) 18 U/L (15-37); Alanine Aminotransfer ALT/SGPT 25 U/L (13-56); Albumin, Serum 3.8 g/dL (3.2-5.0); Alkaline Phosphatase 124 U/L (45-117); Anion Gap 5 (5-15); BUN 14 mg/dL (7-18); BUN/Creat Ratio 13.7 RATIO (10-20); Calcium,Total 9.3 mg/dL (8.5-10.1); Chloride 109 mmol/L (98-107); Creatinine, Serum 1.02 mg/dL (0.55-1.02); EST Glomerular Filtration Rate 56 mL/min (>60); Est Glom Filt Rate - Afr Amer 67 mL/min (>60); Globulin 3.3 g/dL (2.2-4.2); Glucose 84 mg/dL (74-106); Potassium 4.1 mmol/L (3.5-5.1); Protein, Total 7.1 g/dL (6.4-8.2); Sodium Level 141 mmol/L (136-145); Thyroid Stim Hormone (TSH) 1.91 uIU/mL (0.358-3.74)
== END | disposition home or self-care (01) ==
LOC: LAB 12:15
PROVIDERS: PCP Family Medicine; Referring Provider Internal Medicine Cardiovascular Disease; Visit Provider Internal Medicine Cardiovascular Disease
DX: R73.01 Impaired fasting glucose (principal); I10 Essential (primary) hypertension; R00.2 Palpitations; R06.09 Other forms of dyspnea
CPT/HCPCS: 36415; 80053; 83036; 84443

== ENCOUNTER → 2023-05-25 | Outpatient (CLI) | payer MEDICARE, OTHER, SELFPAY ==
--- NOTE | 2023-05-28 09:33 | STRESSREP ---
Stress Test Report Date: 05/28/2023 Procedure: Exercise tolerance test/imaging study Indications: Dyspnea on exertion Consent: Per the patient Procedure: The patient exercised on a Navin protocol for 6 minutes and 15 seconds achieving a peak heart rate of 130 bpm (91% predicted maximal heart rate) with a peak blood pressure 146/70 mmHg and a peak MET capacity of 7.7 METs. The baseline ECG demonstrated sinus rhythm. The peak exercise ECG demonstrated no ischemic change. There were no cardiac dysrhythmias pretest, during exercise, or recovery. The functional capacity was considered average. There was complained of minimal chest tightness at peak exercise. The examination was discontinued secondary to target heart rate being achieved. The patient was injected with 11.5 mCi of technetium 99m Cardiolite and subsequently rest SPECT Cardiolite nuclear imaging was obtained in the horizontal long, vertical long, and short axis views. Post-exercise, the patient was injected with 33.9 mCi of technetium 99m Cardiolite and subsequently stress SPECT Cardiolite nuclear imaging was obtained in the horizontal long, vertical long, and short axis views. A gated Cardiolite study at peak stress was obtained. Rest and stress SPECT Cardiolite nuclear imaging status post realignment, normalization, and attenuation correction, demonstrates the appearance of relative uniform tracer uptake and myocardial perfusion appearing within normal limits. There is end systolic thickening and brightening. The gated Cardiolite study demonstrates myocardial thickening and inward wall motion. The reported LVEF is 82%. Impression: 1. Technically adequate (percent predicted maximal heart rate greater than 85%) exercise tolerance test 2. Peak exercise ECG with no ischemic changes 3. There were no cardiac dysrhythmias pretest, during exercise, or recovery 4. Rest and stress SPECT Cardiolite nuclear imaging demonstrate relative uniform tracer uptake and myocardial perfusion appearing within normal limits. 5. The gated Cardiolite study reports an LVEF of 82%. This note was generated with [employer] software. It may contain incorrect words, spelling, and punctuation that were not noted in checking the note before signing.
--- NOTE | 2023-05-28 09:39 | STRESSREP ---
Stress Test Report Date: 05/25/2023 Procedure: Exercise tolerance test Indications: SVT Consent: Per the patient Procedure: The patient exercised on a Navin protocol for 3 minutes and 29 seconds achieving a peak heart rate of 176 bpm (110% predicted maximal heart rate) with a peak blood pressure 160/72 mmHg and a peak MET capacity of approximately 5.7 MET's. The baseline ECG demonstrated sinus rhythm with PACs. The peak exercise ECG demonstrated no ischemic changes. Atrial runs noted during recovery. The functional capacity was considered below average. The patient had no complaints of chest discomfort during exercise or recovery. The examination was discontinued secondary to arrhythmia. Impression: 1. Technically adequate (percent predicted maximal heart rate greater than 85%) exercise tolerance test 2. Peak exercise ECG with no ischemic changes 3. Frequent PACs noted during exercise. Atrial runs noted during recovery. This note was generated with [employer] software. It may contain incorrect words, spelling, and punctuation that were not noted in checking the note before signing.
== END | disposition home or self-care (01) ==
PROVIDERS: PCP Family Medicine; Referring Provider Internal Medicine Cardiovascular Disease; Visit Provider Internal Medicine Cardiovascular Disease
DX: R06.09 Other forms of dyspnea (principal); I10 Essential (primary) hypertension; R00.2 Palpitations; G47.33 Obstructive sleep apnea (adult) (pediatric); E78.5 Hyperlipidemia, unspecified
CPT/HCPCS: 78452; 93017; A9500; A4216

== ENCOUNTER → 2023-05-29 | Outpatient (CLI) | payer MEDICARE, OTHER, SELFPAY ==
--- NOTE | 2023-05-29 07:57 | ECHOCS_ITS ---
Reason For Study: Palpitations Procedure This was a 2D Doppler, Color Flow transthoracic echocardiogram. The study was technically difficult. Contrast injection was performed. Exam performed in department. Left Ventricle Normal LV size. Mild eccentric left ventricular hypertrophy. Left ventricular systolic function is normal. The estimated ejection fraction is 65 %. Diastolic function is indeterminate. No regional wall motion abnormalities noted. Right Ventricle Normal RV size. Normal systolic function. Atria The left and right atria are normal. Mitral Valve The mitral valve is structurally normal. No prolapse or stenosis seen. Trivial mitral valve insufficiency. Tricuspid Valve Normal tricuspid valve. Trivial tricuspid valve insufficiency. Unable to estimate RV systolic pressure due to insufficient tricuspid regurgitant envelope. Aortic Valve Trisinus/trileaflet aortic valve. Pulmonic Valve Normal pulmonic valve. Trivial pulmonic valve insufficiency. Great Vessels Normal aortic root. Pericardium/Pleural Epicardial fat. No pericardial effusion. Medication 22 gauge I.V. with prn adaptor inserted into right arm. Diluted definity 2ml given slow IV push to enhance endocardial definition. MMode/2D Measurements & Calculations LVIDd: 3.6 cm IVSd: 1.2 cm Ao root diam: 3.0 cm LVIDs: 2.4 cm LVPWd: 0.86 cm LA dimension: 3.2 cm RVDd: 3.0 cm FS: 33.7 % LAV(MOD-bp): 30.9 ml LVAd ap4: 22.3 cm2 SV(MOD-sp4): 38.6 ml LAV(MOD-bp) Indexed: 19.0 ml/m2 LVLd ap4: 7.0 cm LAV(MOD-sp2): 35.4 ml EDV(MOD-sp4): 58.3 ml LAV(MOD-sp4): 23.6 ml EDV(sp4-el): 60.1 ml LVAs ap4: 11.6 cm2 LVLs ap4: 6.1 cm ESV(MOD-sp4): 19.7 ml ESV(sp4-el): 18.8 ml EF(MOD-sp4): 66.2 % EF(sp4-el): 68.7 % SV(sp4-el): 41.2 ml LA A4 area: 11.0 cm2 RA A4 area: 8.9 cm2 TAPSE: 1.5 cm Time Measurements MV dec time: 0.26 sec Doppler Measurements & Calculations MV E max ray: 87.6 cm/sec Lat Peak E' Ray: 5.2 cm/sec Med Peak E' Ray: 6.9 cm/sec MV A max ray: 115.3 cm/sec E/E' lat: 16.9 E/E' med: 12.8 MV E/A: 0.76 MV V2 max: 130.6 cm/sec MV P1/2t max ray: 105.1 cm/sec Ao V2 max: 130.9 cm/sec MV max P.8 mmHg MV P1/2t: 98.0 msec Ao max P.9 mmHg MV V2 mean: 65.2 cm/sec Ao V2 mean: 92.6 cm/sec MV mean P.1 mmHg MV dec slope: 314.1 cm/sec2 Ao mean P.9 mmHg MV V2 VTI: 41.4 cm MVA(P1/2t): 2.2 cm2 Ao V2 VTI: 35.2 cm AV (velocity ratio): 0.77 LV V1 max: 104.7 cm/sec PA V2 max: 68.4 cm/sec LV V1 max P.4 mmHg LV V1 mean P.6 mmHg LV V1 mean: 76.1 cm/sec LV V1 VTI: 27.0 cm ECHO/Echo Complete W/ Contrast Interpretation Summary The estimated ejection fraction is 65 %. Diastolic function is indeterminate. Mild eccentric left ventricular hypertrophy. The study was technically difficult. Contrast injection was performed. Ordering Physician: Preeti Estrada Referring Physician: Jasmeet Cruz Performed By: Abbe Izaguirre RCS
== END | disposition home or self-care (01) ==
LOC: CVS 07:56
PROVIDERS: PCP Family Medicine; Referring Provider Internal Medicine Cardiovascular Disease; Visit Provider Internal Medicine Cardiovascular Disease
DX: R00.2 Palpitations (principal)
CPT/HCPCS: 93306; Q9957; A4216; C8929

== ENCOUNTER → 2024-04-21 | Outpatient (CLI) | payer MEDICARE, OTHER, SELFPAY ==
--- NOTE | 2024-04-21 10:53 | BI_ITS ---
MAMMOGRAPHY - BILATERAL SCREENING REASON FOR EXAM: Female, 79 years old. Routine annual screening examination. PERTINENT HISTORY: Mother with breast cancer. Remote left stereotactic breast biopsy. TECHNIQUE: Digital bilateral breast ericka (3D mammographic acquisition) in the CC and MLO projections. 2-D mediolateral oblique (MLO) and craniocaudad (CC) views of both breasts were obtained. CAD: Full Field Digital Mammography with Computer Added Detection was performed. COMPARISON: Comparison is made with prior study April 18, 2023 and April 17, 2022. FINDINGS: Breast Composition: There are scattered areas of fibroglandular density. There are no dominant masses or suspicious calcifications. Stable small benign-appearing bilateral axillary lymph nodes. No other significant abnormalities are identified. There has been no significant change since the prior study. BI/SCRN MAMM (CAD)W/ERICKA BILAT IMPRESSION: Stable bilateral screening mammogram. Yearly follow-up mammogram recommended. (A) ASSESSMENT CATEGORY: BIRADS Category 2: Benign. A letter regarding these results will be sent to the patient by the facility within 30 days. Approximately 10% of breast cancers are not detected by mammography. A normal mammogram should not delay biopsy of a clinically suspicious abnormality. [id number] Electronically Signed: Fernando Mo MD at 13:52 EDT ,
== END | disposition home or self-care (01) ==
LOC: OPBI 10:52
PROVIDERS: PCP Family Medicine; Referring Provider Family Medicine; Visit Provider Family Medicine
DX: Z12.31 Encounter for screening mammogram for malignant neoplasm of breast (principal)
CPT/HCPCS: 77063; 77067

== ENCOUNTER → 2025-04-22 | Outpatient (CLI) | payer MEDICARE, OTHER, SELFPAY ==
--- NOTE | 2025-04-22 08:02 | BD_ITS ---
PROCEDURE: DEXA BONE DENSITY STUDY 04/22/2025 REASON FOR EXAM: F, age 80 y/o . Postmenopausal. TECHNIQUE: Procedure Code: BDDBD Modality: DX Procedure: DEXA BONE DENSITY STUDY COMPARISON: April 18, 2023. FINDINGS: BMD and T-SCORES Lumbar spine: 0.860 g/cm2, T-score -1.1 Levels: L1 through L4 Change from prior: Loss of 1.1%. Left femoral neck: 0.597 g/cm2, T-score -2.3 Femoral neck comparison data not recommended for monitoring change. Left total hip: 0.775 g/cm2, T-score -1.4 Change from prior: Improvement of 1.7%. Right femoral neck: 0.601 g/cm2, T-score -2.2 Femoral neck comparison data not recommended for monitoring change. Right total hip: 0.799 g/cm2, T-score -1.2 Change from prior: Improvement of 0.2%. The World Health Organization has defined the following categories based on bone density: Normal bone density: T-score equal to or greater than -1.0 Osteopenia: T-score between -1.0 and -2.5 Osteoporosis: T-score equal to or less than -2.5 FRAX (or Comparable) Fracture Risk Assessment: 10 Year Probability of Fracture: Major Osteoporotic Fracture: 42% Hip Fracture: 60% (Note: FRAX is not to be reported in setting of normal range bone density, osteoporosis on DEXA, known history of osteoporosis, prior osteoporotic hip or vertebral fracture, or for any patient undergoing pharmacological treatment for bone loss.) The National Osteoporosis Foundation (NOF) recommends pharmacological treatment for patients with a FRAX 10-year risk of 3% or higher for a hip fracture, or 20% or higher for a major osteoporotic fracture, to prevent osteoporosis and reduce fracture risk. The patient does meet the pharmacological treatment recommendations for prevention of osteoporosis. BD/Dexa Bone Density Study IMPRESSION: OSTEOPENIA. Recommend follow-up as clinically warranted. Reading Location: [id number]
--- NOTE | 2025-04-22 08:02 | BI_ITS ---
EXAM: SCRN MAMM (CAD)W/ERICKA BILAT DATE: 04/22/2025 CLINICAL HISTORY: F, Age 80 y/o , SCREENING Mother with breast cancer. Remote left stereotactic breast biopsy. TECHNIQUE: Procedure Code: [id number] Modality: MG Procedure: SCRN MAMM (CAD)W/ERICKA BILAT COMPARISON: Prior exam(s) dated April 21, 2024.. FINDINGS: TISSUE DENSITY: There are scattered areas of fibroglandular density. Bilateral Breast Mammographic Findings: No significant masses, calcifications or other abnormalities are identified. Stable small fat containing bilateral axillary lymph nodes. No suspicious masses, areas of developing architectural distortion, or suspicious calcifications. There has been no significant interval change. BI/SCRN MAMM (CAD)W/ERICKA BILAT IMPRESSION: Stable bilateral screening mammogram. OVERALL FINAL ASSESSMENT BI-RADS 2: BENIGN RECOMMENDATION: Routine annual follow-up in 1 Year Additional Recommendation none A letter with findings and recommendations will be mailed to the patient. Reading Location: [facility]
== END | disposition home or self-care (01) ==
PROVIDERS: PCP Family Medicine
DX: Z12.31 Encounter for screening mammogram for malignant neoplasm of breast (principal); M81.0 Age-related osteoporosis without current pathological fracture
CPT/HCPCS: 77063; 77067; 77080